=== PATIENT | female | born 1950 | race Caucasian/White ===

== ENCOUNTER → 2017-10-24 15:45 | Outpatient (CLI) | payer OTHER, SELFPAY ==
[2017-10-23 13:35] VITALS: TEMP 36.7
--- NOTE | 2017-10-24 15:51 | DI.CT.S_ITS ---
PROCEDURE: CT ABDOMEN PELVIS W CON INDICATIONS: Left lower quadrant pain for several months TECHNIQUE: After the administration of oral and intravenous contrast, 5 mm thick sections acquired from the diaphragms to the symphysis. 5 mm thick coronal and sagittal reformats were performed. For radiation dose reduction, the following was used: automated exposure control, adjustment of mA and/or kV according to patient size. COMPARISON: None. FINDINGS: Image quality: Excellent. ABDOMEN: Lung bases: Lung bases are clear. Heart size is normal. Solid organs: Nonenhancing 2 cm left lobe of the liver. Cholecystectomy with compensatory dilatation of the extrahepatic biliary system. No obstructing lesion identified. The pancreas, spleen, adrenal glands and kidneys are normal.. Peritoneum and bowel: Stomach and small bowel are normal in caliber and wall thickness. No free fluid or air. Appendectomy. The sigmoid and distal descending colon are decompressed but otherwise normal. Nodes and vessels: No retroperitoneal or mesenteric adenopathy. Aorta and inferior vena cava are normal in caliber. Miscellaneous: No ventral hernias. PELVIS: Genitourinary: Bladder wall thickness is normal. Hysterectomy. Miscellaneous: No inguinal hernias or adenopathy. Bones: No suspicious bony lesions. No vertebral body compression fractures. IMPRESSION: 1. The sigmoid and descending colon are decompressed which causes a degree of physiologic wall thickening. Very mild from colitis cannot be excluded. No obstruction, perforation, or drainable fluid collections. 2. Hepatic nodule most consistent with a simple cyst. Consider confirmation with ultrasound. Dictated by: Rafiq Goel M.D. on 10/25/2017 at 8:24 Approved by: Rafiq Goel M.D. on 10/25/2017 at 8:30
== END ==
PROVIDERS: Family Provider Family Medicine; PCP Family Medicine; Visit Provider Family Medicine
DX: K63.9 Disease of intestine, unspecified (principal); K76.9 Liver disease, unspecified
CPT/HCPCS: 74177; Q9967

== ENCOUNTER → 2018-05-13 13:55 | Outpatient (CLI) | payer OTHER, SELFPAY ==
[2018-05-13 15:32] LABS: Add Manual Diff / Slide Review NO; Basophils Percent Auto 0.8 % (0-2); Eosinophils Percent Auto 2.7 % (2-4); Hematocrit 46.2 % (36-46); Hemoglobin 15.6 g/dL (12.0-16.0); Lymphocytes Percent Auto 27.4 % (25-40); Mean Corpuscular HGB Conc 33.7 % (30-36); Mean Corpuscular Hemoglobin 31.6 PG (26-34); Mean Corpuscular Volume 93.8 fL (80-100); Monocytes Percent Auto 7.3 % (3-14); Neutrophils Absolute Auto 3900 /uL (3000-5900); Neutrophils Percent Auto 61.8 % (50-75); Platelet Count 305 X10^3/uL (150-400); Red Blood Cell Count 4.93 X10^6/uL (4.0-5.2); Red Cell Distribution Width 13.4 % (11.6-14.8); White Blood Cell Count 6.4 X10^3/uL (4.5-11.0)
[2018-05-13 16:51] LABS: Alanine Aminotransferase 30 IU/L (9-52); Albumin 4.8 g/dL (3.5-5.0); Albumin Globulin Ratio 1.8 (1.0-2.8); Alkaline Phosphatase 84 U/L (38-126); Aspartate Aminotransferase 24 IU/L (14-36); Bilirubin Total 0.5 mg/dL (0.2-1.3); Blood Urea Nitrogen 16 mg/dL (7-17); Calcium 9.6 mg/dL (8.4-10.2); Carbon Dioxide 28 mmol/L (22-32); Chloride 101 mmol/L (98-107); Cholesterol 229 mg/dL (140-199); Estimated Glomerular Filt Rate > 60.0 mL/min (>60); Globulin 2.7 g/dL (1.7-4.1); Glucose 92 mg/dL (80-110); HDL Cholesterol 52 mg/dL (40-60); HEMOLYSIS < 15 (0-50); LDL Cholesterol Calculated 115 mg/dL (<100); Potassium 4.8 mmol/L (3.4-5.1); Sodium 144 mmol/L (137-145); Total Protein 7.5 g/dL (6.3-8.2); Triglycerides 309 mg/dL (35-150)
== END ==
PROVIDERS: PCP Family Medicine; Visit Provider Family Medicine
DX: E78.5 Hyperlipidemia, unspecified (principal)
CPT/HCPCS: 36415; 80053; 80061; 85025

== ENCOUNTER → 2018-07-15 13:36 | Outpatient (CLI) | payer OTHER, SELFPAY ==
--- NOTE | 2018-07-15 13:41 | DI.RAD.S_ITS ---
PROCEDURE: XR SKULL<4V INDICATIONS: bump on front of skull TECHNIQUE: 2 view(s) of the skull acquired. COMPARISON: None. FINDINGS: Bones: No fractures. No suspicious bony lesions. Visualized sinuses appear clear. Soft tissues: No soft tissue calcifications. No suspicious soft tissue densities. IMPRESSION: No findings to explain clinical symptoms. If clinical symptoms persist or clinical suspicion for pathology is high, CT is suggested for further evaluation. Dictated by: Beth Rush M.D. on 07/15/2018 at 16:44 Approved by: Beth Rush M.D. on 07/15/2018 at 16:50
== END ==
PROVIDERS: PCP Family Medicine; Visit Provider Family Medicine
DX: M89.9 Disorder of bone, unspecified (principal)
CPT/HCPCS: 70250

== ENCOUNTER → 2018-09-08 13:39 | Outpatient (CLI) | payer OTHER, SELFPAY ==
--- NOTE | 2018-09-08 13:40 | DI.MRI.S_ITS ---
PROCEDURE: MR HEAD/BRAIN WO/W CON INDICATIONS: skull anomaly TECHNIQUE: Noncontrast axial T1 spin echo, axial T2 fast spin echo, sagittal and axial FLAIR, coronal T2 fast spin echo, axial gradient echo, axial diffusion and ADC through the brain. After the administration of contrast, axial and coronal T1 spin echo with fat saturation through the brain. COMPARISON: [facility], CR, XR SKULL<4V, 07/15/2018, 13:45. FINDINGS: Image quality: Excellent. CSF spaces: Basal cisterns are patent. No extra-axial fluid collections. Ventricles are normal in size and shape. Brain: No midline shift. No intracranial bleeds or masses. No abnormal intracranial enhancement. There is mild cerebral volume loss for age. There is moderate periventricular white matter chronic small vessel ischemic change. The brainstem appears normal. Diffusion-weighted images demonstrate no acute ischemic insults. No chronic ischemic insults. Normal intravascular flow voids are present. Skull and face: No suspicious osseous lesions. Calvarial is intact. A small focus of enhancement is noted in the left parietal area near midline, probably a venous jones or arachnoid granulation. Orbits appear normal. Sinuses: Sinuses and mastoids appear clear. IMPRESSION: 1. No suspicious skull lesions identified. 2. Mild cerebral volume loss. 3. Moderate periventricular white matter chronic small vessel ischemic changes. Dictated by: Beth Rush M.D. on 09/08/2018 at 15:23 Approved by: Beth Rush M.D. on 09/08/2018 at 17:36
== END ==
PROVIDERS: Family Provider Family Medicine; PCP Family Medicine; Visit Provider Family Medicine
DX: Q75.9 Congenital malformation of skull and face bones, unspecified (principal)
CPT/HCPCS: 70553; A9579

== ENCOUNTER → 2018-09-30 12:01 | Outpatient (CLI) | payer OTHER, SELFPAY ==
--- NOTE | 2018-09-30 12:05 | DI.MG.S_ITS ---
BILATERAL DIGITAL SCREENING MAMMOGRAM 3D/2D WITH CAD: 09/30/2018 CLINICAL: Baseline exam. Routine screening. No prior exams were available for comparison. The tissue of both breasts is heterogeneously dense. This may lower the sensitivity of mammography. Current study was also evaluated with a Computer Aided Detection (CAD) system. There are benign post operative findings in the left breast. No significant masses, calcifications, or other findings are seen in either breast. IMPRESSION: There is no mammographic evidence of malignancy. A 1 year screening mammogram is recommended. This exam was interpreted at Station ID: [id number]. NOTE: For mammograms, a report in lay terms will be sent to the patient. Approximately 15% of breast malignancies will not be visualized mammographically. In the management of a palpable breast mass, a negative mammogram must not discourage biopsy of a clinically suspicious lesion. Electronically Signed By: Jayden paredes/olman:09/30/2018 17:58:54 letter sent: Normal Exam ACR BI-RADS Category 2: Benign Finding(s) 3342F
== END ==
PROVIDERS: PCP Family Medicine; Visit Provider Family Medicine
DX: Z12.31 Encounter for screening mammogram for malignant neoplasm of breast (principal)
CPT/HCPCS: 77063; 77067

== ENCOUNTER → 2018-10-27 10:50 | Outpatient (CLI) | payer OTHER, SELFPAY ==
[2018-10-27 12:47] LABS: Alanine Aminotransferase 28 IU/L (9-52); Albumin 4.3 g/dL (3.5-5.0); Albumin Globulin Ratio 1.5 (1.0-2.8); Alkaline Phosphatase 79 U/L (38-126); Aspartate Aminotransferase 25 IU/L (14-36); BUN Creatinine Ratio 17.1 (6-22); Bilirubin Total 0.6 mg/dL (0.2-1.3); Blood Urea Nitrogen 12 mg/dL (7-17); Calcium 9.6 mg/dL (8.4-10.2); Carbon Dioxide 29 mmol/L (22-32); Chloride 101 mmol/L (98-107); Cholesterol 148 mg/dL (140-199); Estimated Glomerular Filt Rate > 60.0 mL/min (>60); Globulin 2.9 g/dL (1.7-4.1); Glucose 89 mg/dL (80-110); HDL Cholesterol 54 mg/dL (40-60); HEMOLYSIS < 15 (0-50); LDL Cholesterol Calculated 61 mg/dL (<100); Potassium 4.7 mmol/L (3.4-5.1); Sodium 140 mmol/L (137-145); Total Protein 7.2 g/dL (6.3-8.2); Triglycerides 166 mg/dL (35-150)
== END ==
PROVIDERS: PCP Family Medicine; Visit Provider Family Medicine
DX: E78.5 Hyperlipidemia, unspecified (principal)
CPT/HCPCS: 36415; 80053; 80061

== ENCOUNTER 2018-11-18 09:21 | Day surgery (SDC) | payer OTHER, SELFPAY ==
[2018-11-18] VITALS (8 sets, daily range): BP systolic 98–122; BP diastolic 62–83; PULSE 72–93; RESP 13–20; TEMP 36.4–36.8; O2SAT 94–98; BMI 21.5
--- NOTE | 2018-11-18 | PATH_ITS ---
[facility] Accession Number: [id number] . 01 Material submitted: . PART A: colon - COLON POLYP AT 15CM PART B: colon - COLON POLYPS AT ANAL VERGE . 02 Diagnosis: A. Colon at 15 cm, Polyp: Serrated lesion, most consistent with traditional serrated adenoma; please see comment. Negative for malignancy. . B. Colon at Anal Verge, Polyps: Fragments of hyperplastic polyp. MRV/11/19/2018 . 02 Comment: Part A) A traditional serrated adenoma is considered an advanced adenoma; as such, assurance of complete removal of the lesion and a shortened surveillance interval are recommended. There is no evidence of high-grade cytologic dysplasia or malignancy. . 02 Electronically signed: . Arnaldo Salmeron MD, PhD, Pathologist NPI- [id number] . 01 Gross description: . Part A: COLON POLYP AT 15CM: Received in formalin are multiple fragment(s) of franklin, soft tissue measuring 0.1 x 0.1 x 0.1 cm to 0.4 x 0.4 x 0.3 cm which is entirely submitted and submitted entirely in 1 cassette(s) Part B: COLON POLYPS AT ANAL VERGE: Received in formalin are 2 fragment(s) of franklin, soft tissue measuring 0.2 x 0.2 x 0.2 cm to 0.3 x 0.3 x 0.2 cm which is entirely submitted and submitted entirely in 1 cassette(s) /DMC /DMC . 02 Pathologist provided ICD-10: D12.6, K62.1 . 02 CPT . 834482, [id number] Performed at: 01 [facility] [address] [place] [address] [address], [place], [place] [id number] MD Sabas Longo MD Phone: [phone] Performed at: 02 [facility] [address] [place] [id number] MD Betty Mercado MD Phone: [phone]
[2018-11-18] MEDS: SODIUM CHLORIDE 0.9% 1,000 ML 200 ML IV (10:04)
--- NOTE | 2018-11-18 10:25 | PM.HP.1 ---
History of Present Illness Date Patient Seen: 11/18/18 Time Patient Seen: 10:14 Chief complaint: [id number] Narrative: The patient is woman here for screening colonoscopy. Her last exam was over 10 years ago. She has had a change in her bowel habits. Used to be more liquid now difficult to times to move her bowels. Sometimes she has some discomfort in left lower quadrant. He also in her left kidney. She has a history she thinks of care passing kidney stones. Patient History Medical History (Updated 11/18/18 @ 10:26 by Conor Ruano MD) H/O: hysterectomy (Resolved) Hx of small bowel obstruction (Resolved) Surgical History (Updated 11/18/18 @ 10:26 by Conor Ruano MD) History of laparoscopic cholecystectomy (Resolved) Social History household members: family Smoking Status: Current every day smoker (06/24 PPD) quit status: considering quitting (I'm always considering quitting ) second hand exposure: No alcohol intake: current (a glass of wine, very rarely) substance use type: does not use Family & Social History Social History: household members family Tobacco & Substance use: Smoking Status Current every day smoker alcohol intake current Meds Home Medications Medication Instructions Recorded Confirmed Type adjuvant AS01B (PF), component 0.5 ml IM ONCE #0.5 ml 06/03/18 06/03/18 Rx vial 1 of 2 intramuscular suspension pneumococcal 13-alfredito conj 0.5 ml IM ONCE #0.5 ml 06/03/18 06/03/18 Rx vaccine-dip crm (PF) 0.5 mL IM syringe paroxetine 20 mg tablet 20 mg PO QDAY #90 tab 06/23/18 11/18/18 Rx atorvastatin 20 mg tablet 20 mg PO DAILY #90 tab 11/08/18 11/18/18 Rx Allergies Allergy/AdvReac Type Severity Reaction Status Date / Time penicillin G [PENICILLIN G] Allergy Mild RASH A Verified 06/03/18 15:22 CHILD cephalexin [CEPHALEXIN] Allergy Unknown Verified 06/03/18 15:22 clindamycin [CLINDAMYCIN] Allergy Unknown tongue Verified 06/03/18 15:22 spasms Review of Systems Review of Systems All systems reviewed & are unremarkable except as noted in HPI and below Exam Vital Signs (past 8 hours): - 11/18/18 09:38 Temperature 97.5 F L Pulse Rate 93 H Respiratory Rate 18 Blood Pressure 122/83 Pulse Oximetry 95 Oxygen Delivery Method Room Air Narrative Exam Narrative: Pleasant cooperative patient no apparent distress. Lungs are clear to auscultation. No rales or rhonchi. Heart regular rate and rhythm no murmur gallop. Abdomen is soft nontender without mass. No obvious hernias. Patient is alert and oriented x3. Assessment & Plan Assessment & Plan narrative: The patient for a screening colonoscopy. I have discussed the procedure with them. Risks of bleeding, perforation which would necessitate major operation, failure to find remove all lesions, the potential tattoo were all discussed. All questions were answered. They wished to proceed.
--- NOTE | 2018-11-18 10:28 | PM.PREOP ---
Pre-operative Note Interval Note History & Physical reviewed/Exam performed by Physician: Yes Changes to H&P: No ASA Class (for procedural sedation): I
[2018-11-18] MEDS: MIDAZOLAM 5 MG/5 ML VIAL IV (11:18)
[2018-11-18] MEDS: fentaNYL 250 MCG/5 ML INJ IV (11:19)
--- NOTE | 2018-11-18 11:23 | PM.OP.ENDO ---
Operative Date/Time/Diagnoses Date of procedure: 11/18/18 Time of procedure: 11:23 Pre-op diagnosis: Screening examination. Last exam over 10 years ago Post-op diagnosis: same (Multiple polyps. Very tortuous sigmoid colon) Procedure & Clinicians Study performed: Colonoscopy with hot snare polypectomy and cold biopsy Same procedure as scheduled: Yes Indications: Screening Surgeon: Conor Ruano Procedure Notes SCOAP/Timeout: Performed Procedure in detail: The patient was placed in the left lateral decubitus position and underwent IV sedation directed by the surgeon consisting of fentanyl and Versed. Digital exam was unremarkable. The scope was inserted and advanced through the rectum into the sigmoid, descending, transverse, and ascending colon. I had great difficulty getting through the sigmoid. In fact I had to switch to a pediatric scope and repositioned the patient to get through the sigmoid and then had to apply pressure to get beyond. The cecum was reached identified by the ileocecal valve and the appendiceal opening. The scope was gradually brought out. Polyps were found at 15 cm and distal to that to the anal verge. Only 1 of these was any significant size and this was snared with a hot snare. It appeared to be completely removed. There were other smaller lesions which were biopsied but they may not be neoplastic.. The scope ultimately was retroflexed in the rectum. The appearance was normal except for some small polyp-like lesions which were then removed with cold biopsy forceps. The scope was removed and the patient tolerated the procedure well. Prep was very good. Scope withdrawal time: 7min excludes biopsy times Sedation minutes: 51 Findings: polyp (One larger polyp at 15 cm from the anal verge and multiple smaller ones. All were placed in 2 containers) Specimen(s): other (Polyps) Complications: none Recommendations: Colonscopy in 5 years Follow up: as needed Disposition: PACU
== END 2018-11-18 12:15 ==
PROVIDERS: PCP Family Medicine; Visit Provider Specialist
PROC: 0DJD8ZZ Inspection of Lower Intestinal Tract, Via Natural or Artificial Opening Endoscopic (ICD-10-PCS; CPT 45378; principal; 2018-11-18 10:45)
DX: Z12.11 Encounter for screening for malignant neoplasm of colon (principal); F17.210 Nicotine dependence, cigarettes, uncomplicated; D12.6 Benign neoplasm of colon, unspecified; K62.1 Rectal polyp
CPT/HCPCS: 45385; 45380; 99152; 99153; J2250; J3010

== ENCOUNTER → 2019-06-16 14:31 | Outpatient (CLI) | payer OTHER, SELFPAY | PROVIDERS: PCP Family Medicine; Visit Provider Family Medicine | DX: N39.0 Urinary tract infection, site not specified (principal) | CPT/HCPCS: 87086 ==

== ENCOUNTER → 2020-04-20 15:56 | Outpatient (CLI) | payer OTHER, SELFPAY ==
[2020-04-20 19:08] LABS: Bacteria Urine None Seen; WBC Urine None Seen (0-5/HPF)
[2020-04-20 19:19] LABS: Appearance Urine UA CLOUDY; Bilirubin Urine UA NEGATIVE (NEGATIVE); Color Urine UA YELLOW; Glucose Urine UA NEGATIVE (Negative); Ketones Urine UA TRACE (NEGATIVE); Leukocyte Esterase Urine UA NEGATIVE (NEGATIVE); Nitrite Urine UA NEGATIVE (Negative); Occult Blood Urine UA 3+ (Negative); Protein Urine UA NEGATIVE (Negative); Urobilinogen Urine UA 0.2 E.U./dL (0.2)
[2020-04-20 19:23] LABS: Calcium Oxalate Crystals Urine Few; Culture Indicated Urine Cult Not Indicated; RBC Urine 5-10/HPF (0-5/HPF); Squamous Epithelial Cell Urine 1-5 /HPF (0-5/HPF)
[2020-04-20 19:25] LABS: Amorphous Sediment Urine 2+
== END ==
PROVIDERS: PCP Nurse Practitioner; Visit Provider Nurse Practitioner Family
DX: R30.0 Dysuria (principal)
CPT/HCPCS: 81001

== ENCOUNTER → 2020-04-29 12:22 | Outpatient (CLI) | payer OTHER, SELFPAY ==
--- NOTE | 2020-04-29 12:41 | DI.CT.S_ITS ---
PROCEDURE: CT ABDOMEN PELVIS WO CON INDICATIONS: HEMATURIA TECHNIQUE: Noncontrast 5 mm thick sections acquired from the diaphragms to the symphysis. 5 mm coronal and sagittal reformats were then performed. For radiation dose reduction, the following was used: automated exposure control, adjustment of mA and/or kV according to patient size. COMPARISON: [facility], CT, CT ABDOMEN PELVIS W CON, 10/24/2017, 16:58. FINDINGS: Image quality: Excellent. ABDOMEN: Lung bases: Lung bases are clear. Heart size is normal. Solid organs: Liver is normal in size. Hepatic cyst is unchanged. Gallbladder has been removed . Pancreas is normal in contours. Spleen is normal in size. No adrenal nodules. Kidneys are normal in size. The right kidney demonstrates five areas of new scattered calcification predominantly within the lower pole. Largest measures 3 x 7 mm, Hounsfield units approximately 322. There is a mild prominence of the right renal collecting system. Prominent extrarenal pelvis is present. Ureter is of normal caliber. Peritoneum and bowel: Unenhanced bowel loops demonstrate normal wall thickness and caliber. No free fluid or air. Nodes and vessels: No retroperitoneal or mesenteric adenopathy by size criteria. Aorta and inferior vena cava are normal in caliber. Miscellaneous: No ventral hernias. PELVIS: Genitourinary: Bladder wall thickness is normal. Miscellaneous: No inguinal hernias or adenopathy. Bones: No suspicious bony lesions. No vertebral body compression fractures. IMPRESSION: 1. Multiple right renal calculi with mild appearance of right renal collecting system prominence. There is a prominent extrarenal pelvis with normal ureter. UPJ obstruction cannot be excluded. It is noted that this was minimally prominent in 2018. Dictated by: Chiara Santos M.D. on 04/29/2020 at 13:38 Approved by: Chiara Santos M.D. on 04/29/2020 at 13:45
[2020-04-29 14:05] LABS: Creatinine Urine Random 149.7 mg/dL
[2020-04-29 14:09] LABS: Microalbumi Creatinin Ratio Ur 31.3 ug/mg CR (<30); Microalbumin Urine Random 4.7 mg/dL (0-1.6)
[2020-04-29 14:37] LABS: Alanine Aminotransferase 16 IU/L (<35); Albumin 4.8 g/dL (3.5-5.0); Albumin Globulin Ratio 1.5 (1.0-2.8); Alkaline Phosphatase 95 U/L (38-126); Aspartate Aminotransferase 29 IU/L (14-36); BUN Creatinine Ratio 23.9 (6-22); Bilirubin Total 0.6 mg/dL (0.2-1.3); Blood Urea Nitrogen 17 mg/dL (7-17); Calcium 9.8 mg/dL (8.4-10.2); Carbon Dioxide 31 mmol/L (22-32); Chloride 102 mmol/L (98-107); Cholesterol 139 mg/dL (140-199); Estimated Glomerular Filt Rate > 60.0 mL/min (>60); Globulin 3.2 g/dL (1.7-4.1); Glucose 95 mg/dL (80-110); HDL Cholesterol 54 mg/dL (40-60); HEMOLYSIS < 15 (0-50); LDL Cholesterol Calculated 59 mg/dL (<100); Potassium 3.9 mmol/L (3.4-5.1); Sodium 140 mmol/L (137-145); Triglycerides 132 mg/dL (35-150)
[2020-04-29 15:25] LABS: Free T3, Triiodothyronine Free 3.17 pg/mL (2.77-5.27); Free T4, Direct Thyroxine 1.07 ng/dL (0.78-2.19)
[2020-04-29 15:39] LABS: Thyroid Stimulating Hormone 3.23 uIU/mL (0.47-4.68)
== END ==
PROVIDERS: PCP Nurse Practitioner; Referring Provider Nurse Practitioner; Visit Provider Nurse Practitioner
DX: R31.9 Hematuria, unspecified (principal); N20.0 Calculus of kidney; E78.5 Hyperlipidemia, unspecified; Z79.899 Other long term (current) drug therapy
CPT/HCPCS: 36415; 74176; 80053; 80061; 82043; 82570; 84439; 84443; 84481

== ENCOUNTER 2020-05-19 11:25 | Emergency (ER) | payer OTHER, SELFPAY ==
[2020-05-19 11:31] VITALS: BP 132/77; PULSE 93; RESP 16; TEMP 36.8; O2SAT 98; BMI 21.0
[2020-05-19 12:09] LABS: Bacteria Urine None Seen
[2020-05-19 12:14] LABS: Culture Indicated Urine Specimen Cultured; Mucus Urine 2+ (Negative); RBC Urine 1-5/HPF (0-5/HPF); Squamous Epithelial Cell Urine 0-1 /HPF (0-5/HPF); WBC Urine 5-10/HPF (0-5/HPF)
[2020-05-19 13:14] VITALS: PULSE 71; RESP 22; O2SAT 95
[2020-05-19 13:23] LABS: Add Manual Diff / Slide Review NO; Basophils Absolute Auto 100 /uL (0-100); Eosinophils Absolute Auto 100 /uL (0-450); Eosinophils Percent Auto 1.8 % (2-4); Hematocrit 42.3 % (36-46); Hemoglobin 14.2 g/dL (12.0-16.0); Lymphocytes Absolute Auto 1500 /uL (1100-4500); Lymphocytes Percent Auto 24.2 % (25-40); Mean Corpuscular HGB Conc 33.5 % (30-36); Mean Corpuscular Hemoglobin 31.3 PG (26-34); Mean Corpuscular Volume 93.4 fL (80-100); Monocytes Absolute Auto 400 /uL (0-900); Monocytes Percent Auto 6.8 % (3-14); Neutrophils Absolute Auto 4000 /uL (1500-7000); Neutrophils Percent Auto 66.2 % (50-75); Platelet Count 264 X10^3/uL (150-400); Red Blood Cell Count 4.52 X10^6/uL (4.0-5.2); Red Cell Distribution Width 13.1 % (11.6-14.8)
[2020-05-19 13:30] VITALS: BP 124/71; PULSE 66; RESP 19; O2SAT 96
[2020-05-19 13:33] LABS: Alanine Aminotransferase 16 IU/L (<35); Albumin 4.4 g/dL (3.5-5.0); Albumin Globulin Ratio 1.4 (1.0-2.8); Alkaline Phosphatase 97 U/L (38-126); Aspartate Aminotransferase 26 IU/L (14-36); BUN Creatinine Ratio 25.4 (6-22); Bilirubin Total 0.5 mg/dL (0.2-1.3); Blood Urea Nitrogen 16 mg/dL (7-17); Calcium 9.5 mg/dL (8.4-10.2); Carbon Dioxide 25 mmol/L (22-32); Chloride 105 mmol/L (98-107); Estimated Glomerular Filt Rate > 60.0 mL/min (>60); Globulin 3.2 g/dL (1.7-4.1); Glucose 97 mg/dL (80-110); HEMOLYSIS < 15 (0-50); Lactate (Lactic Acid) 0.9 mmol/L (0.7-2.1); Potassium 4.2 mmol/L (3.4-5.1); Sodium 136 mmol/L (137-145); Total Protein 7.6 g/dL (6.3-8.2)
[2020-05-19] MEDS: KETOROLAC 60 MG/2 ML VIAL 15 MG IV (13:49)
[2020-05-19] MEDS: SODIUM CHLORIDE 0.9% 500 ML 1000 ML IV (13:49)
[2020-05-19 14:00] VITALS: BP 122/75; PULSE 68; O2SAT 95
--- NOTE | 2020-05-19 14:11 | ED_ITS ---
HPI - Female Genitourinary <JULIA Yao - Last Filed: 05/19/20 17:49> General Chief complaint: Urogenital-Female Stated complaint: kidney stones/hematuria x1 month Time Seen by Provider: 05/19/20 12:55 Source: patient Mode of arrival: Ambulatory Limitations: no limitations History of Present Illness HPI Narrative: This is a 69-year-old female, smoker, who has past medical histor y joint pain and hyperlipidemia presents to ED with Kidney stone and can't take it any more. Patient reports intermittent nausea and intermittent left back pain. Patient was seen by PCP HANDLE BENDER Hanna Garcia in April with urinary burning sensation and was diagnosed with right-sided kidney stones according to CT scan. Patient had urine test done at that time and seen occult blood then. Patient r eports she has been feeling very tired and she feels as something floating around the bladder but states sharp discomfort and feeling sensitive in urethral region when asked to point the discomfort. Patient also reports feeling like incompletely emptying her bladder at times with pressure sensation. Patient denies fever, chills, chest pain, dyspnea, abdominal pain but states abdomen feels tight and pressure. Patient reports 1 loose bowel movements daily which is a change from her usual bowel habits. Patient is not currently taking anything for pain or nausea. She states does not do well with pain medications due to nausea. Patient denies hematuria. She reports has an appointment with Dr. Short on 07/07/20. Related Data Previous Rx's Medication Instructions Recorded adjuvant AS01B (PF)vial 1 of 2 0.5 ml IM ONCE #0.5 ml 06/03/18 pneumoc 13-alfredito conj-dip cr(PF) 0.5 0.5 ml IM ONCE #0.5 ml 06/03/18 mL IM syringe atorvastatin 20 mg tablet 20 mg PO DAILY #90 tab 08/25/19 paroxetine HCl 20 mg tablet 20 mg PO QDAY #90 tab 08/25/19 ondansetron 4 mg PO Q8H PRN #7 tab 05/19/20 tamsulosin [Flomax] 0.4 mg PO BEDTIME #14 cap 05/19/20 Allergies Allergy/AdvReac Type Severity Reaction Status Date / Time penicillin G [PENICILLIN G] Allergy Mild RASH A Verified 05/19/20 11:31 CHILD cephalexin [CEPHALEXIN] Allergy Unknown Verified 05/19/20 11:31 clindamycin [CLINDAMYCIN] Allergy Unknown tongue Verified 05/19/20 11:31 spasms Review of Systems <JULIA Yao - Last Filed: 05/19/20 17:49> Review of Systems Narrative: General: Denies fever, chills, fatigue, (+) tired, malaise, sweats. HEENT: Denies sinus pain, ear pain, sore throat, difficulty swallowing, dizziness. Respiratory: Denies dyspnea, cough, wheezing, hemoptysis, sputum. Cardiovascular: Denies chest pain, palpitations, orthopnea, edema. Gastrointestinal: Denies (+) nausea, vomiting, abdominal pain, diarrhea, constipation, melena. : See HPI Musculoskeletal: See HPI Skin: Denies rash, skin lesions, or other. Neurologic: Denies weakness, headache, numbness, change in speech, confusion, seizures, incoordination. Psychiatric: No concerning psychosocial issues. 12-point review of systems is negative except for those stated above. Patient History <JULIA Yao - Last Filed: 05/19/20 17:49> Medical History (Updated 05/19/20 @ 14:55 by JULIA Yao) Depression with anxiety Hx of small bowel obstruction Non-compliance Obstructive defect of renal pelvis Right kidney stone Surgical History H/O: hysterectomy History of laparoscopic cholecystectomy alcohol intake frequency: holidays/special occasions only Substance Use Type: does not use Exam <JULIA Yao - Last Filed: 05/19/20 17:49> Narrative Exam Narrative: GEN: Alert, oriented x 3, well appearing and nourished, and in no acute distress. Head: Normal cephalic, atraumatic. No scalp or temporal tenderness, palpable mass or rash. EYES: Pupils are equal, round, and reactive to light and accommodation. Extraocular muscles are intact bilaterally. There is no subconjunctival hemorrhage, exudate and sclera non-icteric. ENT: Hearing grossly intact. Nose without bleeding, purulent discharge or d eviation. Mucous membrane moist, no mucosal lesion. Throat without erythema, tonsillar hypertrophy or exudate. Uvula in midline, airway patent. Neck: Trachea in midline. No JVD, non-tender without lymphadenopathy. No masses or thyroid megaly. Supple, non-tender and no meningeal signs. CARDIAC: Normal regular rate and rhythm without murmurs, gallops, or rubs. No chest wall tenderness. No peripheral edema, cyanosis or pallor. Capillary refill is less than 2 seconds. RESPIRATORY: Lungs are clear to auscultate bilaterally. No cough, wheezes, rales, or rhonchi. No stridor, respiratory distress, increase work of breathing, or accessary muscle used. ABD: Abdomen soft, nontender and non-distended. No guarding or rebound tenderness to palpate. Bowel sounds are normal in all 4 quadrants. There is no palpable masses or organomegaly. EXT: Full painless ROM of all extremities with no loss of sensation, strength, effusion or edema. SKIN: Warm, dry, normal color for patient. No erythema, lesions or rash over visible areas. BACK: Nontender without deformity or crepitance. Mild left flank tenderness to percuss. NEUROLOGICAL: Alert and oriented to place, time and person. Sensation and motor function intact bilaterally. No facial droops, dysphasia. PSYCHIATRIC: Good judgement and reason, without hallucinations, abnormal affect or abnormal behaviors during the examination. Patient is not suicidal. Initial Vital Signs Initial Vital Signs: Vital Signs Temperature 98.2 F 05/19/20 11:31 Pulse Rate 93 H 05/19/20 11:31 Respiratory Rate 16 05/19/20 11:31 Blood Pressure 132/77 05/19/20 11:31 Pulse Oximetry 98 05/19/20 11:31 <Dejan Rivas MD - Last Filed: 05/19/20 19:06> Initial Vital Signs Initial Vital Signs: Vital Signs Temperature 98.2 F 05/19/20 11:31 Pulse Rate 93 H 05/19/20 11:31 Respiratory Rate 16 05/19/20 11:31 Blood Pressure 132/77 05/19/20 11:31 Pulse Oximetry 98 05/19/20 11:31 Scores <JULIA Yao - Last Filed: 05/19/20 17:49> GCS Demarcus coma scale eye opening: Spontaneous Demarcus coma scale verbal response: Orientated Demarcus coma scale motor response: Obey commands Demarcus coma scale total score: 15 qSOFA Altered Mental Status (GCS <15): No Respiratory rate greater than/equal to 22: No Systolic blood pressure less than or equal to 100: No qSOFA Total: 0 0-1 Not High Risk 1-3 High risk Course <JULIA Yao - Last Filed: 05/19/20 17:49> Orders Ordered: ED Orders 05/19/20 11:44 Urine Culture Stat Urine Microscopic Stat 05/19/20 13:03 Complete Blood Count AUTO DIFF Stat Comprehensive Metabolic Panel Stat Lactate (Lactic Acid) Stat Discontinued Medications Sodium Chloride (Normal Saline 0.9%) 500 mls @ 1,000 mls/hr IV BOLUS ONE Stop: 05/19/20 14:04 Last Infusion: 05/19/20 14:35 Dose: 0 mls/hr Documented by: Admin: 05/19/20 13:49 Dose: 1,000 mls/hr Documented by: IVANIA Ketorolac Tromethamine (Ketorolac 60 Mg/2 Ml Vial) 15 mg IV NOW ONE Stop: 05/19/20 13:36 Last Admin: 05/19/20 13:49 Dose: 15 mg Documented by: IVANIA Vital Signs Vital signs: Vital Signs - 8 hr 05/19/20 11:31 05/19/20 13:14 05/19/20 13:30 Temperature 98.2 F Pulse Rate 93 H 71 66 Respiratory Rate 16 22 19 Blood Pressure 132/77 124/71 Pulse Oximetry 98 95 96 05/19/20 14:00 05/19/20 14:30 Temperature Pulse Rate 68 61 Respiratory Rate 18 Blood Pressure 122/75 133/69 Pulse Oximetry 95 97 <Dejan Rivas MD - Last Filed: 05/19/20 19:06> Orders Ordered: ED Orders 05/19/20 11:44 Urine Culture Stat Urine Microscopic Stat 05/19/20 13:03 Complete Blood Count AUTO DIFF Stat Comprehensive Metabolic Panel Stat Lactate (Lactic Acid) Stat Discontinued Medications Sodium Chloride (Normal Saline 0.9%) 500 mls @ 1,000 mls/hr IV BOLUS ONE Stop: 05/19/20 14:04 Last Infusion: 05/19/20 14:35 Dose: 0 mls/hr Documented by: Admin: 05/19/20 13:49 Dose: 1,000 mls/hr Documented by: IVANIA Ketorolac Tromethamine (Ketorolac 60 Mg/2 Ml Vial) 15 mg IV NOW ONE Stop: 05/19/20 13:36 Last Admin: 05/19/20 13:49 Dose: 15 mg Documented by: IVANIA Vital Signs Vital signs: Vital Signs - 8 hr 05/19/20 11:31 05/19/20 13:14 05/19/20 13:30 Temperature 98.2 F Pulse Rate 93 H 71 66 Respiratory Rate 16 22 19 Blood Pressure 132/77 124/71 Pulse Oximetry 98 95 96 05/19/20 14:00 05/19/20 14:30 Temperature Pulse Rate 68 61 Respiratory Rate 18 Blood Pressure 122/75 133/69 Pulse Oximetry 95 97 MDM - Female Genitourinary <JULIA Yao - Last Filed: 05/19/20 17:49> Differential Diagnosis Differential diagnosis: Likely urinary tract infection and other (Anemia, sepsis, decreased kidney function, kidney stone, kidney infection) Medical Records Attestation: I reviewed the patient's medical records. Lab Data Attestation: I reviewed the patient's lab results. Result diagrams: 05/19/20 13:03 05/19/20 13:03 Labs: Lab Results 05/19/20 05/19/20 05/19/20 Range/Units 11:44 13:03 13:03 WBC 6.0 (4.5-11.0) X10^3/uL RBC 4.52 (4.0-5.2) X10^6/uL Hgb 14.2 (12.0-16.0) g/dL Hct 42.3 (36-46) % MCV 93.4 (80-100) fL MCH 31.3 (26-34) PG MCHC 33.5 (30-36) % RDW 13.1 (11.6-14.8) % Plt Count 264 (150-400) X10^3/uL Neut % (Auto) 66.2 (50-75) % Lymph % (Auto) 24.2 L (25-40) % [place] % (Auto) 6.8 (3-14) % Eos % (Auto) 1.8 L (2-4) % Baso % (Auto) 1.0 (0-2) % Neut # (Auto) 4000 (6768-1042) /uL Lymph # (Auto) 1500 (2206-5446) /uL [place] # (Auto) 400 (0-900) /uL Eos # (Auto) 100 (0-450) /uL Baso # (Auto) 100 (0-100) /uL Sodium 136 L (137-145) mmol/L Potassium 4.2 (3.4-5.1) mmol/L Chloride 105 (98-107) mmol/L Carbon Dioxide 25 (22-32) mmol/L BUN 16 (7-17) mg/dL Creatinine 0.63 (0.52-1.04) mg/dL Estimated GFR > 60.0 (>60) mL/min BUN/Creatinine Ratio 25.4 H (6-22) Glucose 97 (80-110) mg/dL Lactate (0.7-2.1) mmol/L Calcium 9.5 (8.4-10.2) mg/dL Total Bilirubin 0.5 (0.2-1.3) mg/dL AST 26 (14-36) IU/L ALT 16 (<35) IU/L Alkaline Phosphatase 97 (38-126) U/L Total Protein 7.6 (6.3-8.2) g/dL Albumin 4.4 (3.5-5.0) g/dL Globulin 3.2 (1.7-4.1) g/dL Albumin/Globulin Ratio 1.4 (1.0-2.8) Urine RBC 1-5/hpf (0-5/HPF) Urine WBC 5-10/hpf H (0-5/HPF) Ur Squamous Epith Cells 0-1 /hpf (0-5/HPF) Urine Bacteria None seen (None) Urine Mucus 2+ H (Negative) Ur Culture Indicated? Specimen cultured 05/19/20 Range/Units 13:03 WBC (4.5-11.0) X10^3/uL RBC (4.0-5.2) X10^6/uL Hgb (12.0-16.0) g/dL Hct (36-46) % MCV (80-100) fL MCH (26-34) PG MCHC (30-36) % RDW (11.6-14.8) % Plt Count (150-400) X10^3/uL Neut % (Auto) (50-75) % Lymph % (Auto) (25-40) % King[place] % (Auto) (3-14) % Eos % (Auto) (2-4) % Baso % (Auto) (0-2) % Neut # (Auto) (7306-0536) /uL Lymph # (Auto) (8236-6051) /uL King[place] # (Auto) (0-900) /uL Eos # (Auto) (0-450) /uL Baso # (Auto) (0-100) /uL Sodium (137-145) mmol/L Potassium (3.4-5.1) mmol/L Chloride (98-107) mmol/L Carbon Dioxide (22-32) mmol/L BUN (7-17) mg/dL Creatinine (0.52-1.04) mg/dL Estimated GFR (>60) mL/min BUN/Creatinine Ratio (6-22) Glucose (80-110) mg/dL Lactate 0.9 (0.7-2.1) mmol/L Calcium (8.4-10.2) mg/dL Total Bilirubin (0.2-1.3) mg/dL AST (14-36) IU/L ALT (<35) IU/L Alkaline Phosphatase (38-126) U/L Total Protein (6.3-8.2) g/dL Albumin (3.5-5.0) g/dL Globulin (1.7-4.1) g/dL Albumin/Globulin Ratio (1.0-2.8) Urine RBC (0-5/HPF) Urine WBC (0-5/HPF) Ur Squamous Epith Cells (0-5/HPF) Urine Bacteria (None) Urine Mucus (Negative) Ur Culture Indicated? Urine Dip Bedside Urine Glucose Negative Bedside Urine Bilirubin - Negative Bedside Urine Ketone - Negative Urine Specific [place] 1.025 Bedside Urine Occult Blood ++ Bedside Urine pH 6.0 Bedside Urine Protein - Negative Bedside Urine Urobilinogen - Negative Bedside Urine Nitrite - Negative Bedside Urine Leukocytes +/- 15 Esterase MDM Narrative Medical decision making narrative: This is a 69-year-old female who presents to ED with known kidney stone presents to ED with chief complain of dysuria, occasional flank pain and nausea, feeling tired and occasional incomplete emptying bladder sensation. No indications for sepsis with normal lactate. No leukocytosis. Urine test shows +/-leuks esterase but no nitrites. Urine cultures pending. No signs of anemia with stable H&H 14.2/42.3. Unremarkable chemistry test with normal kidney function. Patient informed her generalize feeling tired is not likely related to her current diagnosis of stone. Patient informed the above findings. Patient advised to follow-up with Dr. Short by calling his office and return precautions were discussed with patient. Patient offered a few tabs of Zofran to use as needed for nausea and patient declined strong narcotic pain medications. Advised to take [id number] Tylenol and or Motrin as needed and hydrate adequately. Patient verbalized understanding a nd in agreement with the treatment plan. <Dejan Rivas MD - Last Filed: 05/19/20 19:06> Lab Data Labs: Lab Results 05/19/20 05/19/20 05/19/20 Range/Units 11:44 13:03 13:03 WBC 6.0 (4.5-11.0) X10^3/uL RBC 4.52 (4.0-5.2) X10^6/uL Hgb 14.2 (12.0-16.0) g/dL Hct 42.3 (36-46) % MCV 93.4 (80-100) fL MCH 31.3 (26-34) PG MCHC 33.5 (30-36) % RDW 13.1 (11.6-14.8) % Plt Count 264 (150-400) X10^3/uL Neut % (Auto) 66.2 (50-75) % Lymph % (Auto) 24.2 L (25-40) % King[place] % (Auto) 6.8 (3-14) % Eos % (Auto) 1.8 L (2-4) % Baso % (Auto) 1.0 (0-2) % Neut # (Auto) 4000 (5532-1378) /uL Lymph # (Auto) 1500 (1802-5188) /uL King[place] # (Auto) 400 (0-900) /uL Eos # (Auto) 100 (0-450) /uL Baso # (Auto) 100 (0-100) /uL Sodium 136 L (137-145) mmol/L Potassium 4.2 (3.4-5.1) mmol/L Chloride 105 (98-107) mmol/L Carbon Dioxide 25 (22-32) mmol/L BUN 16 (7-17) mg/dL Creatinine 0.63 (0.52-1.04) mg/dL Estimated GFR > 60.0 (>60) mL/min BUN/Creatinine Ratio 25.4 H (6-22) Glucose 97 (80-110) mg/dL Lactate (0.7-2.1) mmol/L Calcium 9.5 (8.4-10.2) mg/dL Total Bilirubin 0.5 (0.2-1.3) mg/dL AST 26 (14-36) IU/L ALT 16 (<35) IU/L Alkaline Phosphatase 97 (38-126) U/L Total Protein 7.6 (6.3-8.2) g/dL Albumin 4.4 (3.5-5.0) g/dL Globulin 3.2 (1.7-4.1) g/dL Albumin/Globulin Ratio 1.4 (1.0-2.8) Urine RBC 1-5/hpf (0-5/HPF) Urine WBC 5-10/hpf H (0-5/HPF) Ur Squamous Epith Cells 0-1 /hpf (0-5/HPF) Urine Bacteria None seen (None) Urine Mucus 2+ H (Negative) Ur Culture Indicated? Specimen cultured 05/19/20 Range/Units 13:03 WBC (4.5-11.0) X10^3/uL RBC (4.0-5.2) X10^6/uL Hgb (12.0-16.0) g/dL Hct (36-46) % MCV (80-100) fL MCH (26-34) PG MCHC (30-36) % RDW (11.6-14.8) % Plt Count (150-400) X10^3/uL Neut % (Auto) (50-75) % Lymph % (Auto) (25-40) % King[place] % (Auto) (3-14) % Eos % (Auto) (2-4) % Baso % (Auto) (0-2) % Neut # (Auto) (4701-9490) /uL Lymph # (Auto) (4629-0158) /uL Kingman # (Auto) (0-900) /uL Eos # (Auto) (0-450) /uL Baso # (Auto) (0-100) /uL Sodium (137-145) mmol/L Potassium (3.4-5.1) mmol/L Chloride (98-107) mmol/L Carbon Dioxide (22-32) mmol/L BUN (7-17) mg/dL Creatinine (0.52-1.04) mg/dL Estimated GFR (>60) mL/min BUN/Creatinine Ratio (6-22) Glucose (80-110) mg/dL Lactate 0.9 (0.7-2.1) mmol/L Calcium (8.4-10.2) mg/dL Total Bilirubin (0.2-1.3) mg/dL AST (14-36) IU/L ALT (<35) IU/L Alkaline Phosphatase (38-126) U/L Total Protein (6.3-8.2) g/dL Albumin (3.5-5.0) g/dL Globulin (1.7-4.1) g/dL Albumin/Globulin Ratio (1.0-2.8) Urine RBC (0-5/HPF) Urine WBC (0-5/HPF) Ur Squamous Epith Cells (0-5/HPF) Urine Bacteria (None) Urine Mucus (Negative) Ur Culture Indicated? Urine Dip Bedside Urine Glucose Negative Bedside Urine Bilirubin - Negative Bedside Urine Ketone - Negative Urine Specific [place] 1.025 Bedside Urine Occult Blood ++ Bedside Urine pH 6.0 Bedside Urine Protein - Negative Bedside Urine Urobilinogen - Negative Bedside Urine Nitrite - Negative Bedside Urine Leukocytes +/- 15 Esterase Discharge Plan Departure Patient Disposition: Home Clinical Impression: Kidney stone on right side, Dysuria Instructions: DI for Kidney Stones Activity Restrictions/Additional Instructions: You have been diagnosed with [right-sided kidney stone according to recent CT results. No indications for kidney infections or severe infection. Kidney function test is normal. Urine culture is pending and you will receive a phone call from us if you require antibiotic medication treatment.]. What to do: *Take your medications as directed. Please take Zofran as needed for nausea. Please take tamsulosin/Flomax at bedtime daily to help passing the stone. This can cause hypotension so please be careful when you getting out of bed in the middle of the night for balance. Medications have been transmitted to [facility], [place]. *Follow up with your primary care provider in 2-3 days, call for an appointment. Please call Dr. Short office. Let them know you were seen in the ED and that we asked you to be seen in follow up. *Return to ED if you have any new, worsening, or concerning symptoms, such as [increasing pain, unable to tolerate fluids or medications, fever, severe hematuria, abdominal pain, breathing difficulty, or any acute concerns]. Prescriptions: New ondansetron 4 mg tablet,disintegrating 4 mg PO Q8H PRN (Reason: nausea and vomiting) Qty: 7 RF: 0 tamsulosin [Flomax] 0.4 mg capsule 0.4 mg PO BEDTIME Qty: 14 RF: 0 No Action pneumoc 13-alfredito conj-dip cr(PF) [Prevnar 13 (PF)] 0.5 mL syringe 0.5 ml IM ONCE Qty: 0.5 RF: 0 adjuvant AS01B (PF)vial 1 of 2 [Shingrix Adjuvant Component-PF] suspension 0.5 ml IM ONCE Qty: 0.5 RF: 0 atorvastatin 20 mg tablet 20 mg PO DAILY Qty: 90 RF: 3 paroxetine HCl [Paxil] 20 mg tablet 20 mg PO QDAY Qty: 90 RF: 3 Referrals: Hanna Garcia ARNP [Primary Care Provider] - Steve Short MD [Physician] -
[2020-05-19 14:30] VITALS: BP 133/69; PULSE 61; RESP 18; O2SAT 97
== END 2020-05-19 15:01 | disposition home or self-care (01) ==
PROVIDERS: Emergency Medicine; Emergency Provider Nurse Practitioner Family; PCP Nurse Practitioner
DX: N20.0 Calculus of kidney (principal); R30.0 Dysuria; R31.9 Hematuria, unspecified; R11.0 Nausea; M54.9 Dorsalgia, unspecified
CPT/HCPCS: 80053; 81003; 81015; 83605; 85025; 87086; 96361; 96374; 99281; 99284; J1885

== ENCOUNTER → 2020-06-28 14:24 | Outpatient (CLI) | payer OTHER, SELFPAY ==
--- NOTE | 2020-06-28 14:54 | DI.RAD.S_ITS ---
PROCEDURE: XR KUB INDICATIONS: kidney stone TECHNIQUE: One view of the abdomen acquired. COMPARISON: [facility], CT, CT ABDOMEN PELVIS WO CON, 04/29/2020, 12:34. FINDINGS: Surgical changes and devices: Right upper quadrant cholecystectomy clips Bowel: Bowel gas pattern is normal. Soft tissues: No suspicious abdominal calcifications. Visualized solid organ contours appear normal in size. Bones: No suspicious bony lesions. IMPRESSION: Prior cholecystectomy, nonspecific bowel gas pattern. A urinary tract stone is not seen. The calculi seen within the collecting system of the right kidney on CT scanning cannot be accurately detected by plain film imaging today. Dictated by: Andrew Madodx M.D. on 06/28/2020 at 15:48 Approved by: Andrew Maddox M.D. on 06/28/2020 at 15:50
[2020-07-01 15:10] LABS: Appearance Urine UA CLEAR; Bilirubin Urine UA NEGATIVE (NEGATIVE); Color Urine UA YELLOW; Glucose Urine UA NEGATIVE (Negative); Ketones Urine UA NEGATIVE (NEGATIVE); Leukocyte Esterase Urine UA TRACE (NEGATIVE); Nitrite Urine UA NEGATIVE (Negative); Occult Blood Urine UA 1+ (Negative); Protein Urine UA NEGATIVE (Negative); Specific Gravity Urine UA 1.025 (1.000-1.035); Urobilinogen Urine UA 0.2 E.U./dL (0.2)
[2020-07-01 15:12] LABS: pH Urine UA 5.5 (4.5-8.0)
[2020-07-01 15:17] LABS: Amorphous Sediment Urine 1+; Bacteria Urine Moderate (10-30); Culture Indicated Urine Specimen Cultured; Mucus Urine 1+ (Negative); RBC Urine 1-5/HPF (0-5/HPF); Squamous Epithelial Cell Urine 1-5 /HPF (0-5/HPF); WBC Urine 10-30/HPF (0-5/HPF)
== END ==
PROVIDERS: PCP Nurse Practitioner; Referring Provider Specialist; Visit Provider Specialist
DX: N20.0 Calculus of kidney (principal)
CPT/HCPCS: 74018; 81003; 81015; 87077; 87086; 87186

== ENCOUNTER → 2021-01-26 10:09 | Outpatient (CLI) | payer OTHER, SELFPAY ==
--- NOTE | 2021-01-26 10:11 | DI.RAD.S_ITS ---
PROCEDURE: XR KUB INDICATIONS: Kidney Stones TECHNIQUE: One view of the abdomen acquired. COMPARISON: [facility], CT, CT ABDOMEN PELVIS WO CON, 04/29/2020, 12:34. [facility], CR, XR KUB, 06/28/2020, 14:56. FINDINGS: Surgical changes and devices: Right upper quadrant surgical clips. Bowel: Bowel gas pattern is normal. Soft tissues: Radiographically, no definite urolithiasis is identified. Bones: No suspicious bony lesions. IMPRESSION: No radiographically visible urolithiasis (including the right nephrolithiasis seen on the prior CT exam from the 04/29/20.) Dictated by: Beto Pittman M.D. on 01/26/2021 at 11:36 Approved by: Beto Pittman M.D. on 01/26/2021 at 11:52
== END ==
PROVIDERS: PCP Nurse Practitioner; Referring Provider Specialist; Visit Provider Specialist
DX: N20.0 Calculus of kidney (principal)
CPT/HCPCS: 74018

== ENCOUNTER → 2021-07-21 12:18 | Outpatient (CLI) | payer OTHER, SELFPAY ==
--- NOTE | 2021-07-21 12:21 | DI.RAD.S_ITS ---
PROCEDURE: XR KUB INDICATIONS: Kidney stone TECHNIQUE: One view of the abdomen acquired. COMPARISON: [facility], , XR KUB, 01/26/2021, 10:15. FINDINGS: Surgical changes and devices: Surgical clips noted in the right upper quadrant. Bowel: Bowel gas pattern is normal. Soft tissues: No suspicious abdominal calcifications. Visualized solid organ contours appear normal in size. Bones: No suspicious bony lesions. IMPRESSION: No radiographic evidence of renal calculi Approved by: Rolo Ortiz M.D. on 07/21/2021 at 15:09
[2021-07-21 13:39] LABS: Add Manual Diff / Slide Review NO; Basophils Absolute Auto 100 /uL (0-100); Basophils Percent Auto 0.8 % (0-2); Eosinophils Absolute Auto 100 /uL (0-450); Eosinophils Percent Auto 1.9 % (2-4); Hematocrit 40.6 % (36-46); Hemoglobin 13.8 g/dL (12.0-16.0); Lymphocytes Absolute Auto 1500 /uL (1100-4500); Lymphocytes Percent Auto 24.1 % (25-40); Mean Corpuscular Hemoglobin 31.7 PG (26-34); Mean Corpuscular Volume 93.2 fL (80-100); Monocytes Absolute Auto 400 /uL (0-900); Monocytes Percent Auto 6.5 % (3-14); Neutrophils Absolute Auto 4100 /uL (1500-7000); Neutrophils Percent Auto 66.7 % (50-75); Platelet Count 225 X10^3/uL (150-400); Red Blood Cell Count 4.35 X10^6/uL (4.0-5.2); Red Cell Distribution Width 13.6 % (11.6-14.8); White Blood Cell Count 6.2 X10^3/uL (4.5-11.0)
[2021-07-21 13:57] LABS: Appearance Urine UA CLEAR; Bilirubin Urine UA NEGATIVE (NEGATIVE); Color Urine UA YELLOW; Glucose Urine UA NEGATIVE (Negative); Ketones Urine UA NEGATIVE (NEGATIVE); Leukocyte Esterase Urine UA NEGATIVE (NEGATIVE); Nitrite Urine UA NEGATIVE (Negative); Occult Blood Urine UA 1+ (Negative); Protein Urine UA NEGATIVE (Negative); Specific Gravity Urine UA <=1.005 (1.000-1.035); Urobilinogen Urine UA 0.2 E.U./dL (0.2)
[2021-07-21 14:36] LABS: Bacteria Urine None Seen; Culture Indicated Urine Cult Not Indicated; RBC Urine 0-1/HPF (0-5/HPF); Squamous Epithelial Cell Urine 0-1 /HPF (0-5/HPF); Transitional Epi Cells Urine 0-1/HPF (0-5/HPF); WBC Urine 0-1/HPF (0-5/HPF)
== END ==
PROVIDERS: PCP Nurse Practitioner; Referring Provider Specialist; Visit Provider Specialist
DX: N20.0 Calculus of kidney (principal); R30.0 Dysuria; R53.83 Other fatigue
CPT/HCPCS: 36415; 74018; 81001; 85025

== ENCOUNTER → 2021-07-25 12:39 | Outpatient (CLI) | payer OTHER, SELFPAY ==
[2021-07-25 13:52] LABS: Occult Blood 1 Negative (Negative); Occult Blood 2 Negative (Negative); Occult Blood 3 Negative (Negative)
== END ==
PROVIDERS: PCP Nurse Practitioner; Referring Provider Nurse Practitioner; Visit Provider Nurse Practitioner
DX: K92.2 Gastrointestinal hemorrhage, unspecified (principal)
CPT/HCPCS: 82270

== ENCOUNTER → 2022-09-06 12:15 | Outpatient (CLI) | payer OTHER, SELFPAY ==
[2022-09-06 12:44] LABS: Add Manual Diff / Slide Review NO; Basophils Absolute Auto 100 /uL (0-100); Basophils Percent Auto 0.9 % (0-2); Eosinophils Absolute Auto 200 /uL (0-450); Eosinophils Percent Auto 3.8 % (2-4); Hematocrit 42.7 % (36-46); Hemoglobin 14.3 g/dL (12.0-16.0); Lymphocytes Absolute Auto 1500 /uL (1100-4500); Lymphocytes Percent Auto 25.2 % (25-40); Mean Corpuscular HGB Conc 33.6 % (30-36); Mean Corpuscular Hemoglobin 31.4 PG (26-34); Mean Corpuscular Volume 93.4 fL (80-100); Monocytes Absolute Auto 400 /uL (0-900); Monocytes Percent Auto 6.4 % (3-14); Neutrophils Absolute Auto 3900 /uL (1500-7000); Neutrophils Percent Auto 63.7 % (50-75); Platelet Count 243 X10^3/uL (150-400); Red Blood Cell Count 4.57 X10^6/uL (4.0-5.2); Red Cell Distribution Width 13.5 % (11.6-14.8); White Blood Cell Count 6.1 X10^3/uL (4.5-11.0)
[2022-09-06 13:07] LABS: Alanine Aminotransferase 19 IU/L (<35); Albumin 4.3 g/dL (3.5-5.0); Albumin Globulin Ratio 1.4 (1.0-2.8); Alkaline Phosphatase 86 U/L (38-126); Aspartate Aminotransferase 28 IU/L (14-36); BUN Creatinine Ratio 21.9 (6-22); Bilirubin Total 0.5 mg/dL (0.2-1.3); Blood Urea Nitrogen 16 mg/dL (7-17); Calcium 9.2 mg/dL (8.4-10.2); Carbon Dioxide 30 mmol/L (22-32); Chloride 102 mmol/L (98-107); Cholesterol 156 mg/dL (140-199); Estimated Glomerular Filt Rate > 60 mL/min (>60); Globulin 3.1 g/dL (1.7-4.1); Glucose 93 mg/dL (80-110); HDL Cholesterol 61 mg/dL (40-60); HEMOLYSIS < 15 (0-50); LDL Cholesterol Calculated 70 mg/dL (<100); Potassium 4.4 mmol/L (3.4-5.1); Sodium 140 mmol/L (137-145); Total Protein 7.4 g/dL (6.3-8.2); Triglycerides 125 mg/dL (35-150)
[2022-09-06 13:21] LABS: Free T3, Triiodothyronine Free 2.89 pg/mL (2.77-5.27); Free T4, Direct Thyroxine 1.11 ng/dL (0.78-2.19)
[2022-09-06 13:34] LABS: Thyroid Stimulating Hormone 2.61 uIU/mL (0.47-4.68)
== END ==
PROVIDERS: PCP Nurse Practitioner; Referring Provider Nurse Practitioner; Visit Provider Nurse Practitioner
DX: R53.83 Other fatigue (principal); E78.2 Mixed hyperlipidemia; F41.8 Other specified anxiety disorders
CPT/HCPCS: 36415; 80053; 80061; 84439; 84443; 84481; 85025

== ENCOUNTER 2022-09-11 09:49 | Day surgery (SDC) | payer OTHER, SELFPAY ==
[2022-09-11 10:05] VITALS: BP 116/83; PULSE 96; RESP 18; TEMP 36.1; O2SAT 98; BMI 20.8
[2022-09-11] MEDS: LACTATED RINGERS 1,000 ML 200 ML IV (10:10)
--- NOTE | 2022-09-11 11:00 | PM.HP.1 ---
History of Present Illness History of Present Illness Date Patient Seen: 09/11/22 Time Patient Seen: 11:00 Chief complaint: SDC Narrative: The patient presents for colorectal screening. Colonoscopy several years ago demonstrated benign polyps.. No personal or family history of colon cancer. On further history denies any recent gastrointestinal symptoms. No nausea, vomiting, abdominal pain, loss of appetite, unexplained weight loss, change in bowel habits, or blood per rectum. Patient History Medical History Altered bowel habits Depression with anxiety GERD (gastroesophageal reflux disease) History of UTI Hx of small bowel obstruction Lower urinary tract symptoms (LUTS) Non-compliance Obstructive defect of renal pelvis Postmenopausal atrophic vaginitis Right kidney stone Right nephrolithiasis Surgical History H/O: hysterectomy History of laparoscopic cholecystectomy Family & Social History Family History Father Hearing impairment UTI (urinary tract infection) Kidney stones Social History: household members family Tobacco & Substance use: Tobacco type cigarettes Smoking Status Current every day smoker Smoking packs per day 0.5 alcohol intake current alcohol intake frequency holiday/special occasion Substance Use Type does not use Meds Home Medications and Allergies Home Medications Medication Instructions Recorded Confirmed Type calcium carbonate 200 mg calcium 200 mg PO QID PRN Constipation 02/01/21 09/11/22 History (500 mg) chewable tablet (Tums) docusate sodium 100 mg capsule 100 mg PO BID PRN hard stools #60 07/27/21 09/11/22 Rx (Colace) caps magnesium citrate 150 ml PO DAILY PRN constipation 07/27/21 09/11/22 Rx #150 mL mineral oil (Fleet Mineral Oil 118 ml MD DAILY PRN constipation 07/27/21 09/11/22 Rx enema) #133 mL omeprazole 20 mg capsule,delayed 20 mg PO DAILY #30 caps 02/14/22 09/11/22 Rx release atorvastatin 20 mg tablet 20 mg PO QPM #90 tabs 06/27/22 09/11/22 Rx paroxetine HCl 20 mg tablet 20 mg PO DAILY #90 tabs 06/27/22 09/11/22 Rx Allergies Allergy/AdvReac Type Severity Reaction Status Date / Time penicillin G [PENICILLIN G] Allergy Mild RASH A Verified 09/11/22 10:02 CHILD cephalexin [CEPHALEXIN] Allergy Unknown Verified 09/11/22 10:02 clindamycin [CLINDAMYCIN] Allergy Unknown tongue Verified 09/11/22 10:02 spasms tamsulosin AdvReac Intermediate puffy eyes Verified 09/11/22 10:02 Exam Vital Signs (past 8 hours): - 09/11/22 10:05 Temperature 97 F L Pulse Rate 96 H Respiratory Rate 18 Blood Pressure 116/83 Pulse Oximetry 98 Oxygen Delivery Method Room Air Oxygen Delivery Method Room Air Narrative Exam Narrative: General adult woman alert oriented no acute distress Assessment & Plan Assessment & Plan narrative: The patient requires colorectal screening and colonoscopy is recommended. Technical details were discussed. Risks, benefits, alternatives explained. Risks including but not limited to myocardial infarction, aspiration, bleeding, pain, missed lesion, incomplete examination, need for further radiographic studies, colonic perforation, and need for major abdominal surgery were discussed. All questions were answered to their satisfaction, and they are in agreement with this plan.
[2022-09-11 11:20] VITALS: BP 102/68; PULSE 76; RESP 16; TEMP 36.7; O2SAT 98
--- NOTE | 2022-09-11 11:20 | PM.OP.COLON ---
Operative Date/Time/Diagnoses Date of procedure: 09/11/22 Time of procedure: 11:20 Pre-op diagnosis: Personal history of colonic polyps Post-op diagnosis: same Procedure & Clinicians Study performed: Aborted colonoscopy Same procedure as scheduled: Yes Indications: Personal history of colonic polyps Surgeon: Ayden Aguila Procedure Notes Procedure in detail: The history and physical was performed/updated and the patient is ASA class is 2. The procedure was discussed in detail with the patient. Potential risks complications including infection, bleeding, missed diagnosis, perforation, need for surgery, and were explained. Their questions were answered and informed consent was obtained. Patient was brought to the procedure room and placed standard monitoring equipment. The patient's vital signs were monitored continuously throughout the entire procedure. Prior to starting time-out was performed. The patient was placed in the left lateral recumbent position. Procedural sedation was administered by anesthesia. Examination began with a thorough inspection of the perianal area there was no evidence of fissures, fistulae, external hemorrhoids or cutaneous malignancy. The colonoscopy scope was then placed into the anal canal and was advanced forward. Within the sigmoid colon at approximately 20 cm from the anal verge no further progress could be made. Despite multiple attempts of repositioning and external pressure I could not safely advance the scope forward under direct visualization. I suspect this is a result of her intra-abdominal adhesions as result of several prior abdominal surgeries. The procedure was therefore aborted given the risk perforation with further attempts. She will need a barium enema as an alternative. Impression: Incomplete colonoscopy Post-procedure Plan for aftercare: Barium enema Disposition: same day surgery
[2022-09-11 11:25] VITALS: BP 91/63; PULSE 75; RESP 16; O2SAT 96
[2022-09-11 11:29] VITALS: BP 103/67; PULSE 79; RESP 18; O2SAT 97
[2022-09-11 11:39] VITALS: BP 104/66; PULSE 75; RESP 16; O2SAT 98
== END 2022-09-11 12:01 | disposition home or self-care (01) ==
PROVIDERS: PCP Nurse Practitioner; Referring Provider Surgery; Visit Provider Surgery
PROC: 0DJD8ZZ Inspection of Lower Intestinal Tract, Via Natural or Artificial Opening Endoscopic (ICD-10-PCS; CPT 45378; principal; 2022-09-11 10:45)
DX: Z12.11 Encounter for screening for malignant neoplasm of colon (principal); Z86.010 Personal history of colon polyps; Z53.09 Procedure and treatment not carried out because of other contraindication
CPT/HCPCS: G0105

== ENCOUNTER → 2022-10-10 11:10 | Outpatient (CLI) | payer OTHER, SELFPAY ==
[2022-10-10 11:55] LABS: Appearance Urine UA CLEAR; Bilirubin Urine UA NEGATIVE (NEGATIVE); Color Urine UA YELLOW; Glucose Urine UA NEGATIVE (Negative); Ketones Urine UA NEGATIVE (NEGATIVE); Leukocyte Esterase Urine UA NEGATIVE (NEGATIVE); Nitrite Urine UA NEGATIVE (Negative); Occult Blood Urine UA 1+ (Negative); Protein Urine UA NEGATIVE (Negative); Specific Gravity Urine UA 1.015 (1.000-1.035); Urobilinogen Urine UA 0.2 E.U./dL (0.2)
[2022-10-10 12:13] LABS: RBC Urine 5-10/HPF (0-5/HPF); WBC Urine 1-5/HPF (0-5/HPF)
[2022-10-10 12:14] LABS: Bacteria Urine Few (2-10); Culture Indicated Urine Cult Not Indicated; Squamous Epithelial Cell Urine 1-5 /HPF (0-5/HPF)
== END ==
PROVIDERS: PCP Nurse Practitioner; Referring Provider Nurse Practitioner; Visit Provider Nurse Practitioner
DX: R31.9 Hematuria, unspecified (principal)
CPT/HCPCS: 81001

== ENCOUNTER → 2022-10-12 08:20 | Outpatient (CLI) | payer OTHER, SELFPAY ==
--- NOTE | 2022-10-12 08:21 | DI.RAD.S_ITS ---
PROCEDURE: FL BARIUM ENEMA INDICATIONS: STRICTURE OF COLON COMPARISON: None. 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 No suspicious abdominal calcifications. Visualized solid organ contours appear normal in size. No suspicious bony lesions. Colon: There is adequate opacification of the entire colon. No strictures or extrinsic mass effects are identified. No colonic fistulae or perforations. Colon caliber appears normal. IMPRESSION: No obstructing rectal mass. Dictated by: Barrera Smith M.D. on 10/12/2022 at 11:18 Approved by: Barrera Smith M.D. on 10/12/2022 at 11:18
== END ==
PROVIDERS: PCP Nurse Practitioner; Referring Provider Surgery; Visit Provider Surgery
DX: K56.699 Other intestinal obstruction unspecified as to partial versus complete obstruction (principal)
CPT/HCPCS: 74270

== ENCOUNTER → 2022-10-29 10:02 | Outpatient (CLI) | payer OTHER, SELFPAY ==
--- NOTE | 2022-10-29 10:08 | DI.CT.S_ITS ---
PROCEDURE: CT IVP A/P W/WO INDICATIONS: hematuria. cigarrette smoker TECHNIQUE: Optional 5 mm thick noncontrast images acquired from the diaphragm to the symphysis pubis. After the administration of intravenous contrast, 5 mm thick images acquired from the diaphragm to the symphysis pubis after a 10-minute delay. 2 mm thick coronal and sagittal reformats were then performed of the kidneys and ureters. For radiation dose reduction, the following was used: automated exposure control, adjustment of mA and/or kV according to patient size. COMPARISON: None. FINDINGS: Image quality: Excellent. Lung bases: Lung bases are clear. Heart size is normal. Descending thoracic aorta is aneurysmal measuring 3.9 cm in diameter and demonstrates calcified and noncalcified plaque. Urinary system: Precontrast images demonstrate mild right hydronephrosis. There is layering calcification dependently in the mid and lower pole calices. This has Hounsfield units of 980. Cortical cyst in the posterior lower pole right kidney. The left kidney is normal morphology without intrinsic calcifications. No visible ureteral or bladder calcifications. Postcontrast, kidneys demonstrate symmetric nephrograms and opacification of the calices. There is prominence of the right extrarenal pelvis. Ureteropelvic junction is not seen. The right ureter is not opacified. No hydroureter. Only the proximal most portion of the left ureter is opacified with contrast. Urinary bladder is decompressed and there are no definite post filling abnormalities. Other solid organs: Liver is normal in size and enhancement. 1.9 cm bilobed liver cyst. No other liver lesions. Gallbladder is surgically absent . Extrahepatic common duct is prominent, expected post cholecystectomy. No intrahepatic biliary dilatation. Pancreas enhances normally. Spleen is normal in size and enhancement. No adrenal nodules. Peritoneum and bowel: Bowel loops demonstrate normal wall thickness and caliber. No free fluid or air. Nodes and vessels: No retroperitoneal or mesenteric adenopathy by size criteria. Aorta and inferior vena cava are normal in size. Mild abdominal aortic atherosclerotic calcification. Abdominal wall: No ventral hernias. Pelvis: No pathologic free pelvic fluid. No inguinal hernias or adenopathy. Absent uterus. Bones: No suspicious bone lesions. Healed left inferior pubic ramus fracture. Diffuse demineralization. No vertebral body fractures. IMPRESSION: 1. Mild right hydronephrosis and renal pelvis dilatation. Given nonvisualization of the right ureter, this may indicate likely UPJ obstruction. A discrete ureteral calcification is not identified. 2. There are layering calcifications in the mid and lower pole right renal calices suggesting urinary stasis. 3. Aneurysmal distal descending thoracic aorta. Dictated by: Cat Hernandez M.D. on 10/29/2022 at 12:25 Approved by: Cat Hernandez M.D. on 10/29/2022 at 13:50
[2022-10-29 10:43] LABS: Estimated Glomerular Filt Rate > 60 mL/min (>60)
== END ==
PROVIDERS: Radiology Diagnostic Radiology; PCP Nurse Practitioner; Referring Provider Specialist; Visit Provider Specialist
DX: I71.23 Aneurysm of the descending thoracic aorta, without rupture (principal); R31.0 Gross hematuria; K76.89 Other specified diseases of liver; N13.30 Unspecified hydronephrosis; Z90.49 Acquired absence of other specified parts of digestive tract
CPT/HCPCS: 36415; 74178; 82565; Q9967

== ENCOUNTER → 2022-11-06 09:59 | Outpatient (CLI) | payer OTHER, SELFPAY | PROVIDERS: PCP Nurse Practitioner; Visit Provider Specialist | DX: R31.0 Gross hematuria (principal) | CPT/HCPCS: 52000; 81002; 87086; 99215 ==

== ENCOUNTER → 2022-11-15 13:45 | Outpatient (CLI) | payer OTHER, SELFPAY ==
--- NOTE | 2022-11-15 13:45 | DI.NM.S_ITS ---
PROCEDURE: NM RENAL FUNCTION W LASIX RADIOPHARMACEUTICAL: 10 mCi Tc-99m MAG3 IV and 40 mg furosemide IV. INDICATIONS: hematuria. kidney stones TECHNIQUE: The patient was hydrated orally before the examination was begun. After intravenous administration of Tc-99m MAG3, posterior abdominal radionuclide angiogram and sequential (1 minute each frame) renal images were obtained. A time-activity curve for each kidney was generated and analyzed. To evaluate for obstruction, the patient was given 40 mg furosemide via slow intravenous injection after the start of the examination. Sequential images were obtained for up to an additional 20 minutes. COMPARISON: [facility], CT, CT ABDOMEN PELVIS W CON, 10/24/2017, 16:58. [facility], CT, CT IVP A/P W/WO, 10/29/2022, 11:04. FINDINGS: Perfusion: There is normal vascular flow to both kidneys. Morphology: Right kidney is ptotic. Both kidneys are normal in size and shape. There is dilated right renal collecting system. The left ureter and bladder fill with tracer, and appear normal. Right ureter is not visualized. Function: Left kidney demonstrates normal cortical tracer uptake and excretion. Right Kidney demonstrate decreased and delayed cortical uptake and creation compared to the left kidney. The right kidney contributes 29.1% of total renal function. The left kidney contributes 70.9% of total renal function. Lasix stimulation: After diuretic administration, there is borderline delayed clearance of tracer activity from the right renal collecting system. The half-time of emptying of tracer activity from the right pelvicaliceal system is 12 minutes. There is prompt clearance of tracer activity from the renal collecting systems by the left kidney. The half-time of emptying from the left pelvicaliceal system is 4.7 minutes. Normal emptying half-times are less than 10 minutes; borderline ranges are from 10 to 20 minutes. IMPRESSION: 1. Decreased right renal function. The right renal collecting system is dilated and borderline delayed tracer clearance from the right renal collecting system, suggesting mild chronic right UVJ obstruction. 2. Normal left renal obstruction without left renal obstruction. 3. Right kidney contributes 29.1% of total renal function; left kidney contributes 70.9% of total renal function. Dictated by: Beth Rush M.D. on 11/15/2022 at 20:50 Approved by: Beth Rush M.D. on 11/16/2022 at 17:20
== END ==
PROVIDERS: PCP Nurse Practitioner; Referring Provider Specialist; Visit Provider Specialist
DX: N20.0 Calculus of kidney (principal); R31.0 Gross hematuria; N28.89 Other specified disorders of kidney and ureter
CPT/HCPCS: 78708; A9562

== ENCOUNTER → 2022-12-31 10:01 | Outpatient (CLI) | payer OTHER, SELFPAY ==
[2022-12-31 11:06] LABS: BUN Creatinine Ratio 25.8 (6-22); Blood Urea Nitrogen 17 mg/dL (7-17); Carbon Dioxide 29 mmol/L (22-32); Chloride 102 mmol/L (98-107); Estimated Glomerular Filt Rate > 60 mL/min (>60); Glucose 90 mg/dL (80-110); HEMOLYSIS < 15 (0-50); Potassium 4.2 mmol/L (3.4-5.1); Sodium 137 mmol/L (137-145)
== END ==
PROVIDERS: PCP Nurse Practitioner; Referring Provider Nurse Practitioner; Visit Provider Nurse Practitioner
DX: Z01.812 Encounter for preprocedural laboratory examination (principal)
CPT/HCPCS: 36415; 80048

== ENCOUNTER → 2023-01-01 09:44 | Outpatient (CLI) | payer OTHER, SELFPAY ==
--- NOTE | 2023-01-01 09:46 | DI.CT.S_ITS ---
PROCEDURE: CT CHEST W CON INDICATIONS: weight loss, tobacco use disorder TECHNIQUE: After the administration of intravenous contrast, 5 mm thick sections acquired from the pulmonary apices to the posterior costophrenic angles. 1 mm axial lung, 5 mm thick coronal and sagittal reformats and 7 mm axial MIP were acquired. For radiation dose reduction, the following was used: automated exposure control, adjustment of mA and/or kV according to patient size. COMPARISON: None. FINDINGS: Image quality: Good Lungs and pleura: Suspected left Bochdalek's hernia. Scattered scarring/atelectasis. A nodular region is seen measuring 6-7 mm in the periphery of the right upper lobe (3/59). Other smaller micro nodules are present as well. Moderate emphysematous changes. Mediastinum, heart, and esophagus: Thoracic aortic aneurysm, partially thrombosed, measures up to 4 cm in the descending aorta. Small hiatal hernia and mild distal esophageal wall thickening. There are coronary calcifications. No pathologic lymph nodes by size criteria. Chest wall and thyroid: Thyroid is unremarkable. Chest wall appears unremarkable. The right chest wall is partially out of the field of view. Upper abdomen: No gross abnormality on these images, upper abdomen is only partially visualized. Suspected central liver cyst is present. Bones: No acute or suspicious osseous finding. IMPRESSION: Moderate emphysematous changes. A nodular region in the right upper lobe is seen (3/59), in the periphery. Other areas of suspected scarring/atelectasis is present. Consider follow-up imaging in 6-12 months, given patient's presumed risk factors. Alternatively, and enrollment in low-dose lung cancer screening is also reasonable. No acute thoracic abnormality or definite disseminated metastatic disease. Descending thoracic aortic aneurysm. Other findings as above. Dictated by: Misael Gillespie M.D. on 01/01/2023 at 11:06 Approved by: Misael Gillespie M.D. on 01/01/2023 at 11:11
--- NOTE | 2023-01-01 09:46 | DI.MG.S_ITS ---
BILATERAL DIGITAL SCREENING MAMMOGRAM 3D/2D WITH CAD: 01/01/2023 CLINICAL: Routine screening. Comparison is made to exam dated: 09/30/2018 mammogram - [facility]. Both breasts are heterogeneously dense, which may obscure small masses (category c / 51-75% glandular tissue). Current study was also evaluated with a Computer Aided Detection (CAD) system. There are benign calcifications in the right breast. There also are benign post operative findings in the left breast. No significant masses, calcifications, or other findings are seen in either breast. There has been no significant interval change. IMPRESSION: BENIGN There is no mammographic evidence of malignancy. A 1 year screening mammogram is recommended. Based on the Tyrer Cuzick model (a risk assessment model) the patient's lifetime risk is 3.5% and her 10 year risk is 2.9%. According to the ACR, ACS, and NCCN guidelines, an annual breast MRI exam along with mammogram is recommended if the patient's lifetime risk is 20% or greater. This exam was interpreted at Station ID: [id number]. NOTE: For mammograms, a report in lay terms will be sent to the patient. Approximately 15% of breast malignancies will not be visualized mammographically. In the management of a palpable breast mass, a negative mammogram must not discourage biopsy of a clinically suspicious lesion. Electronically Signed By: Irene naylor/olman:01/01/2023 13:05:08 letter sent: Normal Exam ACR BI-RADS Category 2: Benign Finding(s) 3342F
== END ==
PROVIDERS: PCP Nurse Practitioner; Referring Provider Nurse Practitioner; Visit Provider Nurse Practitioner
DX: Z12.31 Encounter for screening mammogram for malignant neoplasm of breast (principal); I71.23 Aneurysm of the descending thoracic aorta, without rupture; R63.4 Abnormal weight loss; K44.9 Diaphragmatic hernia without obstruction or gangrene; I25.10 Atherosclerotic heart disease of native coronary artery without angina pectoris; F17.200 Nicotine dependence, unspecified, uncomplicated
CPT/HCPCS: 71260; 77063; 77067

== ENCOUNTER 2023-05-03 12:41 | Day surgery (SDC) | payer OTHER, SELFPAY ==
--- NOTE | 2023-05-03 | PATH_ITS ---
[facility] Accession Number: [id number] No. of containers..01 Tissue . 01 Material submitted: . esophagus, E-G Junction - GE JUNCTION BIOPSY . 01 Diagnosis: Gastroesophageal Junction, Biopsy: Squamous mucosa with mild reactive features of reflux esophagitis. No glandular mucosa present for evaluation. Negative for dysplasia or malignancy. [facility] 05/15/2023 1524 Local . 01 Electronically signed: . Arnaldo Salmeron MD, PhD, Pathologist NPI- [id number] . 01 Gross description: . GE JUNCTION BIOPSY: Received in formalin is 3 fragment(s) of franklin, soft tissue measuring 0.3 x 0.2 x 0.1 cm to 0.2 x 0.2 x 0.1 cm submitted entirely in 1 cassette(s) /AAY 05/07/2023 0138 Local . 01 Pathologist provided ICD-10: K21.9 . 01 CPT . 278750 Specimen Comment: A courtesy copy of this report has been sent to [phone] Performed at: 01 [facility] [address] [place] [address], [place], [place] [id number] MD Sabas Longo MD Phone: [phone]
[2023-05-03] MEDS: LACTATED RINGERS 1,000 ML 42 ML IV (12:58)
[2023-05-03 13:07] VITALS: BMI 20.1
[2023-05-03 13:15] VITALS: BP 119/76; PULSE 75; RESP 16; TEMP 36.2; O2SAT 99
--- NOTE | 2023-05-03 13:28 | PM.HP.1 ---
History of Present Illness History of Present Illness Date Patient Seen: 05/03/23 Time Patient Seen: 13:28 Chief complaint: SDC Narrative: 72-year-old woman with esophageal dysphagia and abnormal thickening of the distal esophagus on imaging here for diagnostic EGD. Please refer to the H and P from January 2023 for further detail. No significant interval changes in health. [facility] Medical History Esophageal thickening Bochdalek hernia Hiatal hernia Pulmonary emphysema Pulmonary nodules/lesions, multiple Abdominal aortic aneurysm (AAA) 3.0 cm to 5.0 cm in diameter in female Tobacco use disorder Postmenopausal atrophic vaginitis Right nephrolithiasis Gross hematuria Altered bowel habits GERD (gastroesophageal reflux disease) Lower urinary tract symptoms (LUTS) Postmenopausal atrophic vaginitis Right nephrolithiasis History of UTI Right kidney stone Obstructive defect of renal pelvis Non-compliance Depression with anxiety Hx of small bowel obstruction Surgical History History of laparoscopic cholecystectomy H/O: hysterectomy Family History Father Hearing impairment UTI (urinary tract infection) Kidney stones Social History household members: family Smoking Status: Current every day smoker quit status: considering quitting second hand exposure: No alcohol intake: current substance use type: does not use Meds Home Medications and Allergies Home Medications Medication Instructions Recorded Confirmed Type atorvastatin 20 mg tablet 20 mg PO QPM #90 tabs 10/02/22 05/02/23 Rx paroxetine HCl 30 mg tablet 30 mg PO DAILY #90 tabs 12/27/22 05/02/23 Rx albuterol sulfate 90 mcg/actuation 2 puff inhalation Q4-6H PRN 01/02/23 05/02/23 Rx aerosol inhaler shortness of breath or wheezing #6.7 grams Allergies Allergy/AdvReac Type Severity Reaction Status Date / Time penicillin G [PENICILLIN G] Allergy Mild RASH A Verified 05/03/23 13:06 CHILD cephalexin [CEPHALEXIN] Allergy Unknown Verified 05/03/23 13:06 clindamycin [CLINDAMYCIN] Allergy Unknown tongue Verified 05/03/23 13:06 spasms tamsulosin AdvReac Intermediate puffy eyes Verified 05/03/23 13:06 Exam Vital Signs (past 8 hours): - 05/03/23 13:15 Temperature 97.2 F L Pulse Rate 75 Respiratory Rate 16 Blood Pressure 119/76 Pulse Oximetry 99 Oxygen Delivery Method Room Air Oxygen Delivery Method Room Air Narrative Exam Narrative: General adult man alert oriented no acute distress Chest nonlabored respiration Extremities warm well perfused Assessment & Plan Assessment and plan (1) Esophageal thickening: Status: Acute Assessment & Plan narrative: 72-year-old woman with esophageal dysphagia and esophageal thickening on imaging here for diagnostic esophagoduodenoscopy possible dilation. Overview of the procedure discussed. Procedural risks including hemorrhage, esophageal injury were discussed. Questions have been answered she is in agreement with this plan she provides a written and verbal consent to proceed.
[2023-05-03 13:55] VITALS: BP 104/68; PULSE 81; RESP 15; TEMP 36.1; O2SAT 93
--- NOTE | 2023-05-03 13:59 | PM.OP.EGD ---
Operative Date/Time/Diagnoses Date of procedure: 05/03/23 Time of procedure: 13:59 Pre-op diagnosis: Esophageal dysphagia Esophageal thickening Procedure & Clinicians Study performed: Diagnostic esophagoduodenoscopy Same procedure as scheduled: Yes Indications: 72-year-old woman long-term smoker and chronic reflux here with esophageal dysphagia and abnormal thickening of the distal esophagus for diagnostic esophagoduodenoscopy. Surgeon: Ayden Aguila Procedure Notes Procedure in detail: The history and physical was performed/updated and the patient is ASA class is 2. The procedure was discussed in detail with the patient. Potential risks complications including infection, bleeding, missed diagnosis, perforation, need for surgery, and were explained. Their questions were answered and informed consent was obtained. Patient placed in left lateral decubitus position. Time out was performed. Procedural sedation was administered by Anesthesia. A bite block was placed. the scope was inserted into the mouth and advanced through the esophagus and into the stomach. The pylorus was intubated and the duodenum was examined to the 2nd portion. The scope was then withdrawn into the stomach and was retroflexed. The stomach was decompressed and scope was withdrawn slowly through the esophagus. FINDINGS -Abnormality in the distal esophagus at the level of the GE junction. 1 cm lesion with a raised rolled edge extremely friable biopsied in multiple positions using forceps. GE junction is at 35 cm from the incisors -No esophageal stenosis The patient tolerated the procedure well and will be discharged when they meet criteria. Specimen(s): other (GE junction lesion) Impression: Abnormal esophageal lesion. Concern for possible esophageal malignancy Post-procedure Disposition: same day surgery
[2023-05-03 14:00] VITALS: BP 105/67; PULSE 78; RESP 20; O2SAT 97
[2023-05-03 14:05] VITALS: BP 104/74; PULSE 73; RESP 17; TEMP 36.6; O2SAT 97
--- NOTE | 2023-05-03 14:56 | SUR.PHASEII ---
1440-Dr. Aguila at bedside, discussed results of EGD and patient to await pathology results.
--- NOTE | 2023-05-03 15:01 | SUR.PHASEII ---
1500-patient discharged in stable condition; pt called and voicemail left to remind of prescription for omeprazole that was sent to pharmacy of choice.
== END 2023-05-03 14:55 | disposition home or self-care (01) ==
PROVIDERS: PCP Nurse Practitioner; Referring Provider Surgery; Visit Provider Surgery
PROC: 0DJ08ZZ Inspection of Upper Intestinal Tract, Via Natural or Artificial Opening Endoscopic (ICD-10-PCS; CPT 43235; principal; 2023-05-03 13:45)
DX: R13.10 Dysphagia, unspecified (principal); F17.210 Nicotine dependence, cigarettes, uncomplicated; K21.9 Gastro-esophageal reflux disease without esophagitis
CPT/HCPCS: 43239

== ENCOUNTER → 2023-07-15 11:50 | Outpatient (CLI) | payer OTHER, SELFPAY ==
[2023-07-15 12:18] LABS: Estimated Glomerular Filt Rate > 60 mL/min (>60)
== END ==
PROVIDERS: PCP Nurse Practitioner; Referring Provider Radiology Diagnostic Radiology; Visit Provider Radiology Diagnostic Radiology
DX: R63.4 Abnormal weight loss (principal)
CPT/HCPCS: 36415; 82565

== ENCOUNTER → 2023-07-16 13:00 | Outpatient (CLI) | payer OTHER, SELFPAY ==
--- NOTE | 2023-07-16 14:29 | DI.CT.S_ITS ---
PROCEDURE: CT CHEST ABD PEL W CON INDICATIONS: chest, abd pain, weight loss TECHNIQUE: After the administration of intravenous contrast, 5 mm thick sections acquired from the lung apices to the symphysis. 5 mm coronal and sagittal reformats were performed, with additional 7 mm MIP reformats through the lungs. For radiation dose reduction, the following was used: automated exposure control, adjustment of mA and/or kV according to patient size. COMPARISON: [facility], CT, CT IVP A/P W/WO, 10/29/2022, 11:04. [facility], CT, CT CHEST W CON, 01/01/2023, 10:08. FINDINGS: Image quality: Diagnostic. CHEST: Lower Neck: No enlarged lymph nodes. Thyroid: No thyroid nodules which require sonographic follow up, per consensus guidelines. Axillae: No enlarged lymph nodes. Chest Wall: Unremarkable. Lungs and Pleura: No pneumothorax or pleural effusions. Stable appearance of moderate pulmonary emphysematous changes. Scattered scarring and atelectasis not significantly changed. Stable 6 mm nodular density in the subpleural region of the right upper lobe (73/series 3). No suspicious or enlarging pulmonary nodules. No pneumothorax or pleural effusion. Heart: Heart size is normal. No pericardial effusion. Coronary atherosclerotic vascular calcifications are noted. Thoracic Vessels: Pulmonary arteries are normal in size. Atherosclerotic calcifications of the aortic arch are present. Redemonstration of distal, descending thoracic aortic aneurysm measuring 4.2 x 3.4 cm in axial cross-sectional dimension (51/series 2). This is not significantly changed when measured at a similar level. Intramural thrombus as before. No periaortic stranding. Mediastinum and Linda: No enlarged lymph nodes. Esophagus: No wall thickening. No hiatal hernia. ABDOMEN: Liver: No solid mass. Stable appearance of 1.9 cm bilobed hepatic cyst. Gallbladder: Status post cholecystectomy. Biliary ducts: No biliary dilation. Pancreas: No ductal dilation. Spleen: Size is within normal limits. Adrenal Glands: No adrenal nodules. Kidneys and Ureters: Stable appearance of mild right hydronephrosis with prominent extrarenal pelvis. The right ureter is otherwise normal course and caliber. No visible ureteral or bladder calcifications. Stable layering calcifications in the right kidney. No significant perinephric stranding. No left hydronephrosis. No solid mass. No complex renal cystic lesion which requires follow up. Stomach and Bowel: Normal colonic caliber, without significant wall thickening. Mild wall thickening of the rectum likely related to incomplete distension. Peritoneum: No abnormal intraperitoneal fluid. No free air. Ventral Wall: No hernia. Abdominal Nodes: No retroperitoneal or mesenteric adenopathy by size criteria. Vessels: Scattered atherosclerotic calcifications of the abdominal aorta and iliac vessels without aneurysmal dilatation. The inferior vena cava appears patent. PELVIS: Pelvic Organs: Status post hysterectomy. Bladder: Urinary bladder thickness appears normal for degree of distention. No perivesicular inflammatory stranding. Pelvic Nodes: No enlarged lymph nodes. Miscellaneous: No inguinal hernias are seen. Bones: No acute vertebral body compression fractures. Multilevel spondylitic changes throughout the imaged spine. No suspicious osseous lesions. IMPRESSION: 1. Moderate upper lobe predominant pulmonary emphysematous changes. 2. Stable 6 mm peripheral right upper lobe nodular density. Recommend follow-up chest CT in 6-12 months document continued stability. Otherwise, no acute cardiopulmonary abnormalities or focal airspace disease identified. 3. Stable appearance of distal descending thoracic aortic aneurysm measuring up to 4.2 cm. 4. Stable appearance of mild right hydronephrosis and prominent extrarenal pelvis. The right ureter is otherwise normal in course and caliber. Findings again may represent UPJ obstruction. No discrete ureteral calcification or obstructing mass. 5. Moderate atherosclerotic vascular calcifications. 6. Mild thickening of the rectum which may be related to incomplete distension. Recommend clinical correlation. Other chronic findings as above. Dictated by: Jayden Vidales M.D. on 07/17/2023 at 21:29 Approved by: Jayden Vidales M.D. on 07/17/2023 at 22:12
== END ==
LOC: CT 13:00
PROVIDERS: PCP Nurse Practitioner; Referring Provider Nurse Practitioner; Visit Provider Nurse Practitioner
DX: I71.23 Aneurysm of the descending thoracic aorta, without rupture (principal); R07.9 Chest pain, unspecified; R10.9 Unspecified abdominal pain; R63.4 Abnormal weight loss; R91.8 Other nonspecific abnormal finding of lung field; K56.699 Other intestinal obstruction unspecified as to partial versus complete obstruction; K44.9 Diaphragmatic hernia without obstruction or gangrene; J43.9 Emphysema, unspecified; K76.89 Other specified diseases of liver; Z90.49 Acquired absence of other specified parts of digestive tract; N13.30 Unspecified hydronephrosis; N20.0 Calculus of kidney; I25.10 Atherosclerotic heart disease of native coronary artery without angina pectoris; Z87.891 Personal history of nicotine dependence
CPT/HCPCS: 71260; 74177

== ENCOUNTER → 2023-09-02 14:08 | Outpatient (CLI) | payer OTHER, SELFPAY ==
--- NOTE | 2023-09-02 14:10 | DI.US.S_ITS ---
PROCEDURE: US PELVIC COMPLETE INDICATIONS: lower abd pain TECHNIQUE: Real-time scanning was performed of the pelvic organs, with image documentation. Additional endovaginal scanning was necessary due to incomplete visualization of the adnexal and endometrial structures by transabdominal scanning. COMPARISON: None. FINDINGS: Uterus: Surgically absent. Ovaries: Surgically absent. Adnexal structures are within normal limits. Other: No pathologic free abdominal or pelvic fluid. IMPRESSION: Hysterectomy with bilateral oophorectomy. We strive to produce accurate, complete, and clear reports of imaging services. To assist us in improving patient care, this report was composed using standard report templates and voice recognition software. Therefore, it may contain abnormal punctuation, insertions and/or omissions. Occasional wrong-word or sound-alike substitutions may occur. Though we review the report and make efforts to correct it, we do recommend that the report be read carefully in proper context to recognize any text inaccuracies. Dictated by: Chiara Santos M.D. on 09/02/2023 at 16:30 Approved by: Chiara Santos M.D. on 09/02/2023 at 16:31
--- NOTE | 2023-09-02 14:10 | DI.US.S_ITS ---
PROCEDURE: US ABDOMEN COMPLETE INDICATIONS: abdominal distention and pain TECHNIQUE: Real-time scanning was performed of the abdominal and retroperitoneal organs, with image documentation. COMPARISON: [facility], CT, CT CHEST ABD PEL W CON, 07/16/2023, 14:33. FINDINGS: Liver: The liver demonstrates diffusely increased echotexture without focal abnormalities consistent with chronic hepatocellular disease/hepatic steatosis. There is a 2.2 x 1.5 x 1.7 cm right hepatic lobe cyst. Gallbladder: Status post cholecystectomy. Biliary ducts: Intrahepatic bile ducts are non-dilated. Extrahepatic bile duct caliber measures 9 mm. Normal is 6-7 mm or less in diameter, or 10 mm or less post-cholecystectomy. Pancreas: Visualized portions of the pancreas are sonographically normal. Spleen: Spleen is normal in size and homogeneous in echotexture. Kidneys: Kidneys are normal in size and echotexture. Right kidney measures 10.1 cm long; left kidney measures 10.7 cm long. No hydronephrosis or nephrolithiasis. No solid masses. Right extrarenal pelvis identified. Aorta: Visualized aorta is normal in caliber at less than 3 cm. Mild focal dilatation of the distal abdominal aorta measuring up to 2.3 cm versus 1.6 cm in diameter in the mid abdominal aorta. Iliacs: Proximal common iliac arteries are normal in caliber at less than 2.5 cm. IVC: Intrahepatic inferior vena cava is patent. Miscellaneous: No free abdominal fluid. IMPRESSION: Abdomen without acute sonographic abnormalities. Status post cholecystectomy with prominence of the common bile duct likely related to post cholecystectomy dilatation. Persistent right extrarenal pelvis. Minimal distal abdominal aortic aneurysm dilating up to 2.3 cm in diameter from 1.6 cm in the mid abdominal aorta. No segment of the imaged abdominal aorta measures greater than 3 cm in diameter. Redemonstration of right hepatic lobe cyst. Dictated by: Jayden Vidales M.D. on 09/03/2023 at 13:05 Approved by: Jayden Vidales M.D. on 09/03/2023 at 13:11
== END ==
PROVIDERS: PCP Nurse Practitioner; Referring Provider Nurse Practitioner; Visit Provider Nurse Practitioner
DX: K76.89 Other specified diseases of liver (principal); I77.811 Abdominal aortic ectasia; R14.0 Abdominal distension (gaseous); R10.9 Unspecified abdominal pain; Z90.49 Acquired absence of other specified parts of digestive tract; Z90.710 Acquired absence of both cervix and uterus; Z90.722 Acquired absence of ovaries, bilateral
CPT/HCPCS: 76700; 76830; 76856

== ENCOUNTER → 2023-09-17 12:08 | Outpatient (CLI) | payer OTHER, SELFPAY ==
[2023-09-17 14:28] LABS: Add Manual Diff / Slide Review NO; Basophils Absolute Auto 100 /uL (0-100); Basophils Percent Auto 0.6 % (0-2); Eosinophils Absolute Auto 300 /uL (0-450); Eosinophils Percent Auto 3.1 % (2-4); Hematocrit 39.9 % (36-46); Hemoglobin 13.3 g/dL (12.0-16.0); Lymphocytes Absolute Auto 2100 /uL (1100-4500); Lymphocytes Percent Auto 23.3 % (25-40); Mean Corpuscular HGB Conc 33.4 % (30-36); Mean Corpuscular Hemoglobin 31.6 PG (26-34); Mean Corpuscular Volume 94.6 fL (80-100); Monocytes Absolute Auto 800 /uL (0-900); Neutrophils Absolute Auto 5700 /uL (1500-7000); Platelet Count 316 X10^3/uL (150-400); Red Blood Cell Count 4.22 X10^6/uL (4.0-5.2); Red Cell Distribution Width 13.6 % (11.6-14.8); White Blood Cell Count 8.9 X10^3/uL (4.5-11.0)
[2023-09-17 14:52] LABS: Alanine Aminotransferase 29 IU/L (<35); Albumin 4.3 g/dL (3.5-5.0); Albumin Globulin Ratio 1.3 (1.0-2.8); Alkaline Phosphatase 88 U/L (38-126); Aspartate Aminotransferase 28 IU/L (14-36); BUN Creatinine Ratio 24.7 (6-22); Bilirubin Total 0.4 mg/dL (0.2-1.3); Blood Urea Nitrogen 19 mg/dL (7-17); Calcium 9.3 mg/dL (8.4-10.2); Carbon Dioxide 29 mmol/L (22-32); Chloride 104 mmol/L (98-107); Estimated Glomerular Filt Rate > 60 mL/min (>60); Globulin 3.2 g/dL (1.7-4.1); Glucose 88 mg/dL (80-110); HEMOLYSIS < 15 (0-50); Potassium 4.7 mmol/L (3.4-5.1); Sodium 139 mmol/L (137-145); Total Protein 7.5 g/dL (6.3-8.2)
[2023-09-17 15:06] LABS: Free T4, Direct Thyroxine 0.95 ng/dL (0.78-2.19)
[2023-09-17 15:19] LABS: Thyroid Stimulating Hormone 3.36 uIU/mL (0.47-4.68)
== END ==
PROVIDERS: PCP Nurse Practitioner; Referring Provider Nurse Practitioner; Visit Provider Nurse Practitioner
DX: R63.5 Abnormal weight gain (principal); F41.8 Other specified anxiety disorders; R31.0 Gross hematuria
CPT/HCPCS: 36415; 80053; 84439; 84443; 84481; 85025

== ENCOUNTER → 2023-11-05 17:16 | Outpatient (CLI) | payer OTHER, SELFPAY ==
[2023-11-05 18:07] LABS: Add Manual Diff / Slide Review NO; Basophils Absolute Auto 100 /uL (0-100); Basophils Percent Auto 1.2 % (0-2); Eosinophils Absolute Auto 300 /uL (0-450); Eosinophils Percent Auto 2.8 % (2-4); Hemoglobin 14.5 g/dL (12.0-16.0); Lymphocytes Absolute Auto 1800 /uL (1100-4500); Lymphocytes Percent Auto 18.4 % (25-40); Mean Corpuscular HGB Conc 33.7 % (30-36); Mean Corpuscular Hemoglobin 31.8 PG (26-34); Mean Corpuscular Volume 94.2 fL (80-100); Monocytes Absolute Auto 700 /uL (0-900); Neutrophils Absolute Auto 7100 /uL (1500-7000); Neutrophils Percent Auto 70.6 % (50-75); Platelet Count 284 X10^3/uL (150-400); Red Blood Cell Count 4.57 X10^6/uL (4.0-5.2)
[2023-11-05 18:48] LABS: C-Reactive Protein Quant < 0.5 mg/dL (<1.0)
[2023-11-05 18:50] LABS: Rheumatoid Factor < 8.6 IU/mL (<12.0)
[2023-11-05 19:19] LABS: Testosterone 9.02 ng/dL (5.71-77.0)
[2023-11-05 19:27] LABS: Cortisol PM (After 5PM) 2.76 ug/dL (1.7-14.1)
[2023-11-05 22:03] LABS: Erythrocyte Sedimentation Rate 14 MM/HR (0-20)
[2023-11-06 02:36] LABS: Progesterone, Total 0.21 ng/mL
== END ==
PROVIDERS: PCP Nurse Practitioner; Referring Provider Nurse Practitioner; Visit Provider Nurse Practitioner
DX: R63.5 Abnormal weight gain (principal); M25.50 Pain in unspecified joint; E23.7 Disorder of pituitary gland, unspecified; E27.9 Disorder of adrenal gland, unspecified; E34.9 Endocrine disorder, unspecified; D89.89 Other specified disorders involving the immune mechanism, not elsewhere classified
CPT/HCPCS: 36415; 82533; 82672; 84144; 84403; 85025; 85651; 86038; 86140; 86277; 86430

== ENCOUNTER → 2023-11-06 08:58 | Outpatient (CLI) | payer OTHER, SELFPAY ==
[2023-11-06 11:50] LABS: Cortisol AM (Before 10AM) 5.24 ug/dL (4.46-22.7)
== END ==
PROVIDERS: PCP Nurse Practitioner; Referring Provider Nurse Practitioner; Visit Provider Nurse Practitioner
DX: R63.5 Abnormal weight gain (principal); M25.50 Pain in unspecified joint; E23.7 Disorder of pituitary gland, unspecified; E27.9 Disorder of adrenal gland, unspecified; E34.9 Endocrine disorder, unspecified
CPT/HCPCS: 36415; 82533

== ENCOUNTER 2024-12-02 09:33 | Inpatient (IN) | payer OTHER, SELFPAY ==
[2024-12-02] VITALS (28 sets, daily range): BP systolic 86–138; BP diastolic 58–76; PULSE 68–113; RESP 12–23; TEMP 35.7–36.6; O2SAT 93–100; BMI 25.0; BMI 24.7
--- NOTE | 2024-12-02 | DI.RAD.S_ITS ---
PROCEDURE: XR FEMUR LT MIN 2V INDICATIONS: ORIF SURGERY TECHNIQUE: Intraoperative fluoroscopic images of the left femur COMPARISON: [facility], CR, XR HIP W PEL LT 2V, 12/02/2024, 9:35. FINDINGS: Intraoperative fluoroscopic images of the left femur demonstrates interval ORIF of known proximal left femur fracture. IMPRESSION: Intraoperative fluoroscopic support for ORIF of proximal left femur fracture. No gross hardware complication. Please see separate procedure note for further details. Dictated by: Jayden Vidales M.D. on 12/02/2024 at 20:07 Approved by: Jayden Vidales M.D. on 12/02/2024 at 20:08
--- NOTE | 2024-12-02 09:37 | ED.TRAUMA ---
HPI - Trauma General Chief Complaint: Fall Stated Complaint: Fall; L Hip pain Time Seen by Provider: 12/02/24 09:36 History of Present Illness HPI narrative: 74-year-old female smoker history of pulmonary emphysema, pulmonary nodules, esophageal thickening, hyperlipidemia, depression with anxiety, GERD, hiatal hernia, was cleaning her basement when she hit the coffee table after losing her balance with her left hip presenting via EMS with left hip pain despite giving 50 fentanyl x2 unable to bear any weight at this time. Patient denies headache dizziness blurred vision neck pain chest pain back pain bowel or bladder incontinence shortness of breath dyspnea on exertion. Other than what is stated 14 point review of system is negative. Related Data Previous Rx's ?Medication ?Instructions ?Recorded albuterol sulfate 90 mcg/actuation 2 puff inhalation Q4-6H PRN 01/02/23 aerosol inhaler shortness of breath or wheezing #6.7 grams atorvastatin 20 mg tablet 20 mg PO QPM #90 tabs 12/16/23 omeprazole 20 mg capsule,delayed 20 mg PO BID #180 caps 10/13/24 release paroxetine HCl 20 mg tablet 20 mg PO DAILY #90 tabs 10/13/24 Allergies Allergy/AdvReac Type Severity Reaction Status Date / Time penicillin G (PENICILLIN G) Allergy Mild RASH A Verified 09/10/24 15:58 CHILD cephalexin (CEPHALEXIN) Allergy Unknown Verified 09/10/24 15:58 clindamycin (CLINDAMYCIN) Allergy Unknown tongue Verified 09/10/24 15:58 spasms tamsulosin AdvReac Intermediate puffy eyes Verified 09/10/24 15:58 Review of Systems Review of Systems ROS Unobtainable: All systems reviewed & are unremarkable except as noted in HPI and below Patient History Medical History Tobacco use disorder, moderate, in early remission History of smoking Constipation Esophageal thickening Bochdalek hernia Hiatal hernia Pulmonary emphysema Pulmonary nodules/lesions, multiple Abdominal aortic aneurysm (AAA) 3.0 cm to 5.0 cm in diameter in female Tobacco use disorder Postmenopausal atrophic vaginitis Right nephrolithiasis Gross hematuria Altered bowel habits GERD (gastroesophageal reflux disease) Lower urinary tract symptoms (LUTS) Postmenopausal atrophic vaginitis Right nephrolithiasis History of UTI Right kidney stone Obstructive defect of renal pelvis Non-compliance Depression with anxiety Hx of small bowel obstruction Surgical History History of laparoscopic cholecystectomy H/O: hysterectomy Family History Father Hearing impairment UTI (urinary tract infection) Kidney stones Social History household members: family Smoking Status: Former smoker quit status: considering quitting second hand exposure: No alcohol intake: current substance use type: does not use alcohol intake frequency: holidays/special occasions only Exam Narrative Exam Narrative: GENERAL: [74] year old patient appears stated age. Well-developed patient, in mild distress. HEAD: Atraumatic. Normocephalic. EYES: Pupils equal round and reactive. Extraocular motions intact. No scleral icterus. No injection or drainage. NECK: Trachea midline. Non tender CARDIOVASCULAR: Regular rate and rhythm without murmurs, gallops, or rubs. RESPIRATORY: Clear to auscultation. Breath sounds equal bilaterally. No wheezes, rales, or rhonchi. GASTROINTESTINAL: Abdomen soft, non-tender, nondistended. EXTREMITIES: No edema or joint tenderness. BACK: Nontender without deformity or crepitance. No flank tenderness. NEURO: AOx3. GCS 15 nonfocal neuro exam spontaneously moving all her arms and right leg with no difficulty SKIN: No rash or erythema of visible areas Initial Vital Signs Initial Vital Signs: Vital Signs Pulse Rate 87 12/02/24 09:38 Pulse Oximetry 94 12/02/24 09:38 Course Orders Ordered: ED Orders 12/02/24 09:40 CBC Auto Diff [Complete Blood Count AUTO DIFF] Stat CMP [Comprehensive Metabolic Panel] Stat PT [Prothrombin Time INR] Stat PTT [PTT Partial Thromboplastin Ric] Stat Troponin I Stat 12/02/24 09:41 XR hip w pel LT 2V Stat 12/02/24 09:47 CT pelvis wo con Stat 12/02/24 10:51 EKG-12 Lead Stat Discontinued Medications Hydromorphone HCl (Hydromorphone 1 Mg Inj) 1 mg IV NOW ONE Stop: 12/02/24 09:53 Last Admin: 12/02/24 10:11 Dose: 1 mg Documented By: PRAVIN Hydromorphone HCl (Hydromorphone 0.5 Mg Inj) 0.5 mg IV NOW ONE Stop: 12/02/24 11:35 Last Admin: 12/02/24 11:36 Dose: 0.5 mg Documented By: FARZANEH Ondansetron HCl (Ondansetron 4 Mg/2 Ml Inj) 4 mg IV NOW ONE Stop: 12/02/24 11:14 Last Admin: 12/02/24 11:37 Dose: 4 mg Documented By: FARZANEH Vital Signs Vital signs: Vital Signs - 8 hr 12/02/24 09:38 12/02/24 09:45 12/02/24 10:15 Temperature 97.7 F Pulse Rate 87 88 Respiratory Rate 19 Blood Pressure 124/65 107/65 Pulse Oximetry 94 95 Oxygen Delivery Method Room Air 12/02/24 10:15 12/02/24 10:20 12/02/24 10:30 Temperature Pulse Rate 86 92 H Respiratory Rate Blood Pressure 116/73 Pulse Oximetry 94 93 Oxygen Delivery Method 12/02/24 10:32 12/02/24 11:00 12/02/24 11:00 Temperature Pulse Rate 91 H 95 H Respiratory Rate Blood Pressure 121/71 Pulse Oximetry 95 Oxygen Delivery Method 12/02/24 11:20 12/02/24 11:20 Temperature Pulse Rate 93 H Respiratory Rate Blood Pressure 110/73 Pulse Oximetry 93 Oxygen Delivery Method MDM - Trauma Lab Data 12/02/24 09:40 12/02/24 09:40 Labs: Lab Results 12/02/24 Range/Units 09:40 WBC 8.7 (4.5-11.0) X10^3/uL RBC 4.41 (4.0-5.2) X10^6/uL Hgb 13.5 (12.0-16.0) g/dL Hct 40.6 (36-46) % MCV 92.0 (80-100) fL MCH 30.6 (26-34) PG MCHC 33.3 (30-36) % RDW 13.8 (11.6-14.8) % Plt Count 281 (150-400) X10^3/uL Neut % (Auto) 67.9 (50-75) % Lymph % (Auto) 21.2 L (25-40) % [place] % (Auto) 6.5 (3-14) % Eos % (Auto) 3.5 (2-4) % Baso % (Auto) 0.9 (0-2) % Neut # (Auto) 5900 (6915-6048) /uL Lymph # (Auto) 1800 (9490-6056) /uL [place] # (Auto) 600 (0-900) /uL Eos # (Auto) 300 (0-450) /uL Baso # (Auto) 100 (0-100) /uL PT 12.0 (9.4-12.5) SECONDS INR 1.1 (0.9-1.3) APTT 33 (25.1-36.5) SECONDS Sodium 136 L (137-145) mmol/L Potassium 3.5 (3.4-5.1) mmol/L Chloride 103 (98-107) mmol/L Carbon Dioxide 21 L (22-32) mmol/L BUN 14 (7-17) mg/dL Creatinine 0.69 (0.52-1.04) mg/dL Estimated GFR > 60 (>60) mL/min BUN/Creatinine Ratio 20.3 (6-22) Glucose 153 H (70-99) mg/dL Calcium 8.9 (8.4-10.2) mg/dL Total Bilirubin 0.7 (0.2-1.3) mg/dL AST 37 H (14-36) IU/L ALT 22 (<35) IU/L Alkaline Phosphatase 133 H (38-126) U/L Troponin I < 0.012 (0.01-0.034) ng/mL Total Protein 7.2 (6.3-8.2) g/dL Albumin 4.3 (3.5-5.0) g/dL Globulin 2.9 (1.7-4.1) g/dL Albumin/Globulin Ratio 1.5 (1.0-2.8) Imaging Data CT scan - abdomen/pelvis: Radiologist's Impression: [address] [address] [address] Scan Report Signed Patient: Ruth Bobo MR#: [id number] : 1950 Acct:[id number] Age/Sex: 74 / F Date of Service: 12/02/24 Loc: ED Accession Number: [id number] Procedure: CT pelvis wo con Ordering Provider: John Farmer D.O. PROCEDURE: CT PEL WO CON INDICATIONS: L hip pain TECHNIQUE: Noncontrast 3 mm axial sections acquired through the bony pelvis, with coronal and sagittal reformatting. For radiation dose reduction, the following was used: automated exposure control, adjustment of mA and/or kV according to patient size. COMPARISON: [facility], CT, CT CHEST ABD PEL W CON, 07/16/2023, 14:33. [facility], CR, XR HIP W PEL LT 2V, 12/02/2024, 9:35. FINDINGS: Image quality: Excellent. Bones: There is a mildly comminuted and displaced fracture of the left proximal femoral shaft. The proximal subtle fractures at the level of the lesser trochanter, which is displaced proximally. The dominant humeral shaft component is displaced inferior medially with mild overriding of fracture fragments. No additional pelvic fracture is seen. Soft tissues: Soft tissue edema is seen surrounding the proximal femoral fracture site. The articular cartilages, ligaments, tendons are not well evaluated with CT. Visualized musculature is age-appropriate in bulk. Mildly prominent stool in the rectum. Colonic diverticulosis is noted. Non-obstructing calculus at the inferior pole the right kidney. IMPRESSION: Comminuted displaced fracture of the left proximal femur with proximal extent at the level of the lesser trochanter, which is displaced proximally. ECG Data Interpretation: NSR Hr 90 CO 158 QRS [address]-t wave change No previous EKG MDM Narrative Medical decision making narrative: All lab work vital signs nurse triage note medication list previous ER visits and all imaging studies reviewed. CT scan shows comminuted displaced fracture of the left proximal femur with proximal extent at the level of the lesser trochanter which is displaced proximally. EKG showed normal sinus rhythm heart rate is 90 no STT wave changes no previous EKG to compare against. Lab work shows CBC CMP were unremarkable except glucose was 153 and troponin is less than 0.012. Case discussed with Dr. Konrad Landeros orthopedic surgeon on-call who will take the patient to the OR at 4:00 p.m. today. Case discussed with [facility] Discharge Plan Departure Patient Disposition: Admitted As Inpatient Clinical Impression: Closed femur fracture Qualifiers: Encounter type: initial encounter Femur location: lesser trochanter Fracture alignment: displaced Laterality: right Qualified Code(s): S72.121A - Displaced fracture of lesser trochanter of right femur, initial encounter for closed fracture Admit Date/Time: 12/02/24 12:00 Admit Provider: Phu Cote
--- NOTE | 2024-12-02 09:41 | DI.RAD.S_ITS ---
PROCEDURE: XR HIP W PEL IF DONE LT 2V INDICATIONS: fall TECHNIQUE: AP pelvis with lateral view of the left hip. COMPARISON: None. FINDINGS: Bones: Comminuted displaced fracture of the left proximal femoral shaft below the level of the trochanters. Bones are osteopenic. Evaluation is mildly compromised by structures outside of the patient overlying the pelvis. Soft tissues: The visualized bowel gas pattern is normal. No suspicious soft tissue calcifications. Right upper quadrant cholecystectomy clips. IMPRESSION: Displaced comminuted subtrochanteric fracture of the left proximal femoral shaft. Approved by: Vish Martinez M.D. on 12/02/2024 at 10:56
--- NOTE | 2024-12-02 09:47 | DI.CT.S_ITS ---
PROCEDURE: CT PEL WO CON INDICATIONS: L hip pain TECHNIQUE: Noncontrast 3 mm axial sections acquired through the bony pelvis, with coronal and sagittal reformatting. For radiation dose reduction, the following was used: automated exposure control, adjustment of mA and/or kV according to patient size. COMPARISON: [facility], CT, CT CHEST ABD PEL W CON, 07/16/2023, 14:33. [facility], CR, XR HIP W PEL LT 2V, 12/02/2024, 9:35. FINDINGS: Image quality: Excellent. Bones: There is a mildly comminuted and displaced fracture of the left proximal femoral shaft. The proximal subtle fractures at the level of the lesser trochanter, which is displaced proximally. The dominant humeral shaft component is displaced inferior medially with mild overriding of fracture fragments. No additional pelvic fracture is seen. Soft tissues: Soft tissue edema is seen surrounding the proximal femoral fracture site. The articular cartilages, ligaments, tendons are not well evaluated with CT. Visualized musculature is age-appropriate in bulk. Mildly prominent stool in the rectum. Colonic diverticulosis is noted. Non-obstructing calculus at the inferior pole the right kidney. IMPRESSION: Comminuted displaced fracture of the left proximal femur with proximal extent at the level of the lesser trochanter, which is displaced proximally. Approved by: Vish Martinez M.D. on 12/02/2024 at 11:02
[2024-12-02] MEDS: HYDROMORPHONE 1 MG INJ IV (10:11)
[2024-12-02 11:13] LABS: Add Manual Diff / Slide Review NO; Basophils Absolute Auto 100 /uL (0-100); Basophils Percent Auto 0.9 % (0-2); Eosinophils Absolute Auto 300 /uL (0-450); Eosinophils Percent Auto 3.5 % (2-4); Hematocrit 40.6 % (36-46); Hemoglobin 13.5 g/dL (12.0-16.0); Lymphocytes Absolute Auto 1800 /uL (1100-4500); Lymphocytes Percent Auto 21.2 % (25-40); Mean Corpuscular HGB Conc 33.3 % (30-36); Mean Corpuscular Hemoglobin 30.6 PG (26-34); Monocytes Absolute Auto 600 /uL (0-900); Monocytes Percent Auto 6.5 % (3-14); Neutrophils Absolute Auto 5900 /uL (1500-7000); Neutrophils Percent Auto 67.9 % (50-75); Platelet Count 281 X10^3/uL (150-400); Red Blood Cell Count 4.41 X10^6/uL (4.0-5.2); Red Cell Distribution Width 13.8 % (11.6-14.8); White Blood Cell Count 8.7 X10^3/uL (4.5-11.0)
[2024-12-02 11:14] LABS: INR 1.1 (0.9-1.3)
[2024-12-02 11:16] LABS: PTT Partial Thromboplastin Tim 33 SECONDS (25.1-36.5)
[2024-12-02 11:18] LABS: Alanine Aminotransferase 22 IU/L (<35); Albumin 4.3 g/dL (3.5-5.0); Albumin Globulin Ratio 1.5 (1.0-2.8); Alkaline Phosphatase 133 U/L (38-126); Aspartate Aminotransferase 37 IU/L (14-36); BUN Creatinine Ratio 20.3 (6-22); Bilirubin Total 0.7 mg/dL (0.2-1.3); Blood Urea Nitrogen 14 mg/dL (7-17); Calcium 8.9 mg/dL (8.4-10.2); Carbon Dioxide 21 mmol/L (22-32); Chloride 103 mmol/L (98-107); Estimated Glomerular Filt Rate > 60 mL/min (>60); Globulin 2.9 g/dL (1.7-4.1); Glucose 153 mg/dL (70-99); HEMOLYSIS 20 (0-50); Potassium 3.5 mmol/L (3.4-5.1); Sodium 136 mmol/L (137-145); Total Protein 7.2 g/dL (6.3-8.2)
--- NOTE | 2024-12-02 11:18 | EKG_ITS ---
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
[2024-12-02 11:30] LABS: Troponin I < 0.012 ng/mL (0.01-0.034)
[2024-12-02] MEDS: HYDROMORPHONE 0.5 MG INJ IV (11:36)
[2024-12-02] MEDS: ONDANSETRON 4 MG/2 ML INJ IV ×3 (11:37→22:36)
--- NOTE | 2024-12-02 12:18 | PC.NURSE ---
Pedal pulses in tact.
--- NOTE | 2024-12-02 12:32 | PM.HP.1 ---
History of Present Illness History of Present Illness Date Patient Seen: 12/02/24 Chief complaint: Fall; L Hip pain Narrative: This is a 74 year old female with PMH of emphysema (dx on CT imaging per review), descending thoracic aortic aneurysm, hernia who had a mechanical fall this morning and could not bear weight after hitting the coffee table. She received 50 mcg of fentanyl with EMS and continued to have pain. Imaging showed a left proximal femur fracture. Orthopedics was consulted and will take the patient to the OR this afternoon. Patient denies recent fever, chills, cough, dyspnea, nausea, vomiting, abdominal pain, dysuria, dyspnea on exertion, leg edema. She possibly has some increased urinary frequency. [facility] Medical History Tobacco use disorder, moderate, in early remission History of smoking Constipation Esophageal thickening Bochdalek hernia Hiatal hernia Pulmonary emphysema Pulmonary nodules/lesions, multiple Abdominal aortic aneurysm (AAA) 3.0 cm to 5.0 cm in diameter in female Tobacco use disorder Postmenopausal atrophic vaginitis Right nephrolithiasis Gross hematuria Altered bowel habits GERD (gastroesophageal reflux disease) Lower urinary tract symptoms (LUTS) Postmenopausal atrophic vaginitis Right nephrolithiasis History of UTI Right kidney stone Obstructive defect of renal pelvis Non-compliance Depression with anxiety Hx of small bowel obstruction Surgical History History of laparoscopic cholecystectomy H/O: hysterectomy Family History Father Hearing impairment UTI (urinary tract infection) Kidney stones Social History household members: family Smoking Status: Former smoker quit status: considering quitting second hand exposure: No alcohol intake: current substance use type: does not use Meds Home Medications and Allergies Home Medications ?Medication ?Instructions ?Recorded ?Confirmed ?Type atorvastatin 20 mg tablet 20 mg PO QPM #90 tabs 12/16/23 12/02/24 Rx omeprazole 20 mg capsule,delayed 20 mg PO BID #180 caps 10/13/24 12/02/24 Rx release paroxetine HCl 20 mg tablet 20 mg PO DAILY #90 tabs 10/13/24 12/02/24 Rx Allergies Allergy/AdvReac Type Severity Reaction Status Date / Time penicillin G (PENICILLIN G) Allergy Mild RASH A Verified 09/10/24 15:58 CHILD cephalexin (CEPHALEXIN) Allergy Unknown Verified 09/10/24 15:58 clindamycin (CLINDAMYCIN) Allergy Unknown tongue Verified 09/10/24 15:58 spasms tamsulosin AdvReac Intermediate puffy eyes Verified 09/10/24 15:58 Review of Systems Review of Systems Narrative: All other systems reviewed with the patient and are negative unless otherwise stated. Exam Vital Signs (past 8 hours): - 12/02/24 09:38 12/02/24 09:45 12/02/24 10:15 Temperature 97.7 F Pulse Rate 87 88 Respiratory Rate 19 Blood Pressure 124/65 107/65 Pulse Oximetry 94 95 Oxygen Delivery Method Room Air 12/02/24 10:15 12/02/24 10:20 12/02/24 10:30 Temperature Pulse Rate 86 92 H Respiratory Rate Blood Pressure 116/73 Pulse Oximetry 94 93 Oxygen Delivery Method 12/02/24 10:32 12/02/24 11:00 12/02/24 11:00 Temperature Pulse Rate 91 H 95 H Respiratory Rate Blood Pressure 121/71 Pulse Oximetry 95 Oxygen Delivery Method 12/02/24 11:20 12/02/24 11:20 12/02/24 11:30 Temperature Pulse Rate 93 H 95 H Respiratory Rate 20 Blood Pressure 110/73 Pulse Oximetry 93 95 Oxygen Delivery Method 12/02/24 11:30 12/02/24 12:00 12/02/24 12:00 Temperature Pulse Rate 100 H Respiratory Rate 20 Blood Pressure 108/65 138/73 Pulse Oximetry 94 Oxygen Delivery Method Oxygen Delivery Method Room Air Narrative Exam Narrative: General:? Patient is well developed and well nourished, in no distress at this time. Shifting frequently due to discomfort. Lungs:? CTA b/l no wheezing rhonchi or rales. Cardio:?RRR no m/r/g. Abdomen: S NT ND. Extremities: No edema or joint effusions. No cyanosis or clubbing. Objective ECG Impression: Normal sinus rhythm, nonspecific ST wave abnormality similar to previous tracings. Labs 12/02/24 09:40 12/02/24 09:40 Labs: Laboratory Results - last 24 hr 12/02/24 09:40 WBC 8.7 RBC 4.41 Hgb 13.5 Hct 40.6 MCV 92.0 MCH 30.6 MCHC 33.3 RDW 13.8 Plt Count 281 Neut % (Auto) 67.9 Lymph % (Auto) 21.[address] [place] % (Auto) 6.5 Eos % (Auto) 3.5 Baso % (Auto) 0.9 Neut # (Auto) 5900 Lymph # (Auto) 1800 [place] # (Auto) 600 Eos # (Auto) 300 Baso # (Auto) 100 PT 12.0 INR 1.1 APTT 33 Sodium 136 L Potassium 3.5 Chloride 103 Carbon Dioxide 21 L BUN 14 Creatinine 0.69 Estimated GFR > 60 BUN/Creatinine Ratio 20.3 Glucose 153 H Calcium 8.9 Total Bilirubin 0.7 AST 37 H ALT 22 Alkaline Phosphatase 133 H Troponin I < 0.012 Total Protein 7.2 Albumin 4.3 Globulin 2.9 Albumin/Globulin Ratio 1.5 Assessment & Plan Assessment & Plan narrative: 1. Left displaced proximal femur fracture, pathologic, present on admission - NPO with plan for surgery later today - patient appears medically optimized prior to procedure. Has emphysema on CT imaging, minimal symptoms and has never used her inhaler. No anemia or other findings on presenting CBC or Chemistries. - appreciate orthopedic consultation and intervention - PT/OT after surgery - as needed pain control with opiates for now prior to OR - check UA given recent urinary frequency. 2. hiatal hernia - continue home PPI BID 3. HLD - continue statin 4. Chronic joint pain - continue home paroxetine Code: Full, surrogate is patient's daughter DVT: SCDs prior to OR, per surgeon following procedure. I have utilized all available immediate resources to obtain, update, or review the patient's current medications. Dispo: patient admitted under inpatient status. Unclear if will be able to discharge home or possible SNF, will have PT/OT evaluations. Additional history obtained via discussions with the ER provider. These discussions contributed to the creation of the above assessment and plan. I have reviewed patient's presenting documentation, labs, and imaging personally. Time-Based Coding :: [TOTAL MINUTES] spent with patient and on the chart (including review of chart, obtaining history, exam, reviewing outside data, placing orders, documenting exam and treatment plan, and counseling patient) on [DATE].
--- NOTE | 2024-12-02 12:53 | PM.HP.IH.1 ---
History of Present Illness History of Present Illness Date Patient Seen: 12/02/24 Chief complaint: Fall; L Hip pain Narrative: CC: ?Left femur fracture on 12/02/24 HPI: 74yo F with a past medical history of pulmonary emphysema, history of smoking, AAA, GERD presents to the emergency department after a ground level fall.? She reports that she tripped while cleaning in her house and had immediate pain in the left hip.? She was unable to ambulate.? She was then brought to the emergency department where radiographs were obtained and it was identified that she had a left proximal femur fracture. On presentation today she reports that she has isolated left hip pain.? No prior hip pain. [facility] Medical History Tobacco use disorder, moderate, in early remission History of smoking Constipation Esophageal thickening Bochdalek hernia Hiatal hernia Pulmonary emphysema Pulmonary nodules/lesions, multiple Abdominal aortic aneurysm (AAA) 3.0 cm to 5.0 cm in diameter in female Tobacco use disorder Postmenopausal atrophic vaginitis Right nephrolithiasis Gross hematuria Altered bowel habits GERD (gastroesophageal reflux disease) Lower urinary tract symptoms (LUTS) Postmenopausal atrophic vaginitis Right nephrolithiasis History of UTI Right kidney stone Obstructive defect of renal pelvis Non-compliance Depression with anxiety Hx of small bowel obstruction Surgical History History of laparoscopic cholecystectomy H/O: hysterectomy Family History Father Hearing impairment UTI (urinary tract infection) Kidney stones Social History household members: family Smoking Status: Former smoker quit status: considering quitting second hand exposure: No alcohol intake: current substance use type: does not use Meds Home Medications and Allergies Home Medications ?Medication ?Instructions ?Recorded ?Confirmed ?Type atorvastatin 20 mg tablet 20 mg PO QPM #90 tabs 12/16/23 12/02/24 Rx omeprazole 20 mg capsule,delayed 20 mg PO BID #180 caps 10/13/24 12/02/24 Rx release paroxetine HCl 20 mg tablet 20 mg PO DAILY #90 tabs 10/13/24 12/02/24 Rx Allergies Allergy/AdvReac Type Severity Reaction Status Date / Time penicillin G (PENICILLIN G) Allergy Mild RASH A Verified 09/10/24 15:58 CHILD cephalexin (CEPHALEXIN) Allergy Unknown Verified 09/10/24 15:58 clindamycin (CLINDAMYCIN) Allergy Unknown tongue Verified 09/10/24 15:58 spasms tamsulosin AdvReac Intermediate puffy eyes Verified 09/10/24 15:58 Exam Vital Signs (past 8 hours): - 12/02/24 09:38 12/02/24 09:45 12/02/24 10:15 Temperature 97.7 F Pulse Rate 87 88 Respiratory Rate 19 Blood Pressure 124/65 107/65 Pulse Oximetry 94 95 Oxygen Delivery Method Room Air 12/02/24 10:15 12/02/24 10:20 12/02/24 10:30 Temperature Pulse Rate 86 92 H Respiratory Rate Blood Pressure 116/73 Pulse Oximetry 94 93 Oxygen Delivery Method 12/02/24 10:32 12/02/24 11:00 12/02/24 11:00 Temperature Pulse Rate 91 H 95 H Respiratory Rate Blood Pressure 121/71 Pulse Oximetry 95 Oxygen Delivery Method 12/02/24 11:20 12/02/24 11:20 12/02/24 11:30 Temperature Pulse Rate 93 H 95 H Respiratory Rate 20 Blood Pressure 110/73 Pulse Oximetry 93 95 Oxygen Delivery Method 12/02/24 11:30 12/02/24 12:00 12/02/24 12:00 Temperature Pulse Rate 100 H Respiratory Rate 20 Blood Pressure 108/65 138/73 Pulse Oximetry 94 Oxygen Delivery Method Oxygen Delivery Method Room Air Narrative Exam Narrative: LEFT Hip: Inspection: No erythema, swelling, bruising, atrophy. ROM deferred due to known hip fracture Neurovascular exam: 5/5 q/h/ta/gc/ehl; SILT s/s/sp/dp/t, 2+ dp Imaging: Radiographs of the left hip on December 02, 2024:? Displaced comminuted subtrochanteric fracture of the left proximal femoral shaft. CT scan of the left hip on December 02, 2024: Comminuted displaced fracture of the left proximal femur.? The proximal portion of the fracture extends to the level of the lesser trochanter which is displaced proximally. Objective Labs 12/02/24 09:40 12/02/24 09:40 Labs: Laboratory Results - last 24 hr 12/02/24 09:40 WBC 8.7 RBC 4.41 Hgb 13.5 Hct 40.6 MCV 92.0 MCH 30.6 MCHC 33.3 RDW 13.8 Plt Count 281 Neut % (Auto) 67.9 Lymph % (Auto) 21.2 L [place] % (Auto) 6.5 Eos % (Auto) 3.5 Baso % (Auto) 0.9 Neut # (Auto) 5900 Lymph # (Auto) 1800 [place] # (Auto) 600 Eos # (Auto) 300 Baso # (Auto) 100 PT 12.0 INR 1.1 APTT 33 Sodium 136 L Potassium 3.5 Chloride 103 Carbon Dioxide 21 L BUN 14 Creatinine 0.69 Estimated GFR > 60 BUN/Creatinine Ratio 20.3 Glucose 153 H Calcium 8.9 Total Bilirubin 0.7 AST 37 H ALT 22 Alkaline Phosphatase 133 H Troponin I < 0.012 Total Protein 7.2 Albumin 4.3 Globulin 2.9 Albumin/Globulin Ratio 1.5 Assessment & Plan Assessment and plan (1) Closed femur fracture: Qualifiers: Encounter type: initial encounter Femur location: lesser trochanter Fracture alignment: displaced Laterality: right Qualified Code(s): S72.121A - Displaced fracture of lesser trochanter of right femur, initial encounter for closed fracture Status: Acute Assessment & Plan narrative: 74yo F presents with a left proximal femur fracture.? I explained to the patient that it is highly recommended that she undergoes operative fixation for faster return to ambulation. The risks, benefits and alternatives of the procedure were discussed with the patient to include bleeding, infection, damage to surrounding structures, ongoing pain, hip stiffness, malunion, nonunion, need for additional surgeries and anesthesia risks such as heart attack, stroke and .? Patient understood these risks and want to move forward with the procedure.? Consent was completed in the emergency department. She was consented for an open reduction and internal fixation of the left proximal femur fracture. The patient had the treatment plan explained, questions answered and seemed satisfied with the plan. There were no apparent barriers to communication. The documentation in this note may have been entered with the assistance of computer voice recognition and dictation software. Therefore, it may contain unintended errors in text, spelling, punctuation, or grammar. Konrad Landeros MD Orthopaedic Surgeon Time-Based Coding :: Forty-five minutes spent with patient and on the chart (including review of chart, obtaining history, exam, reviewing outside data, placing orders, documenting exam and treatment plan, and counseling patient) on December 02, 2024. 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
--- NOTE | 2024-12-02 12:53 | PC.NURSE ---
Arrived to floor at 1230 A/O Pt states she is confortable. Surgery scheduled for 1600 Pt oriented to room & call system
[2024-12-02] MEDS: SODIUM CHLORIDE 0.9% 1,000 ML 75 ML IV (13:19)
[2024-12-02] MEDS: LACTATED RINGERS 1,000 ML 42 ML IV ×2 (16:14→17:35)
[2024-12-02] MEDS: CEFAZOLIN 2 GM/100 ML PREMIX 100 ML IV (16:25)
[2024-12-02] MEDS: TRANEXAMIC ACID 1,000 MG VIAL 1000 MG INJ (16:58)
--- NOTE | 2024-12-02 17:14 | SUR.OPER ---
Patient supine on padded [place] table, one arm on padded arm board at <90, other arm padded and secured with tape across patient's chest, both legs secured in padded traction boots and positioned per surgeon, padded post at patient's groin, pressure points checked and padded. Pt has cath, ensured cath was draining to gravity. Dr. Landeros and Dr. Galvez in room at time of positioned and approved of final position. All pressure points padded and covered.
[2024-12-02] MEDS: BUPIVACAINE 0.25% (PF) VIAL 30 ML INJ (17:35)
--- NOTE | 2024-12-02 19:29 | DI.RAD.S_ITS ---
PROCEDURE: XR FEMUR LT MIN 2V INDICATIONS: S/P Left Femur ORIF TECHNIQUE: AP and lateral views of the femur were acquired. COMPARISON: [facility], CR, XR HIP W PEL LT 2V, 12/02/2024, 9:35. [facility], CR, XR FEMUR LT MIN 2V, 12/02/2024, 17:21. FINDINGS: Bones: Status post interval open reduction internal fixation of known proximal left femur fracture. Postsurgical alignment is anatomic. No acute hardware complication seen. Soft tissues: No suspicious soft tissue calcifications or masses. Expected soft tissue changes from surgical fixation. Multiple skin kristan noted in the lateral hip and distal thigh. IMPRESSION: Expected postsurgical changes of interval open reduction internal fixation of proximal left femur fracture. No gross hardware complication seen. Dictated by: Jayden Vidales M.D. on 12/02/2024 at 20:09 Approved by: Jayden Vidales M.D. on 12/02/2024 at 20:10
--- NOTE | 2024-12-02 19:50 | P.OP_ITS ---
Operative Date/Time/Diagnoses Date of procedure: 12/02/24 Time of procedure: 16:30 Pre-op diagnosis: LEFT Proximal Femur Fracture Post-op diagnosis: same Procedure & Clinicians Procedure: Open Reduction and Internal Fixation of the LEFT Proximal Femur Fracture Same procedure(s) as scheduled: Yes Surgeon: Konrad Landeros Click Yes if Unassisted: No Anesthesia Type: General Operative Notes Findings: Displaced proximal femur fracture Specimen(s): none sent Applied: none Estimated Blood Loss (mL): 200 Blood products transfused: none Procedure in detail: Op Note Date of Procedure: December 02, 2024 Pre-Op Diagnosis: Left proximal femur fracture Post-Op Diagnosis: Left proximal femur fracture Procedure: Open Reduction and Internal fixation of the left proximal femur fracture Surgeon: Konrad Landeros MD Co-Surgeon: Betty Galvez DO Assistance surgeon was used throughout the entirety of the case. They assisted with room set up, patient positioning, draping, retraction, reduction, fixation and closure. They were essential for the success of the case. Anesthesia Type: General EBL: 200 cc Urine Output: N/A Specimens Removed: None Complications: None Implants/Grafts: [employer]diaye [employer] Nephew Inter [place] Long Nail Drains: No lines, drains, or airways are recorded for this episode. Findings: Displaced left proximal femur fracture Narrative: The patient was taken to the OR and administered anesthetic and preoperative antibiotics. They were placed on the fracture table with the operative leg in traction boot. SCD device placed on the nonoperative leg and it was placed in 90? hip and knee flexion on the support. Using traction and appropriate rotation, we attempted to obtain a anatomic reduction. However despite multiple changes we are unable to obtain an anatomic reduction. It was decided that we would require an open reduction at that time.. Standard prep and drape was done. A direct lateral approach was made moving posterior to the vastus lateralis. The fracture was identified and cleared off utilizing a [place] and irrigation. The proximal fragment was hyperflexed and we needed to utilize a crutch in order to bring the distal fragment up to the same level as the proximal fragment. There was a large spike that was felt medially that keyed in nicely to the di stal fragment. This was then held in place with a [place] reduction tool. The reduction was then checked in AP and lateral fluoroscopy. Happy with this reduction we turned our attention to placing the nail. Incision was made in line with and 5cm proximal to the greater trochanter. The incision was carried down through skin and subcutaneous fat to the fascia. Hemostasis achieved. The guide wire was then inserted at the tip of the greater trochanter and down into the proximal femoral shaft ensuring not to enter through the fracture site. The opening reamer was then used to ream over the guidewire down to the level of the lesser trochanter, taking care to remove bone centrally and not distract the fracture. The guidewire was removed. The ball tipped guide wire was placed to the knee and the length was measured. The canal was reamed until chatter was heard and an appropriately sized nail was then placed. Through the original lateral incision the aiming device for the helical blade was inserted down to the lateral cortex of the femur. A guidewire was then drilled into the femoral head subchondral bone traveling centrally through the neck. It was measured and over reamed at the appropriate length. The head screw was then tapped into place. The tip to apex distance was less than 1 cm on AP and lateral views. There another separate small incision and distal locking screw was then drilled and inserted. AP and lateral fluoroscopic views confirmed satisfactory reduction and implant position. The wounds were irrigated. Fascia leia closed with #0 Vicryl follo wed by skin with 2-0 Vicryl and kristan in all incisions. Sterile dressings placed. Patient transferred to recovery room bed. Patient transferred to recovery room in stable condition. Plan: Weight bearing as tolerated. Follow-up in 2 weeks for wound check and staple removal. DVT prophylaxis with 6 weeks of aspirin. Physical therapy. Konrad Landeros MD Complications: none Post-operative Condition: stable Disposition: PACU
[2024-12-02] MEDS: METOCLOPRAMIDE 10 MG/2 ML INJ IV (20:00)
[2024-12-02] MEDS: ACETAMINOPHEN 325 MG TABLET 975 MG PO (20:07)
[2024-12-02] MEDS: ACETAMINOPHEN 325 MG TABLET 650 MG PO (22:14)
[2024-12-02] MEDS: LACTATED RINGERS 1,000 ML 100 ML IV (22:14)
[2024-12-02] MEDS: DOCUSATE 100 MG CAPSULE PO (22:14)
[2024-12-02 22:18] LABS: Hemoglobin 11.5 g/dL (12.0-16.0)
[2024-12-03] VITALS (8 sets, daily range): BP systolic 101–106; BP diastolic 51–56; PULSE 94–102; RESP 16–19; TEMP 35.8–36.1; O2SAT 95–99
[2024-12-03] MEDS: ATORVASTATIN 20 MG TABLET PO ×2 (00:08→21:06)
[2024-12-03] MEDS: CEFAZOLIN 2 GM/100 ML PREMIX 100 ML IV ×2 (00:08→08:38)
[2024-12-03] MEDS: PARoxetine 20 MG TABLET PO ×2 (00:08→08:41)
--- NOTE | 2024-12-03 00:35 | PC.NURSE ---
Returned to acute care from PACU at 20:45.
[2024-12-03] MEDS: ACETAMINOPHEN 325 MG TABLET 650 MG PO ×4 (04:30→21:28)
[2024-12-03] MEDS: PANTOPRAZOLE DR 20 MG TABLET PO ×2 (06:03→16:12)
[2024-12-03 06:06] LABS: Add Manual Diff / Slide Review NO; Basophils Absolute Auto 0 /uL (0-100); Eosinophils Absolute Auto 0 /uL (0-450); Hematocrit 29.1 % (36-46); Hemoglobin 9.9 g/dL (12.0-16.0); Lymphocytes Absolute Auto 700 /uL (1100-4500); Lymphocytes Percent Auto 5.1 % (25-40); Mean Corpuscular HGB Conc 33.9 % (30-36); Mean Corpuscular Hemoglobin 30.7 PG (26-34); Mean Corpuscular Volume 90.7 fL (80-100); Monocytes Absolute Auto 800 /uL (0-900); Monocytes Percent Auto 5.7 % (3-14); Neutrophils Absolute Auto 12500 /uL (1500-7000); Neutrophils Percent Auto 89.2 % (50-75); Platelet Count 237 X10^3/uL (150-400); Red Blood Cell Count 3.21 X10^6/uL (4.0-5.2); Red Cell Distribution Width 14.1 % (11.6-14.8)
[2024-12-03 06:16] LABS: BUN Creatinine Ratio 18.2 (6-22); Blood Urea Nitrogen 14 mg/dL (7-17); Calcium 8.5 mg/dL (8.4-10.2); Carbon Dioxide 21 mmol/L (22-32); Chloride 101 mmol/L (98-107); Estimated Glomerular Filt Rate > 60 mL/min (>60); Glucose 143 mg/dL (70-99); HEMOLYSIS < 15 (0-50); Magnesium 1.6 mg/dL (1.6-2.3); Potassium 3.6 mmol/L (3.4-5.1); Sodium 133 mmol/L (137-145)
[2024-12-03] MEDS: DOCUSATE 100 MG CAPSULE PO ×2 (08:41→21:07)
--- NOTE | 2024-12-03 09:18 | PC.NURSE ---
Addendum entered by Dayna Lim R.N. 12/03/24 13:46: Pt PT, pt is ambulatory, able to get from bed to commode and back. D/c'ed Hurtado per MD orders. Pt currently resting comfortably in bed, call light within reach, plan of care continues. Original Note: Pt has adequate intake of PO fluids, d/c'ed cont IVF per MD orders, NS locked. Pt not yet ambulatory or OOB, states she prefers to wait for PT/OT to get out of bed; Hurtado to remain until ambulatory. Plan of care continues.
--- NOTE | 2024-12-03 11:11 | PM.PN.1 ---
Subjective Subjective Interval history: 74 F admitted with L proximal femur fracture, s/p ORIF of left femur yesterday with nail placement. Pain is tolerable this morning, but has not worked with therapies yet. No chest pain, shortness of breath, or nausea today. Exam Vital Signs (past 8 hours): - 12/03/24 04:00 12/03/24 08:00 12/03/24 09:53 Temperature 96.4 F L Pulse Rate 102 H Respiratory Rate 18 Blood Pressure 106/51 L Pulse Oximetry 95 99 99 Oxygen Delivery Method Room Air Room Air Oxygen Flow Rate 0 0 Oxygen Delivery Method Room Air Oxygen Flow Rate 0 Narrative Exam Narrative: General:? Patient is well developed and well nourished, in no distress at this time. Lungs:? CTA b/l no wheezing rhonchi or rales. Cardio:?RRR no m/r/g. Abdomen: S NT ND. Extremities: No edema or joint effusions. No cyanosis or clubbing. Objective Labs 12/03/24 05:50 12/03/24 05:50 Labs: Laboratory Results - last 24 hr 12/02/24 12/02/24 12/03/24 09:40 21:59 05:50 WBC 8.7 14.0 H D RBC 4.41 3.21 L Hgb 13.5 11.5 L 9.9 L Hct 40.6 35.0 L 29.1 L MCV 92.0 90.7 MCH 30.6 30.7 MCHC 33.3 33.9 RDW 13.8 14.1 Plt Count 281 237 Neut % (Auto) 67.9 89.2 H D Lymph % (Auto) 21.2 L 5.1 L [place] % (Auto) 6.5 5.7 Eos % (Auto) 3.5 0.0 L Baso % (Auto) 0.9 0.0 Neut # (Auto) 5900 21727 H Lymph # (Auto) 1800 700 L [place] # (Auto) 600 800 Eos # (Auto) 300 0 Baso # (Auto) 100 0 PT 12.0 INR 1.1 APTT 33 Sodium 136 L 133 L Potassium 3.5 3.6 Chloride 103 101 Carbon Dioxide 21 L 21 L BUN 14 14 Creatinine 0.69 0.77 Estimated GFR > 60 > 60 BUN/Creatinine Ratio 20.3 18.2 Glucose 153 H 143 H Calcium 8.9 8.5 Magnesium 1.6 Total Bilirubin 0.7 AST 37 H ALT 22 Alkaline Phosphatase 133 H Troponin I < 0.012 Total Protein 7.2 Albumin 4.3 Globulin 2.9 Albumin/Globulin Ratio 1.5 PFSH Medical History Tobacco use disorder, moderate, in early remission History of smoking Constipation Esophageal thickening Bochdalek hernia Hiatal hernia Pulmonary emphysema Pulmonary nodules/lesions, multiple Abdominal aortic aneurysm (AAA) 3.0 cm to 5.0 cm in diameter in female Tobacco use disorder Postmenopausal atrophic vaginitis Right nephrolithiasis Gross hematuria Altered bowel habits GERD (gastroesophageal reflux disease) Lower urinary tract symptoms (LUTS) Postmenopausal atrophic vaginitis Right nephrolithiasis History of UTI Right kidney stone Obstructive defect of renal pelvis Non-compliance Depression with anxiety Hx of small bowel obstruction Surgical History History of laparoscopic cholecystectomy H/O: hysterectomy Family History Father Hearing impairment UTI (urinary tract infection) Kidney stones Social History household members: family Smoking Status: Former smoker quit status: considering quitting second hand exposure: No alcohol intake: current substance use type: does not use Assessment & Plan Assessment & Plan narrative: 1. Left displaced proximal femur fracture, pathologic, present on admission - s/p ORIF of L femur with nail placement on 12/02. - appreciate orthopedic consultation and intervention - PT/OT to start today - as needed pain control with opiates for now prior to OR. Patient reports previous intolerance of several opiates, will attempt to try 2.5 mg of oxycodone. - check UA given recent urinary frequency. This was ordered but has not been collected yet. 2. hiatal hernia - continue home PPI BID 3. HLD - continue statin 4. Chronic joint pain - continue home paroxetine Code: Full, surrogate is patient's daughter DVT: SCDs prior to OR, will start ASA 81 mg BID for 6 weeks this evening. I have utilized all available immediate resources to obtain, update, or review the patient's current medications. Dispo: patient admitted under inpatient status. Unclear if will be able to discharge home or possible SNF, will have PT/OT evaluations today Time-Based Coding :: [TOTAL MINUTES] spent with patient and on the chart (including review of chart, obtaining history, exam, reviewing outside data, placing orders, documenting exam and treatment plan, and counseling patient) on [DATE]. Quality VTE Deep Vein Thrombosis/Pulmonary Embolism Present on Admission: No
--- NOTE | 2024-12-03 11:22 | PT.IIE ---
Current Diagnoses Displaced fracture of lesser trochanter of right femur, initial encounter for closed fracture (12/02/24) Surgery Performed Operation Date: 12/02/24 16:00 Actual Procedures p Intramedullary Nailing Femur, left hip - Konrad Landeros MD Surgical History (Last Reviewed 11/11/23 @ 14:41 by JULIA Torres) H/O: hysterectomy History of laparoscopic cholecystectomy Medical History (Last Reviewed 11/11/23 @ 14:41 by JULIA Torres) Abdominal aortic aneurysm (AAA) 3.0 cm to 5.0 cm in diameter in female Altered bowel habits Bochdalek hernia Constipation Depression with anxiety Esophageal thickening GERD (gastroesophageal reflux disease) Gross hematuria Hiatal hernia History of smoking History of UTI Hx of small bowel obstruction Lower urinary tract symptoms (LUTS) Non-compliance Obstructive defect of renal pelvis Postmenopausal atrophic vaginitis Postmenopausal atrophic vaginitis Pulmonary emphysema Pulmonary nodules/lesions, multiple Right kidney stone Right nephrolithiasis Right nephrolithiasis Tobacco use disorder Tobacco use disorder, moderate, in early remission Physical Therapy Inpatient Evaluation/Re-Eval M1 PT/OT-IP Prior Functional Status Start: 12/03/24 12:29 Freq: NEEDED Status: Active Protocol: Document 12/03/24 12:29 CCC (Rec: 12/03/24 12:51 CCC Desktop) Medical Review Prior Functional Status Communication I Mobility and Gait I Activities of Daily Completely independent with all ADL,IADL and drives. Living and IADL's Prior Functional Pt lives with her sister. Her sister lives upstairs and Level (Other details she lives downstairs. ) Social History Household Members family Living Arrangements House Number of Floors ( Two Floors Floors) Number of Stairs To One flight on steps with bilateral rails to her living Enter/Railing? area Home Environment High Toilet,Tub/Shower Additional Social Pt has had multiple falls in the past. History Comment M2 PT-IP Current Condition Start: 12/03/24 13:13 Freq: NEEDED Status: Active Protocol: Document 12/03/24 11:22 DLM (Rec: 12/03/24 13:36 DLM Desktop) Physical Therapy Current Condition Current Condition Evaluation Date 12/03/24 Treatment Diagnosis fall, left femur fx, ORIF Onset Date 12/02/24 M3 PT-IP Subjective Start: 12/03/24 13:13 Freq: NEEDED Status: Active Protocol: Document 12/03/24 11:22 DLM (Rec: 12/03/24 13:36 DLM Desktop) Subjective Physical Therapy Visit Type Type Initial Evaluation Visit Start Time 10:30 Visit Stop Time 11:22 Notes 52 min Number of AUTO BODY REPAIRER Visits 0 Physical Therapy Visit Comments Patient Comments Pt does not feel safe to discharge home; feels she will need SNF rehab. She is worried about the stairs at home. Patient Goals Be well enough to go home. Therapy Pain Assessment Pain When Pain Assessed During Mobility Pain Present Pain Present Pain Reported Location Left Hip Intensity 5 Scale Used Numeric (0 - 10) Description Aching,Tender,Tightness,With Movement Pain Behaviors Facial Grimacing,Guarding Pain Management Apply Cold,Re-positioning,Timing of Activity with Techniques Medications M4 PT-IP Mobility and Gait Start: 12/03/24 13:13 Freq: NEEDED Status: Active Protocol: Document 12/03/24 11:22 DLM (Rec: 12/03/24 13:36 DLM Desktop) PT-Bed Mobility Assessment Supine to Sit Supine to Sit Minimal Assistance Sit to Supine Sit to Supine Minimal Assistance Scooting Scooting to Edge of Minimal Assistance Bed PT-Transfer Assessment Sit to and From Stand Sit to and from Minimal Assistance,Use of Upper Extremities Stand Equipment Transfer Assistive Gait Belt,Front Wheeled Walker Device Transfers Transfer Destination Chair Transfer Technique Stand Step Pivot Transfer Ability Level of Assist Minimal Assistance,Use of Upper Extremities Comments Mobility Comments Pt moving very slowly with all mobility, needs a lot of extra time. Pt up to recliner with feet elevated this visit and left with needs close. Pt instructed to use call light. She is slow to advance left foot for steps but able to complete small steps, needs to use UE's for significant UE support on FWW to manage weight bearing on left LE to take small steps with right LE Gait Assessment Comments Gait Comments unable to progress to gait, only able to take a few small steps to transfer to recliner Stair Climbing Assessment Comments Stair Climbing unable this visit Comments PT-Balance Assessment Sitting Balance and Reactions Static Sitting Normal Balance Ability Dynamic Sitting Good Balance Ability Standing Balance and Reactions Static Standing Good Balance Ability Dynamic Standing Fair Balance Ability Device Used FWW M5 PT-IP Objective Assessments Start: 12/03/24 13:13 Freq: NEEDED Status: Active Protocol: Document 12/03/24 11:22 DLM (Rec: 12/03/24 13:36 DLM Desktop) Orientation Orientation/Cognition Level of Alertness Alert Orientation Name,Age,Birthday,Month,Date,Year,Day of Week,Place, Situation Language Function No Deficits Noted Ability Safety Awareness Understands Safety Issues Memory Description No Deficits Noted Comments she reports feeling goofy after surgery yesterday but better today Gross Range of Motion Upper Extremity ROM Assessment Within Functional Limits Lower Extremity ROM Assessment Left Impaired Impairments pain interferes with hip motions and knee flexion tolerance, able to sit with knee flexed to 90 degrees seated but reports painful and prefers to keep it extended Strength Upper Extremity Strength Assessment Within Functional Limits Lower Extremity Strength Assessment Left Impaired Hip needs assist to move in bed, reports pain with all movement Knee seated knee ext 2+/5 Ankle DF 5/5 Coordination Assessment Assessment Coordination mild tremor noted, pt reports it is not baseline Comments Sensation Assessment Sensation Gross Sensation WNL Muscle Tone Muscle Tone WNL Yes M6 PT-IP Treatment Start: 12/03/24 13:13 Freq: NEEDED Status: Active Protocol: Document 12/03/24 11:22 DLM (Rec: 12/03/24 13:36 DLM Desktop) Physical Therapy Treatment Exercises Exercises Ankle Pumps,Gluteal Sets Education Education Provided Weight Bearing Status,Post-Op Packet,Safety M7 PT-IP Assessment and Plan Start: 12/03/24 13:13 Freq: NEEDED Status: Active Protocol: Document 12/03/24 11:22 DLM (Rec: 12/03/24 13:36 DLM Desktop) PT Summary Assessment and Plan Potential Rehabilitation Good Potential Status of Condition Evolving at Evaluation Summary Impairments Pain,ROM,Strength,Balance,Bed Mobility,Transfers,Gait, Activity Tolerance Assessment Summary Ruth is post-op day one left femur fx with ORIF. She is progressing slowly with her mobility/gait. She was able to gradually progress from sitting edge of bed to transfer to the recliner. She is slow with all mobility . She was not able to progress to gait this visit. Noted a drop in BP with initial getting up to recliner this visit (BP 95/58 and HR 112) than improved with seated rest break (BP 105/65 and HR 101). Her nurse was notified of BP changes with activity this visit. She appears to have good rehab potential and I anticipate she will progress well with additional time and therapy . Recommend SNF rehab at discharge to help with her functional recovery including being able to ambulate functional distances and do stairs. Goals Bed Mobility Goal Independent Transfer Goal Independent,Front Wheeled Walker Gait Goal Independent,Front Wheel Walker Gait Distance 150 Other Goals Up/down 12 stairs with bilateral rails and SBA. Days to Meet Goals 10 Frequency of Treatment Frequency Of Once a Day Treatment Treatment Plan Physical Therapy Bed Mobility Training,Transfer Training,Gait Training, Treatment Plan Therapeutic Exercise,Balance Retraining,Post Op Education,Discharge Planning,Hot or Cold Pack, Neuromuscular Re-ed Precautions Other Precautions hx of falls Weight Bearing Status Weight Bearing Weight Bear as Tolerated Status Allowed Weight left femur ORIF, use FWW Bearing Amount ( enter % or #) (%) Recommendations To Nursing Amount of Assist 1 Person Assist Needed Discharge Recommendations PT Discharge SNF Rehab Recommendations Equipment Needed for FWW needed for home use Home Before Discharge Transportation Needs Private Vehicle,Wheelchair/Cabulance at Discharge - PT assist 1
[2024-12-03] MEDS: MAGNESIUM CHLORIDE 64 MG TABLET 128 MG PO (11:29)
[2024-12-03] MEDS: CALCIUM CARBONATE 500 MG TAB PO ×2 (11:29→12:55)
[2024-12-03] MEDS: OXYCODONE IR 5 MG TABLET 2.5 MG PO (12:14)
--- NOTE | 2024-12-03 12:16 | OT.IP.EVAL ---
Current Diagnoses Displaced fracture of lesser trochanter of right femur, initial encounter for closed fracture (12/02/24) Surgery Performed Operation Date: 12/02/24 16:00 Actual Procedures p Intramedullary Nailing Femur, left hip - Konrad Landeros MD Past Medical History (Last Reviewed 11/11/23 @ 14:41 by JULIA Torres) Abdominal aortic aneurysm (AAA) 3.0 cm to 5.0 cm in diameter in female Altered bowel habits Bochdalek hernia Constipation Depression with anxiety Esophageal thickening GERD (gastroesophageal reflux disease) Gross hematuria Hiatal hernia History of smoking History of UTI Hx of small bowel obstruction Lower urinary tract symptoms (LUTS) Non-compliance Obstructive defect of renal pelvis Postmenopausal atrophic vaginitis Postmenopausal atrophic vaginitis Pulmonary emphysema Pulmonary nodules/lesions, multiple Right kidney stone Right nephrolithiasis Right nephrolithiasis Tobacco use disorder Tobacco use disorder, moderate, in early remission Surgical History (Last Reviewed 11/11/23 @ 14:41 by JULIA Torres) H/O: hysterectomy History of laparoscopic cholecystectomy Occupational Therapy Inpatient Evaluation/Re-Eval M1 PT/OT-IP Prior Functional Status Start: 12/03/24 12:29 Freq: NEEDED Status: Active Protocol: Document 12/03/24 12:29 [facility] (Rec: 12/03/24 12:51 [facility] Desktop) Medical Review Prior Functional Status Communication I Mobility and Gait I Activities of Daily Completely independent with all ADL,IADL and drives. Living and IADL's Prior Functional Pt lives with her sister. Her sister lives upstairs and Level (Other details she lives downstairs. ) Social History Household Members family Living Arrangements House Number of Floors ( Two Floors Floors) Number of Stairs To One flight on steps with bilateral rails to her living Enter/Railing? area Home Environment High Toilet,Tub/Shower Additional Social Pt has had multiple falls in the past. History Comment M2 OT-IP Current Condition Start: 12/03/24 12:29 Freq: Status: Active Protocol: Document 12/03/24 12:29 [facility] (Rec: 12/03/24 12:51 [facility] Desktop) Occupational Therapy Current Condition Current Condition Evaluation Date 12/03/24 Treatment Diagnosis GLF, S/P ORIF left proximal femur Diagnosis Onset Date 12/02/24 Weight Bearing Status Weight Bearing Weight Bear as Tolerated Status M3 OT- IP Subjective and Pain Start: 06/19/25 12:29 Freq: Status: Active Protocol: Document 12/03/24 12:29 [facility] (Rec: 12/03/24 12:51 [facility] Desktop) OT- Subjective Occupational Therapy Visit Type Type Initial Evaluation Visit Start Time 11:45 Visit Stop Time 12:16 Occupational Therapy Visit Comments Patient Comments Pt agreed to work with OT. Patient/Caregiver TO get better. Goals OT Pain Assessment Pain When Pain Assessed At Rest Pain Present Pain Present Pain Reported Location Left Hip Intensity 4 Scale Used Numeric (0 - 10) M4 OT- IP ADL's Start: 12/03/24 12:29 Freq: Status: Active Protocol: Document 12/03/24 12:29 [facility] (Rec: 12/03/24 12:51 [facility] Desktop) OT QEL-Daey-Gnkhkbu General Evaluation Self-Feeding Ability Independent OT ADL-Grooming Comments OT Grooming Comments Pt states to do later after lunch. OT ADL-Oral Care Comments Oral Care Comments Pt states to perform after lunch. OT ADL-Dressing General Eval Lower Body Dressing Maximum Assistance Ability Areas Needing Socks Assistance Comments OT Dressing Comments Able to practice use of LB dressing equipment for socks . Spoke of best to dress the LLE first and take out last. OT ADL-Toileting General Evaluation Toileting Ability Total Assistance Areas Needing Empty Catheter or Colostomy Assistance Comments OT Toileting Hurtado in place. Comments OT ADL-Bathing Comments OT Bathing Comments Pt educated would benefit from HHSP, non slip mat, gar bar and tub bench for home use. M5 OT- IP IADL's Start: 12/03/24 12:29 Freq: Status: Active Protocol: Document 12/03/24 12:29 [facility] (Rec: 12/03/24 12:51 [facility] Desktop) OT-Instrumental Activities of Daily Living Deficits IADL Deficits Deficits Identified Home Safety Awareness Home Safety Comments Pt is a bit groggy at this time. Medication Management Medication Prior pt did on her own. Management Comments Money Management Money Management Prior pt was independent. Comments Meal Preparation Meal Preparation Pt would benefit from assist at this time. 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 Comments M6 OT- IP Functional Cognition Start: 12/03/24 12:29 Freq: Status: Active Protocol: Document 12/03/24 12:29 [facility] (Rec: 12/03/24 12:51 [facility] Desktop) Cognitive Factors Limiting Selfcare Function Cognitive Ability Level of Alertness Alert,Drowsy Patient Orientation Name,Place,Situation Attention Span Capable of Focused Attention,Capable of Sustained Ability Attention Ability to Follow Able to Follow One Step Commands with Increased Time, Commands Able to Follow One Step Commands with Repetition Cognitive Comments Cognitive Assessment Pt a little groggy and needing repeated vc and visual Comments cues to follow for LB dressing education. Able to give pt information of fall preventions. OT- Vision and Hearing OT- Hearing Assessment OT- Hearing Hearing Impaired Assessment OT- Vision Assessment Visual Acuity Glasses All The Time Vision Assessment Pt states does not wear her hear aids anymore. Comments M7 OT- IP Mobility and Balance Start: 12/03/24 12:29 Freq: Status: Active Protocol: Document 12/03/24 12:29 [facility] (Rec: 12/03/24 12:51 [facility] Desktop) OT-Transfer Assessment Sit to and From Stand Sit to and from Minimal Assistance Stand Comments Mobility Comments ERIK to stand to the FWW and assist to lower to the recliner. OT- Balance Assessment Sitting Balance and Reactions Static Sitting Normal Balance Ability Dynamic Sitting Good Balance Ability Standing Balance and Reactions Static Standing Fair Balance Ability M8 OT- IP Objective Assessments Start: 12/03/24 12:29 Freq: Status: Active Protocol: Document 12/03/24 12:29 [facility] (Rec: 12/03/24 12:51 [facility] Desktop) OT Gross Range of Motion Upper Extremity Range of Motion Assessment Within Functional Limits OT Strength Upper Extremity Strength Assessment Within Functional Limits OT- Coordination Assessment Upper Extremity Finger to Nose Test Within Functional Limits M9 OT- IP Assessment and Plan Start: 12/03/24 12:29 Freq: Status: Active Protocol: Document 12/03/24 12:29 [facility] (Rec: 12/03/24 12:51 [facility] Desktop) OT Summary Assessment and Plan Potential Rehabilitation Excellent Potential Analytic Complexity Low at Evaluation Summary OT Impairments Pain,Balance,Functional Mobility,Self-Feeding,Grooming, Dressing,Toileting,Bathing,Toilet Transfers,Shower Transfers,Activity Tolerance Progress Towards Slow Progress due to Pain,Slow Progress due to Medical Goals Issues Assessment Summary Pt low complexity and main barriers are pain, groggy, steps, and needing repeated instructions for ADL education and mobility needs. Pt has a flight of steps at home and at this time pt will greatly benefit from skilled rehab. Pt is very motivated and cooperative. Goals Self-Feeding Goal Independent Grooming Goal Independent Dressing Goal Independent,Corporate Intern,Sock Aid Toileting Goal Independent Bathing Goal Minimal Assistance Toilet Transfer Goal Independent Shower Transfer Goal Standby Assistance Days to Meet Goals 15 Frequency of Treatment Other frequency 5x/week Treatment Plan OT Treatment Plan ADL Training,Functional Mobility,Patient/Family Education,Discharge Planning Discharge Recommendations OT Discharge SNF Rehab Recommendations Home Equipment Needs Tub bench, HHSP, BSC, FWW Transportation Needs Wheelchair/Cabulance at Discharge
--- NOTE | 2024-12-03 13:11 | CM.DANOTE ---
Initial DCP Assessment Visit Note Reviewed EMR and team rounds for pt's medical status and updates. Met with pt at bedside and introduced self and role. Pt was found to be alert/oriented, working with PT at the time of this visit. Pt resides independently with her sister in their own home here in [place]. She will need SNF rehab, preference is [facility]. Facility will transport at time of d/c. Will need a [facility] Auth. Payor: [facility] Adv PCP: Dr. Jaime Pt is a 74 year-old F who presented to the ED via EMS after she fell and hit her left hip on a table, after which she was unable to bear weight and had severe L-hip pain. CT/Pelvis showed a displaced L-femur fracture. Ortho was consulted, and pt was brought to surgery for fixation yesterday afternoon. She is doing well postoperatively, however she will not be able to navigate the large flight of stairs that she will need to descend in order to get to the lower level of the home, where her bedroom is. Will send clinicals to [facility] once therapy eval notes are completed, she will need an auth. Discharge Planning/Care Management CM Discharge Assessment Start: 12/02/24 12:05 Freq: Status: Active Protocol: Document 12/03/24 13:09 [facility] (Rec: 12/03/24 13:11 [facility] [id number]) Discharge Planning Assessment Advance Directives? No History Provided By Patient,Medical Record Prior Living House Arrangements Household Members family Type of Drives own vehicle transporation used prior to admit Independent with ADL Yes 's Is patient alert and Yes oriented? Caregiver for No Another Patient/Family Detention Facility Preference Barriers to No Discharge Discharge Plan Detention Facility Transportation Facility Arrangement If patient plan is No SNF: Has PASSR been completed? Medicare Choice List Yes Provided Medicare choice list patient reviewed on electronic tablet with SNF/HH Preference [facility] Has Agency SNF been No contacted Whiteboard Updated Yes in Patient Room with name and ext. # of Appliance Tester Review Status In Process Please Provide Date 12/03/24 Initial DC Assessment Was Performed
[2024-12-03 14:20] LABS: Appearance Urine UA CLEAR; Bilirubin Urine UA NEGATIVE (NEGATIVE); Color Urine UA YELLOW; Glucose Urine UA NEGATIVE (Negative); Ketones Urine UA NEGATIVE (NEGATIVE); Leukocyte Esterase Urine UA NEGATIVE (NEGATIVE); Nitrite Urine UA NEGATIVE (Negative); Occult Blood Urine UA NEGATIVE (Negative); Protein Urine UA NEGATIVE (Negative); Specific Gravity Urine UA <=1.005 (1.000-1.035); Urobilinogen Urine UA 0.2 E.U./dL (0.2)
[2024-12-03 14:29] LABS: Amorphous Sediment Urine 1+; Bacteria Urine Occasional (0-1); Culture Indicated Urine Cult Not Indicated; RBC Urine None Seen (0-5/HPF); Squamous Epithelial Cell Urine 0-1 /HPF (0-5/HPF); Urine Volume 10mL (spun); WBC Urine 0-1/HPF (0-5/HPF)
[2024-12-03] MEDS: OXYCODONE IR 5 MG TABLET PO (16:11)
--- NOTE | 2024-12-03 18:40 | PM.PNPO.1 ---
Subjective Subjective Date Patient Seen: 12/03/24 Time Patient Seen: 14:00 Interval history: ID: 74yo F s/p ORIF of the LEFT proximal femur fracture on 12/02/24 S: Reports that she is feeling surprisingly better than she thought she would. Mild to moderate pain along her lateral thigh. Tolerating PO. Denies F/C/NS/CP/SOB. Talked about standing up and sitting in a chair today. Exam Vital Signs (past 8 hours): - 12/03/24 11:55 12/03/24 13:58 12/03/24 16:00 Pulse Rate 97 H Respiratory Rate 16 Pulse Oximetry 99 98 98 Oxygen Delivery Method Room Air Room Air Room Air Oxygen Flow Rate 0 0 Oxygen Delivery Method Room Air Oxygen Flow Rate 0 Narrative Exam Narrative: LEFT Hip: Inspection: Dressings in place. Strikethrough noted on the large dressing ROM: Deferred Neurovascular exam: Fires q/h/ta/gc/ehl; SILT s/s/sp/dp/t, 2+ dp Objective Labs 12/03/24 05:50 12/03/24 05:50 Labs: Laboratory Results - last 24 hr 12/02/24 12/03/24 12/03/24 21:59 05:50 12:57 WBC 14.0 H D RBC 3.21 L Hgb 11.5 L 9.9 L Hct 35.0 L 29.1 L MCV 90.7 MCH 30.7 MCHC 33.9 RDW 14.1 Plt Count 237 Neut % (Auto) 89.2 H D Lymph % (Auto) 5.1 L [place] % (Auto) 5.7 Eos % (Auto) 0.0 L Baso % (Auto) 0.0 Neut # (Auto) 48029 H Lymph # (Auto) 700 L [place] # (Auto) 800 Eos # (Auto) 0 Baso # (Auto) 0 Sodium 133 L Potassium 3.6 Chloride 101 Carbon Dioxide 21 L BUN 14 Creatinine 0.77 Estimated GFR > 60 BUN/Creatinine Ratio 18.2 Glucose 143 H Calcium 8.5 Magnesium 1.6 Urine Color Yellow Urine Appearance Clear Urine pH 6.0 Ur Specific Exline <=1.005 Urine Protein Negative Urine Glucose (UA) Negative Urine Ketones Negative Urine Occult Blood Negative Urine Nitrate Negative Urine Bilirubin Negative Urine Urobilinogen 0.2 Ur Leukocyte Esterase Negative Urine RBC None seen Urine WBC 0-1/hpf Ur Squamous Epith Cells 0-1 /hpf Amorphous Sediment 1+ Urine Bacteria Occasional (0-1) Ur Culture Indicated? Cult not indicated Vol Urine Centrifuged 10ml (spun) PFSH Medical History Tobacco use disorder, moderate, in early remission History of smoking Constipation Esophageal thickening Bochdalek hernia Hiatal hernia Pulmonary emphysema Pulmonary nodules/lesions, multiple Abdominal aortic aneurysm (AAA) 3.0 cm to 5.0 cm in diameter in female Tobacco use disorder Postmenopausal atrophic vaginitis Right nephrolithiasis Gross hematuria Altered bowel habits GERD (gastroesophageal reflux disease) Lower urinary tract symptoms (LUTS) Postmenopausal atrophic vaginitis Right nephrolithiasis History of UTI Right kidney stone Obstructive defect of renal pelvis Non-compliance Depression with anxiety Hx of small bowel obstruction Surgical History History of laparoscopic cholecystectomy H/O: hysterectomy Family History Father Hearing impairment UTI (urinary tract infection) Kidney stones Social History household members: family Smoking Status: Former smoker quit status: considering quitting second hand exposure: No alcohol intake: current substance use type: does not use Assessment & Plan Post-op Postoperative Procedures: Procedures Operation Date: 12/02/24 16:00 Actual Procedure Side Surgeon p Intramedullary Nailing Femur, left hip Konrad Landeros MD Postoperative day: 1 Postoperative status: doing well Postoperative status narrative: 74yo F s/p ORIF of the LEFT proximal femur fracture on 12/02/24. Doing well. Worked with PT today and pain is well managed. -Admission to (appreciate their help with this patient) -IV and Oral pain meds as needed -ASA daily for DVT prophylaxis -PT/OT consult -WBAT on the LLE -Will follow up with Ortho as an outpt in 2 weeks Konrad Landeros MD Ortho Time Spent With Patient Time with patient: 15-24 minutes Quality VTE Deep Vein Thrombosis/Pulmonary Embolism Present on Admission: No
[2024-12-03] MEDS: SENNOSIDES 8.6 MG TABLET 17.2 MG PO (21:06)
[2024-12-03] MEDS: ASPIRIN EC 81 MG TABLET PO (21:07)
[2024-12-03] MEDS: SODIUM CHLORIDE 0.9% FLUSH 10 ML IV (21:07)
[2024-12-04] VITALS (7 sets, daily range): BP systolic 106–119; BP diastolic 55–62; PULSE 101–103; RESP 12–17; TEMP 36.3; O2SAT 93–99
[2024-12-04] MEDS: OXYCODONE IR 5 MG TABLET PO ×4 (01:54→23:30)
[2024-12-04] MEDS: PANTOPRAZOLE DR 20 MG TABLET PO ×2 (05:42→16:40)
[2024-12-04 06:17] LABS: Add Manual Diff / Slide Review NO; Basophils Absolute Auto 0 /uL (0-100); Basophils Percent Auto 0.2 % (0-2); Eosinophils Absolute Auto 0 /uL (0-450); Eosinophils Percent Auto 0.2 % (2-4); Hematocrit 24.6 % (36-46); Hemoglobin 8.5 g/dL (12.0-16.0); Lymphocytes Absolute Auto 1200 /uL (1100-4500); Lymphocytes Percent Auto 11.1 % (25-40); Mean Corpuscular HGB Conc 34.6 % (30-36); Mean Corpuscular Hemoglobin 31.3 PG (26-34); Mean Corpuscular Volume 90.5 fL (80-100); Monocytes Absolute Auto 800 /uL (0-900); Monocytes Percent Auto 7.1 % (3-14); Neutrophils Absolute Auto 8800 /uL (1500-7000); Neutrophils Percent Auto 81.4 % (50-75); Platelet Count 210 X10^3/uL (150-400); Red Blood Cell Count 2.71 X10^6/uL (4.0-5.2); Red Cell Distribution Width 13.8 % (11.6-14.8); White Blood Cell Count 10.9 X10^3/uL (4.5-11.0)
[2024-12-04 06:27] LABS: BUN Creatinine Ratio 18.6 (6-22); Blood Urea Nitrogen 16 mg/dL (7-17); Calcium 8.7 mg/dL (8.4-10.2); Carbon Dioxide 26 mmol/L (22-32); Chloride 104 mmol/L (98-107); Estimated Glomerular Filt Rate > 60 mL/min (>60); Glucose 100 mg/dL (70-99); HEMOLYSIS < 15 (0-50); Magnesium 2.1 mg/dL (1.6-2.3); Potassium 3.7 mmol/L (3.4-5.1); Sodium 137 mmol/L (137-145)
--- NOTE | 2024-12-04 08:01 | P.PN_ITS ---
Subjective Subjective Date Patient Seen: 12/04/24 Time Patient Seen: 08:01 Interval history: Ruth is a pleasant 74 year old female who is POD#2 s/p L femur fracture ORIF w/ IM maggie by Dr. Chen. This morning she reports that she is doing well, having minimal pain at rest and moderate-severe pain w/ ambulating, pain is worse today than yesterday. Pain has been controlled w/ Oxycodone 5mg and Tylenol PRN. She reports that she was able to work w/ PT yesterday and transfer to her bedside chair w/ the use of her walker. Denies fever, chills, chest pain, SOB or feelings of dizzness or lightheadedness. She does endorse feeling loopy from the Oxycodone. Exam Vital Signs (past 8 hours): - 12/04/24 04:00 Pulse Oximetry 96 Oxygen Delivery Method Room Air Oxygen Delivery Method Room Air Oxygen Flow Rate 0 Narrative Exam Narrative: Patient lying comfortably in bed during our interview today. No acute distress. Slightly lethargic but able to carry a conversation well. Grossly normal alignment of the LLE with moderate swelling throughout the left thigh. TTP along the proximal incision site. 5/5 strength with DF, PF, EHL bilaterally. Gross sensation intact throughout bilateral lower extremities. Calves soft and non-tender bilaterally. SCDs are on and functioning. Left thigh is soft and compressible. Post-surgical dressing/Aquacel dressing clean, dry and intact over the left hip with a small area of bloody drainage distally that has been marked after surgery and has not progressedin size. Small dressing over the distal incision site is clean, dry and intact without drainainge. Const General: cooperative Objective Labs 12/04/24 06:06 12/04/24 06:06 Labs: Laboratory Results - last 24 hr 12/03/24 12/04/24 12:57 06:06 WBC 10.9 RBC 2.71 L Hgb 8.5 L Hct 24.6 L MCV 90.5 MCH 31.3 MCHC 34.6 RDW 13.8 Plt Count 210 Neut % (Auto) 81.4 H Lymph % (Auto) 11.1 L [place] % (Auto) 7.1 Eos % (Auto) 0.2 L Baso % (Auto) 0.2 Neut # (Auto) 8800 H Lymph # (Auto) 1200 [place] # (Auto) 800 Eos # (Auto) 0 Baso # (Auto) 0 Sodium 137 Potassium 3.7 Chloride 104 Carbon Dioxide 26 BUN 16 Creatinine 0.86 Estimated GFR > 60 BUN/Creatinine Ratio 18.6 Glucose 100 H Calcium 8.7 Magnesium 2.1 Urine Color Yellow Urine Appearance Clear Urine pH 6.0 Ur Specific [place] <=1.005 Urine Protein Negative Urine Glucose (UA) Negative Urine Ketones Negative Urine Occult Blood Negative Urine Nitrate Negative Urine Bilirubin Negative Urine Urobilinogen 0.2 Ur Leukocyte Esterase Negative Urine RBC None seen Urine WBC 0-1/hpf Ur Squamous Epith Cells 0-1 /hpf Amorphous Sediment 1+ Urine Bacteria Occasional (0-1) Ur Culture Indicated? Cult not indicated Vol Urine Centrifuged 10ml (spun) PFSH Medical History Abdominal aortic aneurysm (AAA) 3.0 cm to 5.0 cm in diameter in female Altered bowel habits Bochdalek hernia Constipation Depression with anxiety Esophageal thickening GERD (gastroesophageal reflux disease) Gross hematuria Hiatal hernia History of smoking History of UTI Hx of small bowel obstruction Lower urinary tract symptoms (LUTS) Non-compliance Obstructive defect of renal pelvis Postmenopausal atrophic vaginitis Postmenopausal atrophic vaginitis Pulmonary emphysema Pulmonary nodules/lesions, multiple Right kidney stone Right nephrolithiasis Right nephrolithiasis Tobacco use disorder Tobacco use disorder, moderate, in early remission Surgical History H/O: hysterectomy History of laparoscopic cholecystectomy Family History Father Hearing impairment UTI (urinary tract infection) Kidney stones Social History household members: family quit status: considering quitting second hand exposure: No alcohol intake: current substance use type: does not use Assessment & Plan Post-op Postoperative Procedures: Procedures Operation Date: 12/02/24 16:00 Actual Procedure Side Surgeon p Intramedullary Nailing Femur, left hip Konrad Landeros MD Postoperative day: 2 Postoperative status: doing well Postoperative plan: routine post-op care Postoperative plan narrative: Patient is post-op recovery is within normal limits. 1) Discharge disposition per Medicine. Will continue to monitor H&H. 2) Continue multimodal pain management with ice to the knee/hip for additional pain control. 3) Recommend ASA b.i.d. for DVT prophylaxis for 6 weeks. 4) Continue to work w/ PT to improve mobility. Recommend continued outpatient physical therapy upon discharge. WBAT. 5) Keep dressing intact, clean, dry until 2 week postop appointment at [facility]. No soaking the incision site in pools or tubs. No topical ointments or creams to the incision site. 6) Follow up at [facility] in 2 weeks for a postop appointment, wound check and staple removal. All patient's questions were answered, she demonstrates understanding and is in agreement with the plan. Call our office if any questions or concerns arise. Orthopedics will sign off for now, please re-consult if any additional concerns or questions arise. Time Spent With Patient Time with patient: less than 15 minutes Quality VTE Deep Vein Thrombosis/Pulmonary Embolism Present on Admission: No
[2024-12-04] MEDS: polyethylene glycoL 3350 17 GM POWD.PACK PO (09:33)
--- NOTE | 2024-12-04 09:33 | OT.IP.TRT ---
Current Diagnoses Displaced fracture of lesser trochanter of right femur, initial encounter for closed fracture (12/02/24) Surgery Performed Operation Date: 12/02/24 16:00 Actual Procedures p Intramedullary Nailing Femur, left hip - Konrad Landeros MD Occupational Therapy Treatment Note M2 OT-IP Current Condition Start: 12/03/24 12:29 Freq: Status: Active Protocol: Document 12/03/24 12:29 [facility] (Rec: 12/03/24 12:51 [facility] Desktop) Occupational Therapy Current Condition Current Condition Evaluation Date 12/03/24 Treatment Diagnosis GLF, S/P ORIF left proximal femur Diagnosis Onset Date 12/02/24 Weight Bearing Status Weight Bearing Weight Bear as Tolerated Status M3 OT- IP Subjective and Pain Start: 12/03/24 12:29 Freq: Status: Active Protocol: Document 12/04/24 09:33 [facility] (Rec: 12/04/24 09:39 [facility] Desktop) OT- Subjective Occupational Therapy Visit Type Type Treatment Note Visit Start Time 09:05 Visit Stop Time 09:33 Occupational Therapy Visit Comments Patient Comments Pt wanting to brush her teeth. Patient/Caregiver To get better. Goals OT Pain Assessment Pain When Pain Assessed During Mobility Pain Present Pain Present Pain Reported Location Left Hip Intensity 7 Scale Used Numeric (0 - 10) M4 OT- IP ADL's Start: 12/03/24 12:29 Freq: Status: Active Protocol: Document 12/04/24 09:33 [facility] (Rec: 12/04/24 09:39 [facility] Desktop) OT [id number]-Sjzbceu General Evaluation Self-Feeding Ability Independent OT ADL-Grooming General Evaluation Areas Needing Retrieving/Set-up of Grooming Items Assistance Comments OT Grooming Comments While seated on the EOB. OT ADL-Oral Care General Eval Oral Care Ability Independent OT ADL-Dressing General Eval Lower Body Dressing Maximum Assistance Ability Areas Needing Socks Assistance OT ADL-Toileting Comments OT Toileting Pt just used the BSC with nursing prior. Comments M5 OT- IP IADL's Start: 12/03/24 12:29 Freq: Status: Active Protocol: Document 12/03/24 12:29 [facility] (Rec: 12/03/24 12:51 [facility] Desktop) OT-Instrumental Activities of Daily Living Deficits IADL Deficits Deficits Identified Home Safety Awareness Home Safety Comments Pt is a bit groggy at this time. Medication Management Medication Prior pt did on her own. Management Comments Money Management Money Management Prior pt was independent. Comments Meal Preparation Meal Preparation Pt would benefit from assist at this time. Comments Game Manager Game Manager Pt will need help. Comments M6 OT- IP Functional Cognition Start: 12/03/24 12:29 Freq: Status: Active Protocol: Document 12/04/24 09:33 [facility] (Rec: 12/04/24 09:39 [facility] Desktop) Cognitive Factors Limiting Selfcare Function Cognitive Ability Level of Alertness Alert,Drowsy Attention Span Capable of Focused Attention,Capable of Sustained Ability Attention Ability to Follow Able to Follow One Step Commands with Increased Time, Commands Able to Follow One Step Commands with Repetition Cognitive Comments Cognitive Assessment Pt more groggy today and needing step by step to follow Comments . Pt states having to take more pain meds and feels groggy from the meds. M7 OT- IP Mobility and Balance Start: 12/03/24 12:29 Freq: Status: Active Protocol: Document 12/04/24 09:33 [facility] (Rec: 12/04/24 09:39 [facility] Desktop) OT- Bed Mobility Assessment Sit to Supine Sit to Supine Assist Maximum Assistance,1 Person Assistance OT-Transfer Assessment Sit to and From Stand Sit to and from Moderate Assistance Stand Comments Mobility Comments Having to help support her BLE L> RLE so able to use her arms on the bed to help scoot her hips back in bed so able to get back into supine. Pt's BUE tiring and needing rest breaks during the task from sit to supine. Pt vc to keep her LLE closer and no so wide apart and to tuck her RLE underneath so better able to come to stand to the FWW. MODA to stand to the FWW. MODA to take shuffling steps to the head of the bed with assist for balance and guidance of the FWW. BP siting 106/63 and standing 95/53, pt states feeling tired. OT- Balance Assessment Sitting Balance and Reactions Static Sitting Normal Balance Ability Dynamic Sitting Good Balance Ability Standing Balance and Reactions Static Standing Fair Balance Ability Dynamic Standing Poor Balance Ability M8 OT- IP Objective Assessments Start: 12/03/24 12:29 Freq: Status: Active Protocol: Document 12/03/24 12:29 [facility] (Rec: 12/03/24 12:51 [facility] Desktop) OT Gross Range of Motion Upper Extremity Range of Motion Assessment Within Functional Limits OT Strength Upper Extremity Strength Assessment Within Functional Limits OT- Coordination Assessment Upper Extremity Finger to Nose Test Within Functional Limits M9 OT- IP Assessment and Plan Start: 12/03/24 12:29 Freq: Status: Active Protocol: Document 12/04/24 09:33 [facility] (Rec: 12/04/24 09:39 [facility] Desktop) OT Summary Assessment and Plan Potential Rehabilitation Excellent Potential Analytic Complexity Low at Evaluation Summary OT Impairments Pain,Balance,Functional Mobility,Self-Feeding,Grooming, Dressing,Toileting,Bathing,Toilet Transfers,Shower Transfers,Activity Tolerance Progress Towards Progressing Toward Goals,Slow Progress due to Pain Goals Assessment Summary Pt in more pain today. Pt needing MAXA for bed mobility needs and MODA to help stand to the FWW. Pt better able to keep her LLE down while seated today to brush her teeth while seated on the EOB. Pt to go to skilled rehab when medically stable. Goals Self-Feeding Goal Independent Grooming Goal Independent Dressing Goal Independent,Floor Coverer,Sock Aid Toileting Goal Independent Bathing Goal Minimal Assistance Toilet Transfer Goal Independent Shower Transfer Goal Standby Assistance Days to Meet Goals 14 Frequency of Treatment Other frequency 5x/week Treatment Plan OT Treatment Plan ADL Training,Functional Mobility,Patient/Family Education,Discharge Planning Discharge Recommendations OT Discharge SNF Rehab Recommendations Home Equipment Needs Tub bench, HHSP, BSC, FWW Transportation Needs Wheelchair/Cabulance at Discharge
[2024-12-04] MEDS: ASPIRIN EC 81 MG TABLET PO (09:34)
[2024-12-04] MEDS: ACETAMINOPHEN 325 MG TABLET 650 MG PO ×3 (09:34→21:06)
[2024-12-04] MEDS: DOCUSATE 100 MG CAPSULE PO ×2 (09:34→21:06)
[2024-12-04] MEDS: PARoxetine 20 MG TABLET PO (09:35)
[2024-12-04] MEDS: SODIUM CHLORIDE 0.9% FLUSH 10 ML IV ×2 (09:59→21:06)
--- NOTE | 2024-12-04 10:30 | PT.IPTN ---
Current Diagnoses Displaced fracture of lesser trochanter of right femur, initial encounter for closed fracture (12/02/24) Surgery Performed Operation Date: 12/02/24 16:00 Actual Procedures p Intramedullary Nailing Femur, left hip - Konrad Landeros MD Physical Therapy Treatment Note M2 PT-IP Current Condition Start: 12/03/24 13:13 Freq: NEEDED Status: Active Protocol: Document 12/03/24 11:22 [facility] (Rec: 12/03/24 13:36 [facility] Desktop) Physical Therapy Current Condition Current Condition Evaluation Date 12/03/24 Treatment Diagnosis fall, left femur fx, ORIF Onset Date 12/02/24 M3 PT-IP Subjective Start: 12/03/24 13:13 Freq: NEEDED Status: Active Protocol: Document 12/04/24 10:30 AB (Rec: 12/04/24 12:59 AB [id number]) Subjective Physical Therapy Visit Type Type Treatment Note Visit Start Time 10:30 Visit Stop Time 11:05 Number of REDEVELOPMENT MANAGER Visits 0 Physical Therapy Visit Comments Patient Comments agreeable to do PT Therapy Pain Assessment Pain When Pain Assessed At Rest Pain Present Pain Present Pain Reported Location Left Hip Intensity 6 Scale Used Numeric (0 - 10) Pain Behaviors Guarding,Wincing Pain Management Apply Cold,Distraction,Modification of Treatment,Re- Techniques positioning,Timing of Activity with Medications M4 PT-IP Mobility and Gait Start: 12/03/24 13:13 Freq: NEEDED Status: Active Protocol: Document 12/04/24 10:30 AB (Rec: 12/04/24 12:59 AB [id number]) PT-Bed Mobility Assessment Supine to Sit Supine to Sit Minimal Assistance PT-Transfer Assessment Sit to and From Stand Sit to and from Maximum Assistance,1 Person Assistance,Use of Upper Stand Extremities Equipment Transfer Assistive Gait Belt,Front Wheeled Walker Device Orthotic/Prosthetic No Devices or Brace: Transfers Transfer Destination Chair Transfer Technique ambulated Transfer Ability Level of Assist Maximum Assistance,1 Person Assistance,Use of Upper Extremities Comments Mobility Comments pt in bed and agreeable to do PT. completed heels slides PROM-AAROM on LLE. completed supine to sit min A and cues. able to sit on EOB SBA. sit to stand max A and max cues. pt ambulated ~ 8 ft using FWW max A and cues. required assist and cues for L quads activation, weight shifting and assist with LE elevation and advancement. pt sat on chair. positioned pt on the chair. call light and table placed within reach. Left pt with family in room. Gait Assessment Gait Gait Assistance Maximum Assistance Required: Distance (Feet) 4 Able to Maintain Yes Weight Bearing Status During Gait Assistive Devices Assistive Device Gait Belt,Front Wheeled Walker Orthotic/Prosthetic No Devices or Brace: Gait Deviations General Gait Pattern Antalgic,Decreased Stride Length,Decreased Feet Clearance Factors Limiting Gait Function Factors Limiting Decreased Activity Tolerance,Decreased Strength, Gait Function Difficulty Following Directions,Limited Range of Motion ,Pain,Poor Balance,Poor Safety Awareness M5 PT-IP Objective Assessments Start: 12/03/24 13:13 Freq: NEEDED Status: Active Protocol: Document 12/03/24 11:22 [facility] (Rec: 12/03/24 13:36 [facility] Desktop) Orientation Orientation/Cognition Level of Alertness Alert Orientation Name,Age,Birthday,Month,Date,Year,Day of Week,Place, Situation Language Function No Deficits Noted Ability Safety Awareness Understands Safety Issues Memory Description No Deficits Noted Comments she reports feeling goofy after surgery yesterday but better today Gross Range of Motion Upper Extremity ROM Assessment Within Functional Limits Lower Extremity ROM Assessment Left Impaired Impairments pain interferes with hip motions and knee flexion tolerance, able to sit with knee flexed to 90 degrees seated but reports painful and prefers to keep it extended Strength Upper Extremity Strength Assessment Within Functional Limits Lower Extremity Strength Assessment Left Impaired Hip needs assist to move in bed, reports pain with all movement Knee seated knee ext 2+/5 Ankle DF 5/5 Coordination Assessment Assessment Coordination mild tremor noted, pt reports it is not baseline Comments Sensation Assessment Sensation Gross Sensation WNL Muscle Tone Muscle Tone WNL Yes M6 PT-IP Treatment Start: 12/03/24 13:13 Freq: NEEDED Status: Active Protocol: Document 12/04/24 10:30 AB (Rec: 12/04/24 12:59 AB [id number]) Physical Therapy Treatment Exercises Exercises Heel Slides Education Education Provided Safety M7 PT-IP Assessment and Plan Start: 12/03/24 13:13 Freq: NEEDED Status: Active Protocol: Document 12/04/24 10:30 AB (Rec: 12/04/24 12:59 AB [id number]) PT Summary Assessment and Plan Potential Rehabilitation Fair Potential Summary Impairments Pain,ROM,Strength,Balance,Coordination,Sensation,Tone, Cognition,Bed Mobility,Transfers,Gait,Activity Tolerance Progress Towards Slow Progress due to Pain,Slow Progress due to Activity Goals Tolerance Assessment Summary pt requiring max A for transfers and ambulation using FWW and only able to walk ~ 8 ft at this time. pt will require 24/7 assist and will benefit from SNF rehab. Goals Bed Mobility Goal Independent Transfer Goal Independent,Front Wheeled Walker Gait Goal Independent,Front Wheel Walker Gait Distance 150 Other Goals Up/down 12 stairs with bilateral rails and SBA. Days to Meet Goals 10 Frequency of Treatment Frequency Of Once a Day Treatment Other frequency 1-2x/day Treatment Plan Physical Therapy Bed Mobility Training,Transfer Training,Gait Training, Treatment Plan Therapeutic Exercise,Balance Retraining,Post Op Education,Discharge Planning,Hot or Cold Pack, Neuromuscular Re-ed Precautions Other Precautions hx of falls Weight Bearing Status Weight Bearing Weight Bear as Tolerated Status Allowed Weight left femur ORIF, use FWW Bearing Amount ( enter % or #) (%) Recommendations To Nursing Amount of Assist 1 Person Assist Needed Discharge Recommendations PT Discharge SNF Rehab Recommendations Equipment Needed for FWW needed for home use Home Before Discharge Transportation Needs Private Vehicle,Wheelchair/Cabulance at Discharge - PT assist 1
--- NOTE | 2024-12-04 11:48 | PM.PN.IH.1 ---
Subjective Subjective Date Patient Seen: 12/04/24 Time Patient Seen: 10:02 Interval history: 74 F admitted with L proximal femur fracture, s/p ORIF of left femur 12/02 with nail placement. Pain is tolerable but increased this morning, controlled with oral medication. No chest pain, shortness of breath, or nausea today. Exam Vital Signs (past 8 hours): - 12/04/24 04:00 12/04/24 08:00 12/04/24 08:00 Temperature 97.3 F L Pulse Rate 101 H Respiratory Rate 12 Blood Pressure 106/55 L Pulse Oximetry 96 93 99 Oxygen Delivery Method Room Air Room Air Oxygen Flow Rate 0 0 Oxygen Delivery Method Room Air Oxygen Flow Rate 0 Narrative Exam Narrative: General:? Patient is well developed and well nourished, in no distress at this time. Lungs:? CTA b/l no wheezing rhonchi or rales. Cardio:?RRR no m/r/g. Abdomen: S NT ND. Extremities: No edema or joint effusions. No cyanosis or clubbing. Objective Labs 12/04/24 06:06 12/04/24 06:06 Labs: Laboratory Results - last 24 hr 12/03/24 12/04/24 12:57 06:06 WBC 10.9 RBC 2.71 L Hgb 8.5 L Hct 24.6 L MCV 90.5 MCH 31.3 MCHC 34.6 RDW 13.8 Plt Count 210 Neut % (Auto) 81.4 H Lymph % (Auto) 11.1 L [place] % (Auto) 7.1 Eos % (Auto) 0.2 L Baso % (Auto) 0.2 Neut # (Auto) 8800 H Lymph # (Auto) 1200 [place] # (Auto) 800 Eos # (Auto) 0 Baso # (Auto) 0 Sodium 137 Potassium 3.7 Chloride 104 Carbon Dioxide 26 BUN 16 Creatinine 0.86 Estimated GFR > 60 BUN/Creatinine Ratio 18.6 Glucose 100 H Calcium 8.7 Magnesium 2.1 Urine Color Yellow Urine Appearance Clear Urine pH 6.0 Ur Specific [place] <=1.005 Urine Protein Negative Urine Glucose (UA) Negative Urine Ketones Negative Urine Occult Blood Negative Urine Nitrate Negative Urine Bilirubin Negative Urine Urobilinogen 0.2 Ur Leukocyte Esterase Negative Urine RBC None seen Urine WBC 0-1/hpf Ur Squamous Epith Cells 0-1 /hpf Amorphous Sediment 1+ Urine Bacteria Occasional (0-1) Ur Culture Indicated? Cult not indicated Vol Urine Centrifuged 10ml (spun) PFSH Medical History Abdominal aortic aneurysm (AAA) 3.0 cm to 5.0 cm in diameter in female Altered bowel habits Bochdalek hernia Constipation Depression with anxiety Esophageal thickening GERD (gastroesophageal reflux disease) Gross hematuria Hiatal hernia History of smoking History of UTI Hx of small bowel obstruction Lower urinary tract symptoms (LUTS) Non-compliance Obstructive defect of renal pelvis Postmenopausal atrophic vaginitis Postmenopausal atrophic vaginitis Pulmonary emphysema Pulmonary nodules/lesions, multiple Right kidney stone Right nephrolithiasis Right nephrolithiasis Tobacco use disorder Tobacco use disorder, moderate, in early remission Surgical History H/O: hysterectomy History of laparoscopic cholecystectomy Family History Father Hearing impairment UTI (urinary tract infection) Kidney stones Social History household members: family quit status: considering quitting second hand exposure: No alcohol intake: current substance use type: does not use Assessment & Plan Assessment & Plan narrative: 1. Left displaced proximal femur fracture, pathologic, present on admission - s/p ORIF of L femur with nail placement on 12/02. - PT/OT - as needed pain control with opiates for now prior to OR. Patient reports previous intolerance of several opiates, continue oxycodone 5mg q3 prn 2. GERD/hiatal hernia - continue home PPI BID 3. HLD - continue statin 4. Chronic joint pain - continue home paroxetine Code: Full, surrogate is patient's daughter DVT: Lovenox 40mg/d for 6 weeks (preferred over aspirin given high risk patient with low risk of bleeding, changed on 12/04) Dispo: Patient admitted under inpatient status. Discharge to SNF planned. Quality VTE Deep Vein Thrombosis/Pulmonary Embolism Present on Admission: No [facility] PROFEE Food Service Utility Worker Document charge(s): No Charge Codes Subsequent inpatient/observation care: [id number]
[2024-12-04] MEDS: ENOXAPARIN 40 MG/0.4 ML SYRINGE SUBCUT (12:26)
--- NOTE | 2024-12-04 13:11 | CM.DPNOTE ---
Addendum entered by SRIKANTH Hines 12/04/24 15:22: [facility] Update: DCP spoke with [employer] Mayra RYAN. She reports that pt has been authorized by [employer] for SNF Rehab admission. Auth # [id number]. VAP forwarded this information to [facility] admissions. Plan: Anticipating dc to [facility] on 12/05 at 1130 via their facility van. CM team following for coordination. STEPH Naranjo Original Note: DCP Continued: Reviewed EMR and team rounds for pt?s medical status. Per hospitalist, recommending SNF if PT/OT evaluations agree. Pt is medically cleared to discharge to SNF when available. Per PT/OT evaluations, recommending SNF. Pt preference is [facility], DCP spoke with Admissions at [facility]. It is reported that pt will be reviewed if all clinicals sent - will need insurance authorization from pt [employer]. VAP sent all appropriate clinicals to [facility] Admissions. Pt slotted for transfer on Saturday, 12/05 at 1330 via their facility van. [facility] called Tariq and Michel Nunez Associate Director Of Biostatistics for authorization, left a message for both. Also re-sent PT/OT evaluations to [facility] via fax. 1310: STEPHANIE able to speak with Michel Nunez Design Architect (ph# [phone]) who states her MD is reviewing pt for authorization, she will call with auth number when obtained either this afternoon or tomorrow morning, 12/05. [facility] notified [facility] that pt has a slot at [facility] on 12/05 at 1330. VAP notified hospitalist of possible transport time and noted on patient status board. [facility] initated, need MD signature for hospital exempt discharge for Paxil 20mg daily Rx managed by PCP. Plan: Anticipating dc to [facility] on 12/05 at 1130 via their facility van (still pending [employer] authorization). CM Team will continue to follow for coordination of discharge plans. STEPH Naranjo
--- NOTE | 2024-12-04 15:25 | PT.IPTN ---
Current Diagnoses Displaced fracture of lesser trochanter of right femur, initial encounter for closed fracture (12/02/24) Surgery Performed Operation Date: 12/02/24 16:00 Actual Procedures p Intramedullary Nailing Femur, left hip - Konrad Landeros MD Physical Therapy Treatment Note M2 PT-IP Current Condition Start: 12/03/24 13:13 Freq: NEEDED Status: Active Protocol: Document 12/03/24 11:22 DLM (Rec: 12/03/24 13:36 DLM Desktop) Physical Therapy Current Condition Current Condition Evaluation Date 12/03/24 Treatment Diagnosis fall, left femur fx, ORIF Onset Date 12/02/24 M3 PT-IP Subjective Start: 12/03/24 13:13 Freq: NEEDED Status: Active Protocol: Document 12/04/24 15:25 AB (Rec: 12/04/24 16:08 AB [id number]) Subjective Physical Therapy Visit Type Type Treatment Note Visit Start Time 15:25 Visit Stop Time 16:00 Number of SENIOR SECURITY ENGINEER Visits 0 Physical Therapy Visit Comments Patient Comments agreeable to do PT Therapy Pain Assessment Pain When Pain Assessed At Rest Pain Present Pain Present Pain Reported Location Left Hip Scale Used pain scale not stated Description Radiating Pain Behaviors Guarding Pain Management Apply Cold,Distraction,Modification of Treatment,Re- Techniques positioning,Timing of Activity with Medications M4 PT-IP Mobility and Gait Start: 12/03/24 13:13 Freq: NEEDED Status: Active Protocol: Document 12/04/24 15:25 AB (Rec: 12/04/24 16:08 AB [id number]) PT-Bed Mobility Assessment Supine to Sit Supine to Sit Standby Assistance,Head of Bed Elevated,Bedrails Sit to Supine Sit to Supine Maximum Assistance,1 Person Assistance PT-Transfer Assessment Sit to and From Stand Sit to and from Moderate Assistance,Maximum Assistance,1 Person Stand Assistance,Use of Upper Extremities Equipment Transfer Assistive Gait Belt,Front Wheeled Walker Device Orthotic/Prosthetic No Devices or Brace: Transfers Transfer Destination Bed,Chair Transfer Technique Stand Step Pivot Transfer Ability Level of Assist Moderate Assistance,1 Person Assistance,Use of Upper Extremities Comments Mobility Comments pt in bed and agreeable to do PT. completed heel slides prior to mobility. completed supine to sit SBA. pt needing increase time to complete all tasks. pt used UE to move LLE to EOB. sit to stand from EOB mod to max A and max cues. pt ambulated ~ 5 ft using fWW max A. required assist for weight shifting to be able to advance LE forward. pt needing to sit down. pt wants to go back to bed. positioned chair closer to bed. sit to stand from chair mod A and cues and step transfer to bed using fWW mod A. completed sit to supine max A and max cues. pt needing assist to elevate LLE up into the bed. positioned pt in bed. call light and table placed within reach. Gait Assessment Gait Gait Assistance Maximum Assistance,1 Person Assist Required: Distance (Feet) 5 Able to Maintain Yes Weight Bearing Status During Gait Assistive Devices Assistive Device Gait Belt,Front Wheeled Walker Orthotic/Prosthetic No Devices or Brace: Gait Deviations General Gait Pattern Antalgic,Decreased Stride Length,Decreased Feet Clearance,Step-to Gait Factors Limiting Gait Function Factors Limiting Decreased Activity Tolerance,Decreased Strength, Gait Function Difficulty Following Directions,Limited Range of Motion ,Pain,Poor Balance,Poor Safety Awareness M5 PT-IP Objective Assessments Start: 12/03/24 13:13 Freq: NEEDED Status: Active Protocol: Document 12/03/24 11:22 DLM (Rec: 12/03/24 13:36 DLM Desktop) Orientation Orientation/Cognition Level of Alertness Alert Orientation Name,Age,Birthday,Month,Date,Year,Day of Week,Place, Situation Language Function No Deficits Noted Ability Safety Awareness Understands Safety Issues Memory Description No Deficits Noted Comments she reports feeling goofy after surgery yesterday but better today Gross Range of Motion Upper Extremity ROM Assessment Within Functional Limits Lower Extremity ROM Assessment Left Impaired Impairments pain interferes with hip motions and knee flexion tolerance, able to sit with knee flexed to 90 degrees seated but reports painful and prefers to keep it extended Strength Upper Extremity Strength Assessment Within Functional Limits Lower Extremity Strength Assessment Left Impaired Hip needs assist to move in bed, reports pain with all movement Knee seated knee ext 2+/5 Ankle DF 5/5 Coordination Assessment Assessment Coordination mild tremor noted, pt reports it is not baseline Comments Sensation Assessment Sensation Gross Sensation WNL Muscle Tone Muscle Tone WNL Yes M6 PT-IP Treatment Start: 12/03/24 13:13 Freq: NEEDED Status: Active Protocol: Document 12/04/24 15:25 AB (Rec: 12/04/24 16:08 AB [id number]) Physical Therapy Treatment Exercises Exercises Heel Slides Education Education Provided Safety M7 PT-IP Assessment and Plan Start: 12/03/24 13:13 Freq: NEEDED Status: Active Protocol: Document 12/04/24 15:25 AB (Rec: 12/04/24 16:08 AB [id number]) PT Summary Assessment and Plan Potential Rehabilitation Good Potential Summary Impairments Pain,ROM,Strength,Balance,Coordination,Sensation,Tone, Cognition,Bed Mobility,Transfers,Gait,Activity Tolerance Progress Towards Slow Progress due to Pain,Slow Progress due to Activity Goals Tolerance Assessment Summary pt progressing slowly with mobility and needing mod to max A for transfers using FWW and max A for ambulation using FWW but still limited with ambulation. pt will benefit from SNF rehab to improve overall strength and mobility independence. Goals Bed Mobility Goal Independent Transfer Goal Independent,Front Wheeled Walker Gait Goal Independent,Front Wheel Walker Gait Distance 150 Other Goals Up/down 12 stairs with bilateral rails and SBA. Days to Meet Goals 10 Frequency of Treatment Frequency Of Once a Day Treatment Other frequency 1-2x/day Treatment Plan Physical Therapy Bed Mobility Training,Transfer Training,Gait Training, Treatment Plan Therapeutic Exercise,Balance Retraining,Post Op Education,Discharge Planning,Hot or Cold Pack, Neuromuscular Re-ed Precautions Other Precautions hx of falls Weight Bearing Status Weight Bearing Weight Bear as Tolerated Status Allowed Weight left femur ORIF, use FWW Bearing Amount ( enter % or #) (%) Recommendations To Nursing Amount of Assist 1 Person Assist Needed Discharge Recommendations PT Discharge SNF Rehab Recommendations Equipment Needed for FWW needed for home use Home Before Discharge Transportation Needs Private Vehicle,Wheelchair/Cabulance at Discharge - PT assist 1
[2024-12-04] MEDS: ATORVASTATIN 20 MG TABLET PO (21:06)
[2024-12-04] MEDS: SENNOSIDES 8.6 MG TABLET 17.2 MG PO (21:06)
[2024-12-05] VITALS: O2SAT 95
[2024-12-05 04:00] VITALS: O2SAT 96
[2024-12-05] MEDS: PANTOPRAZOLE DR 20 MG TABLET PO (06:26)
[2024-12-05 06:51] LABS: Add Manual Diff / Slide Review NO; Basophils Absolute Auto 0 /uL (0-100); Basophils Percent Auto 0.4 % (0-2); Eosinophils Absolute Auto 100 /uL (0-450); Eosinophils Percent Auto 1.6 % (2-4); Hematocrit 23.7 % (36-46); Hemoglobin 8.1 g/dL (12.0-16.0); Lymphocytes Absolute Auto 1600 /uL (1100-4500); Lymphocytes Percent Auto 18.4 % (25-40); Mean Corpuscular Volume 91.3 fL (80-100); Monocytes Absolute Auto 600 /uL (0-900); Monocytes Percent Auto 6.8 % (3-14); Neutrophils Absolute Auto 6300 /uL (1500-7000); Neutrophils Percent Auto 72.8 % (50-75); Platelet Count 225 X10^3/uL (150-400); Red Cell Distribution Width 14.2 % (11.6-14.8); White Blood Cell Count 8.6 X10^3/uL (4.5-11.0)
[2024-12-05 06:58] LABS: BUN Creatinine Ratio 23.5 (6-22); Blood Urea Nitrogen 16 mg/dL (7-17); Calcium 8.4 mg/dL (8.4-10.2); Carbon Dioxide 27 mmol/L (22-32); Chloride 104 mmol/L (98-107); Estimated Glomerular Filt Rate > 60 mL/min (>60); Glucose 101 mg/dL (70-99); HEMOLYSIS < 15 (0-50); Magnesium 2.1 mg/dL (1.6-2.3); Potassium 3.5 mmol/L (3.4-5.1); Sodium 137 mmol/L (137-145)
[2024-12-05 08:00] VITALS: BP 109/53; PULSE 90; RESP 16; TEMP 36.8; O2SAT 93
[2024-12-05] MEDS: DOCUSATE 100 MG CAPSULE PO (08:39)
[2024-12-05] MEDS: PARoxetine 20 MG TABLET PO (08:39)
[2024-12-05] MEDS: polyethylene glycoL 3350 17 GM POWD.PACK PO (08:39)
[2024-12-05] MEDS: ENOXAPARIN 40 MG/0.4 ML SYRINGE SUBCUT (08:39)
[2024-12-05] MEDS: SODIUM CHLORIDE 0.9% FLUSH 10 ML IV (08:41)
[2024-12-05] MEDS: ACETAMINOPHEN 325 MG TABLET 650 MG PO (08:43)
[2024-12-05] MEDS: POTASSIUM CHLORIDE 20 MEQ TAB PO (08:44)
--- NOTE | 2024-12-05 10:20 | PT.IPTN ---
Current Diagnoses Displaced fracture of lesser trochanter of right femur, initial encounter for closed fracture (12/02/24) Surgery Performed Operation Date: 12/02/24 16:00 Actual Procedures p Intramedullary Nailing Femur, left hip - Konrad Landeros MD Physical Therapy Treatment Note M2 PT-IP Current Condition Start: 12/03/24 13:13 Freq: NEEDED Status: Active Protocol: Document 12/03/24 11:22 DLM (Rec: 12/03/24 13:36 DLM Desktop) Physical Therapy Current Condition Current Condition Evaluation Date 12/03/24 Treatment Diagnosis fall, left femur fx, ORIF Onset Date 12/02/24 M3 PT-IP Subjective Start: 12/03/24 13:13 Freq: NEEDED Status: Active Protocol: Document 12/05/24 10:20 AB (Rec: 12/05/24 12:51 AB Desktop) Subjective Physical Therapy Visit Type Type Treatment Note Visit Start Time 10:20 Visit Stop Time 10:45 Number of AUTO RADIO MECHANIC Visits 0 Physical Therapy Visit Comments Patient Comments wants to go back to bed M4 PT-IP Mobility and Gait Start: 12/03/24 13:13 Freq: NEEDED Status: Active Protocol: Document 12/05/24 10:20 AB (Rec: 12/05/24 12:51 AB Desktop) PT-Bed Mobility Assessment Sit to Supine Sit to Supine Maximum Assistance,1 Person Assistance,Head of Bed Elevated PT-Transfer Assessment Sit to and From Stand Sit to and from Moderate Assistance,1 Person Assistance,Use of Upper Stand Extremities Equipment Transfer Assistive Gait Belt,Front Wheeled Walker Device Orthotic/Prosthetic No Devices or Brace: Transfers Transfer Destination Bed Transfer Technique ambulated Transfer Ability Level of Assist Maximum Assistance,1 Person Assistance,Use of Upper Extremities Comments Mobility Comments pt sitting on the chair and wants to go back to bed. agreed to ambulate to the bed. sit to stand from the chair mod A and ambulated ~ 3 ft using FWW max A and max cues. continues to require max A for weight shifting and to move LE forward. completed sit to supine max A and max cues. positioned pt in bed. call light and table placed within reach. Gait Assessment Gait Gait Assistance Maximum Assistance,1 Person Assist Required: Distance (Feet) 3 Able to Maintain Yes Weight Bearing Status During Gait Assistive Devices Assistive Device Gait Belt,Front Wheeled Walker Orthotic/Prosthetic No Devices or Brace: Gait Deviations General Gait Pattern Decreased Stride Length,Decreased Feet Clearance,Step- to Gait Factors Limiting Gait Function Factors Limiting Decreased Activity Tolerance,Decreased Strength, Gait Function Difficulty Following Directions,Limited Range of Motion ,Pain,Poor Balance,Poor Safety Awareness M5 PT-IP Objective Assessments Start: 12/03/24 13:13 Freq: NEEDED Status: Active Protocol: Document 12/03/24 11:22 DLM (Rec: 12/03/24 13:36 DLM Desktop) Orientation Orientation/Cognition Level of Alertness Alert Orientation Name,Age,Birthday,Month,Date,Year,Day of Week,Place, Situation Language Function No Deficits Noted Ability Safety Awareness Understands Safety Issues Memory Description No Deficits Noted Comments she reports feeling goofy after surgery yesterday but better today Gross Range of Motion Upper Extremity ROM Assessment Within Functional Limits Lower Extremity ROM Assessment Left Impaired Impairments pain interferes with hip motions and knee flexion tolerance, able to sit with knee flexed to 90 degrees seated but reports painful and prefers to keep it extended Strength Upper Extremity Strength Assessment Within Functional Limits Lower Extremity Strength Assessment Left Impaired Hip needs assist to move in bed, reports pain with all movement Knee seated knee ext 2+/5 Ankle DF 5/5 Coordination Assessment Assessment Coordination mild tremor noted, pt reports it is not baseline Comments Sensation Assessment Sensation Gross Sensation WNL Muscle Tone Muscle Tone WNL Yes M6 PT-IP Treatment Start: 12/03/24 13:13 Freq: NEEDED Status: Active Protocol: Document 12/05/24 10:20 AB (Rec: 12/05/24 12:51 AB Desktop) Physical Therapy Treatment Education Education Provided Safety M7 PT-IP Assessment and Plan Start: 12/03/24 13:13 Freq: NEEDED Status: Active Protocol: Document 12/05/24 10:20 AB (Rec: 12/05/24 12:51 AB Desktop) PT Summary Assessment and Plan Potential Rehabilitation Good Potential Summary Impairments Pain,ROM,Strength,Balance,Coordination,Sensation,Tone, Cognition,Bed Mobility,Transfers,Gait,Activity Tolerance Progress Towards Slow Progress due to Pain,Slow Progress due to Activity Goals Tolerance Assessment Summary pt continues to require mod to max A for transfers and ambulation using fWW. pt will benefit from SNF rehab to improve functional independence. Goals Bed Mobility Goal Independent Transfer Goal Independent,Front Wheeled Walker Gait Goal Independent,Front Wheel Walker Gait Distance 150 Other Goals Up/down 12 stairs with bilateral rails and SBA. Days to Meet Goals 10 Frequency of Treatment Frequency Of Once a Day Treatment Other frequency 1-2x/day Treatment Plan Physical Therapy Bed Mobility Training,Transfer Training,Gait Training, Treatment Plan Therapeutic Exercise,Balance Retraining,Post Op Education,Discharge Planning,Hot or Cold Pack, Neuromuscular Re-ed Precautions Other Precautions hx of falls Weight Bearing Status Weight Bearing Weight Bear as Tolerated Status Allowed Weight left femur ORIF, use FWW Bearing Amount ( enter % or #) (%) Recommendations To Nursing Amount of Assist 1 Person Assist Needed Discharge Recommendations PT Discharge SNF Rehab Recommendations Transportation Needs Private Vehicle,Wheelchair/Cabulance at Discharge - PT assist 1
--- NOTE | 2024-12-05 11:02 | P.DS_ITS ---
History of Present Illness History of Present Illness Chief complaint: Fall; L Hip pain Narrative: Per H&P: This is a 74 year old female with PMH of emphysema (dx on CT imaging per review), descending thoracic aortic aneurysm, hernia who had a mechanical fall this morning and could not bear weight after hitting the coffee table. She received 50 mcg of fentanyl with EMS and continued to have pain. Imaging showed a left proximal femur fracture. Orthopedics was consulted and will take the patient to the OR this afternoon. Patient denies recent fever, chills, cough, dyspnea, nausea, vomiting, abdominal pain, dysuria, dyspnea on exertion, leg edema. She possibly has some increased urinary frequency. Discharge Providers Provider Date of admission: 12/02/24 12:00 Discharge Date: 12/05/24 Primary care physician: Harry Jaime DO Consults: 12/02/24 11:55 Consult to Orthopedic Surgery Stat Comment: Consulting Provider: Konrad Landeros Reason for consultation: L femur fracture Has provider been notified: Yes 12/02/24 21:19 Consult to Discharge Planning Routine Comment: Consult to Occupational Therapy Evaluate & Treat Comment: Physician Instructions: Evaluate and treat Consult to Physical Therapy Evaluate & Treat Comment: Physician Instructions: Evaluate and Treat Discharge provider: Glory Ferrer MD Summary Hospital Course Discharge Diagnosis: 1. Left displaced proximal femur fracture, pathologic, status post ORIF 2. GERD/hiatal hernia 3. Hyperlipidemia 4. Chronic joint pain 5. COPD 6. Descending thoracic aortic aneurysm Hospital Course: Patient was admitted with a left proximal femur fracture which she sustained on December 02, 2024. She underwent an ORIF on the same day. Postoperatively she did fairly well. She mobilized with therapies and had reasonably good pain control. She is [facility] for [facility] and is discharging in stable condition. Status at Discharge Cognitive/behavioral status at discharge: at baseline, oriented Functional status at discharge: uses cane/walker Overall status at discharge: patient is progressing back to baseline Time Spent with Patient Time spent: Greater than 30 minutes Exam Vital Signs (past 8 hours): - 12/05/24 04:00 12/05/24 08:00 12/05/24 08:00 Temperature 98.2 F Pulse Rate 90 Respiratory Rate 16 Blood Pressure 109/53 L Pulse Oximetry 96 93 93 Oxygen Delivery Method Room Air Room Air Oxygen Flow Rate 0 Oxygen Delivery Method Room Air Oxygen Flow Rate 0 Narrative Exam Narrative: GEN: Pleasant middle-aged female, Alert and oriented x 3, NAD HEENT:NC, Face symmetric CHEST: Respiratory excursions symmetric, CTAB CV: RRR, no M/R/G ABD: Soft, NT/ND, BT present in all 4 quadrants, no organomegaly or masses EXTR: warm, well perfused, no C/C/E to the right lower extremity, she has 2+ nonpitting edema noted to the left lower extremity SKIN: warm and dry, no rash NEURO: Alert and oriented x 3, nonfocal Objective Labs 12/05/24 06:10 12/05/24 06:10 Labs: Laboratory Results - last 24 hr 12/05/24 06:10 WBC 8.6 RBC 2.60 L Hgb 8.1 L Hct 23.7 L MCV 91.3 MCH 31.0 MCHC 34.0 RDW 14.2 Plt Count 225 Neut % (Auto) 72.8 Lymph % (Auto) 18.4 L Gibson % (Auto) 6.8 Eos % (Auto) 1.6 L Baso % (Auto) 0.4 Neut # (Auto) 6300 Lymph # (Auto) 1600 Gibson # (Auto) 600 Eos # (Auto) 100 Baso # (Auto) 0 Sodium 137 Potassium 3.5 Chloride 104 Carbon Dioxide 27 BUN 16 Creatinine 0.68 Estimated GFR > 60 BUN/Creatinine Ratio 23.5 H Glucose 101 H Calcium 8.4 Magnesium 2.1 PFSH Medical History Abdominal aortic aneurysm (AAA) 3.0 cm to 5.0 cm in diameter in female Altered bowel habits Bochdalek hernia Constipation Depression with anxiety Esophageal thickening GERD (gastroesophageal reflux disease) Gross hematuria Hiatal hernia History of smoking History of UTI Hx of small bowel obstruction Lower urinary tract symptoms (LUTS) Non-compliance Obstructive defect of renal pelvis Postmenopausal atrophic vaginitis Postmenopausal atrophic vaginitis Pulmonary emphysema Pulmonary nodules/lesions, multiple Right kidney stone Right nephrolithiasis Right nephrolithiasis Tobacco use disorder Tobacco use disorder, moderate, in early remission Surgical History H/O: hysterectomy History of laparoscopic cholecystectomy Family History Father Hearing impairment UTI (urinary tract infection) Kidney stones Social History household members: family quit status: considering quitting second hand exposure: No alcohol intake: current substance use type: does not use Discharge Plan Discharge Plan Patient Disposition: SNF Transfer to: [facility] Under care of provider: Facility MD Provider Discharge Comment: You were admitted with a L hip fracture. You are discharging to [facility] for rehab. Please continue to take pain medications as needed to control pain so you can participate fully in your therapy program. Make sure you are having bowel movements at least every 2-3 days. Return to the ED for: Increased pain, fevers, redness at surgery site Inability to hold down food/fluids chest pain or Shortness of breath Discharge orders & Medications Prescriptions: New oxycodone 5 mg Tablet 5 mg PO Q3H PRN (Reason: Pain, Severe (7-10)) Qty: 30 0RF acetaminophen 325 mg Tablet 650 mg PO Q6H Qty: 30 0RF docusate sodium 100 mg Capsule 100 mg PO BID Qty: 30 0RF polyethylene glycol 3350 17 gram Powder In Packet 17 g PO DAILY Qty: 30 0RF bisacodyl 10 mg Suppository 10 mg [place] PRN PRN (Reason: Constipation) Qty: 3 0RF sennosides [senna] 8.6 mg Tablet 17.2 mg PO BEDTIME Qty: 30 0RF pantoprazole 20 mg Tablet,Delayed Release (Dr/Ec) 20 mg PO BIDAC Qty: 30 0RF Continued atorvastatin 20 mg tablet 20 mg PO QPM Qty: 90 3RF Rx Instructions: Take 1 tablet daily for hyperlipidemia paroxetine HCl 20 mg tablet 20 mg PO DAILY Qty: 90 0RF Discontinued omeprazole 20 mg capsule,delayed release(DR/EC) 20 mg PO BID Qty: 180 0RF Follow up/Referrals: Harry Jaime DO [Primary Care Provider, Family Practice] Discharge Health Status Multidrug resistant organism: No MDRO Diet/Activity/Treatments Diet: Diet as Tolerated and Regular Liquid consistency: Normal/Thin Food texture: Regular Activity: As tolerated Oxygen: N/A Special Rehabilitation Services Reason for rehabilitation: Post-operative therapy Rehab type: Physical therapy and Occupational therapy Visit Report/Discharge Packet Stand Alone Forms: Patient Portal/API, Surgery Discharge Discharge Data Primary Care Provider: Harry Jaime VTE Deep Vein Thrombosis/Pulmonary Embolism Present on Admission: No
--- NOTE | 2024-12-05 11:55 | CM.DPC ---
Addendum entered by SRIKANTH Landers 12/05/24 12:11: ADD: Met bedside with pt and updated on discharge today and she remains agreeable and states her sister is having some uterine issues and going to the ED herself but her Dtr will be bedside and help get some of pt's belongings and clothes to SNF after d/c. BF Original Note: DCP Discharge SNF Per MD, pt remains medically stable to d/c to SNF today and no identified barriers to discharge and orders completed. confirmed that [facility] can accept pt today with transport around 1330 still. Secure emailed d/c summary, PASRR, signed med list, script, and orders to review. Updated database report writer, PROGRAM MANAGEMENT ANALYST, and RN and provided number to call report. Plan: Patient to d/c to [facility] today via facility van around 1330 before safe return home with sister. SRIKANTH Landers
[2024-12-05 12:00] VITALS: O2SAT 97
--- NOTE | 2024-12-05 13:37 | PC.NURSE ---
D/c packet given to [facility] personnel. IV removed. Pt dressed with one-person assistance. Report given to LYNN Shepherd at [facility]. Pt exited via w/c to [facility].
== END 2024-12-05 13:37 | DRG 482 ==
LOC: ED 11:49 → AC 12:01
PROVIDERS: Orthopaedic Surgery; Admitting Provider Internal Medicine; Emergency Provider Family Medicine; PCP Family Medicine; Referring Provider Family Medicine; Visit Provider Internal Medicine
PROC: 0QS706Z Reposition Left Upper Femur with Intramedullary Internal Fixation Device, Open Approach (ICD-10-PCS; principal; 2024-12-02 16:00)
DX: M84.452A Pathological fracture, left femur, initial encounter for fracture (principal); K44.9 Diaphragmatic hernia without obstruction or gangrene; E78.5 Hyperlipidemia, unspecified; G89.29 Other chronic pain; M25.50 Pain in unspecified joint; K21.9 Gastro-esophageal reflux disease without esophagitis; J44.9 Chronic obstructive pulmonary disease, unspecified; I71.23 Aneurysm of the descending thoracic aorta, without rupture; F32.A Depression, unspecified; F41.9 Anxiety disorder, unspecified; Z87.891 Personal history of nicotine dependence
CPT/HCPCS: 27236; 36415; 72192; 73502; 73552; 76000; 80048; 80053; 81001; 83735; 84484; 85014; 85018; 85025; 85610; 85730; 93005; 93010; 94760; 96361; 96374; 96375; 97116; 97162; 97165; 97530; 97535; 99284; C1713; J0690; J1100; J1171; J1650; J2405; J2704; J2765; J3010; J3490

== ENCOUNTER → 2024-12-11 06:06 | Outpatient (ROUT) | payer OTHER, SELFPAY ==
[2024-12-02 12:30] VITALS: BMI 24.7
[2024-12-11 06:18] LABS: Appearance Urine UA CLOUDY; Bilirubin Urine UA NEGATIVE (NEGATIVE); Color Urine UA YELLOW; Glucose Urine UA NEGATIVE (Negative); Ketones Urine UA NEGATIVE (NEGATIVE); Leukocyte Esterase Urine UA 1+ (NEGATIVE); Nitrite Urine UA NEGATIVE (Negative); Occult Blood Urine UA 1+ (Negative); Protein Urine UA NEGATIVE (Negative); Specific Gravity Urine UA 1.015 (1.000-1.035); Urobilinogen Urine UA 0.2 E.U./dL (0.2)
[2024-12-11 06:25] LABS: pH Urine UA 5.5 (4.5-8.0)
[2024-12-11 06:28] LABS: Bacteria Urine Many (>30); Culture Indicated Urine Specimen Cultured; RBC Urine 1-5/HPF (0-5/HPF); Squamous Epithelial Cell Urine 0-1 /HPF (0-5/HPF); Urine Volume 10mL (spun); WBC Urine 10-30/HPF (0-5/HPF)
== END ==
PROVIDERS: PCP Family Medicine; Visit Provider Hospitalist
DX: R30.0 Dysuria (principal)
CPT/HCPCS: 81001; 87077; 87086; 87186

== ENCOUNTER → 2025-01-06 09:34 | Outpatient (CLI) | payer OTHER, SELFPAY ==
[2024-12-02 12:30] VITALS: BMI 24.7
[2025-01-06 11:04] LABS: Appearance Urine UA CLEAR; Bilirubin Urine UA NEGATIVE (NEGATIVE); Color Urine UA YELLOW; Glucose Urine UA NEGATIVE (Negative); Ketones Urine UA NEGATIVE (NEGATIVE); Leukocyte Esterase Urine UA NEGATIVE (NEGATIVE); Nitrite Urine UA NEGATIVE (Negative); Occult Blood Urine UA TRACE-INTACT (Negative); Protein Urine UA NEGATIVE (Negative); Specific Gravity Urine UA 1.020 (1.000-1.035); Urobilinogen Urine UA 0.2 E.U./dL (0.2)
[2025-01-06 11:05] LABS: pH Urine UA 6.0 (4.5-8.0)
[2025-01-06 11:06] LABS: Culture Indicated Urine Cult Not Indicated
== END ==
PROVIDERS: PCP Family Medicine; Referring Provider Family Medicine; Visit Provider Family Medicine
DX: R39.9 Unspecified symptoms and signs involving the genitourinary system (principal)
CPT/HCPCS: 81001

== ENCOUNTER 2025-01-07 17:29 | Inpatient (IN) | payer OTHER, SELFPAY ==
[2024-12-02 12:30] VITALS: BMI 24.7
[2025-01-07 17:45] VITALS: BP 101/58; PULSE 95; RESP 20; TEMP 36.7; O2SAT 99; BMI 23.0
--- NOTE | 2025-01-07 18:02 | DI.RAD.S_ITS ---
PROCEDURE: XR CHEST 1V INDICATIONS: Chest Pain TECHNIQUE: One view of the chest was acquired. COMPARISON: [facility], , CHEST 2 VIEW, 03/22/2017, 15:30. FINDINGS: Surgical changes and devices: None. Lungs and pleura: Hyperinflated, hyperlucent lungs with horizontal scar formation at the left lower lung, probable minor bibasilar atelectasis. No significant pleural effusion and no pneumothorax. Emphysematous changes probable in the left upper lobes. Mediastinum: Mediastinal contours appear normal. Heart size is normal. Chronically prominent central pulmonary arteries. Bones and chest wall: No suspicious bony lesions. Overlying soft tissues appear unremarkable. IMPRESSION: Chronic findings of COPD/emphysema. Minor bibasilar atelectatic changes. Dictated by: Cat Hernandez M.D. on 01/07/2025 at 18:26 Approved by: Cat Hernandez M.D. on 01/07/2025 at 18:29
[2025-01-07 18:12] LABS: Add Manual Diff / Slide Review NO; Hematocrit 36.8 % (36-46); Hemoglobin 11.8 g/dL (12.0-16.0); Lymphocytes Absolute Auto 300 /uL (1100-4500); Mean Corpuscular HGB Conc 32.0 % (30-36); Mean Corpuscular Hemoglobin 30.3 PG (26-34); Mean Corpuscular Volume 94.6 fL (80-100); Platelet Count 307 X10^3/uL (150-400)
[2025-01-07 18:13] LABS: INR 1.3 (0.9-1.3); Prothrombin Time 14.3 SECONDS (9.4-12.5)
[2025-01-07 18:17] LABS: PTT Partial Thromboplastin Tim 28 SECONDS (25.1-36.5)
[2025-01-07 18:20] LABS: Alanine Aminotransferase 49 IU/L (<35); Albumin 3.7 g/dL (3.5-5.0); Albumin Globulin Ratio 1.1 (1.0-2.8); Alkaline Phosphatase 119 U/L (38-126); Blood Urea Nitrogen 22 mg/dL (7-17); Calcium 8.8 mg/dL (8.4-10.2); Carbon Dioxide 22 mmol/L (22-32); Chloride 100 mmol/L (98-107); Creatine Kinase 37 U/L (30-135); Estimated Glomerular Filt Rate > 60 mL/min (>60); Globulin 3.3 g/dL (1.7-4.1); Glucose 136 mg/dL (70-99); HEMOLYSIS < 15 (0-50); Lipase 17 U/L (23-300); Magnesium 1.6 mg/dL (1.6-2.3); Potassium 3.6 mmol/L (3.4-5.1); Sodium 134 mmol/L (137-145); Total Protein 7.0 g/dL (6.3-8.2)
[2025-01-07 18:31] LABS: NT-proBNP (BNP-Adult 18+) 848 pg/mL (<450); Troponin I < 0.012 ng/mL (0.01-0.034)
--- NOTE | 2025-01-07 19:59 | DI.CT.S_ITS ---
PROCEDURE: CT ANGIO CHEST ABDOMEN PELVIS INDICATIONS: weakness, hx AAA TECHNIQUE: Precontrast 5 mm thick sections acquired from the lung apices to the iliac crests. After the administration of intravenous contrast, 2.5 mm thick sections again acquired from the lung apices to the iliac crests. Maximum intensity projection (MIP) oblique sagittal and coronal reformats were then acquired. For radiation dose reduction, the following was used: automated exposure control. COMPARISON: [facility], CT, CT CHEST ABD PEL W CON, 07/16/2023, 14:33. [facility], CT, CT PEL WO CON, 12/02/2024, 9:50. [facility], CT, CT CHEST W CON, 01/01/2023, 10:08. [facility], CT, CT IVP A/P W/WO, 10/29/2022, 11:04. FINDINGS: Image quality: Portions of the lower pelvis are suboptimally evaluated secondary to metallic streak artifact from hip fixation hardware. AORTA: Descending thoracic aneurysmal dilation is present measuring 4.4 x 4.3 cm compared to 3.9 x 4.1 cm. No dissection. No evidence rupture. Prominent atherosclerotic calcifications are present. CHEST: Lower Neck: No enlarged lymph nodes. Thyroid: No thyroid nodules which require sonographic evaluation. Axillae: No enlarged lymph nodes. Chest Wall: Unremarkable. Lungs and Pleura: No pneumothorax or pleural effusions. Emphysematous changes are present. Unchanged lateral right upper lobe pulmonary density. Heart: Heart size is normal. No pericardial effusion. Thoracic Vessels: Pulmonary arteries demonstrate normal size. Mediastinum and Linda: No enlarged lymph nodes. Esophagus: No wall thickening. Minimal hiatal hernia. ABDOMEN: Liver: Unchanged simple hepatic cyst. Gallbladder: Removed. Biliary ducts: No biliary dilation. Pancreas: No ductal dilation. Spleen: Size is within normal limits. Adrenal Glands: No adrenal nodules. Kidneys and Ureters: Unchanged prominent right extrarenal pelvis. No solid mass. No complex renal cystic lesion which requires follow up. Stomach and Bowel: Normal colonic caliber, without significant wall thickening. Scattered diverticula inflammatory change. Peritoneum: No abnormal intraperitoneal fluid. No free air. Ventral Wall: No hernia. Abdominal Nodes: No retroperitoneal or mesenteric adenopathy by size criteria. Vessels: Inferior vena cava is normal in size. PELVIS: Pelvic Organs: Unremarkable. Bladder: Unremarkable. Pelvic Nodes: No enlarged lymph nodes. Miscellaneous: No inguinal hernias are seen. Bones: Unremarkable. IMPRESSION: Slight increased size of descending thoracic aneurysmal dilation without dissection or rupture. Diverticulosis. Dictated by: Chiara Santos M.D. on 01/07/2025 at 20:58 Approved by: Chiara Santos M.D. on 01/07/2025 at 21:02
--- NOTE | 2025-01-07 20:10 | ED_ITS ---
HPI - Weakness General Chief complaint: Weakness Stated complaint: Lethargy Time Seen by Provider: 01/07/25 17:29 Source: patient and EMS Mode of arrival: EMS History of Present Illness HPI Narrative: 74-year-old female recently transitioned out of [facility] to private home with her sister last month, history of urinary tract infection treated in November, and more recent suspected UTI, started on oral nitrofurantoin antibiotic yesterday with 1st dose yesterday and second dose this morning, unclear if this is based on any urine culture or if it was empiric treatment for UTI. History of allergy to penicillins, cephalosporins including cephalexin, clindamycin antibiotics. She had history of left hip fracture last month that was treated here, had graduated from nursing rehab facility as above. History of emphysema, denies recent cough, denies chest pain, denies shortness of breath. No leg pain or swelling symptoms. History of prior kidney stone. MD Complaint: generalized weakness Related Data Home Medications ?Medication ?Instructions ?Recorded ?Confirmed omeprazole 20 mg capsule,delayed 20 mg PO BID 01/07/25 01/07/25 release Previous Rx's ?Medication ?Instructions ?Recorded atorvastatin 20 mg tablet 20 mg PO QPM #90 tabs paroxetine HCl 20 mg tablet 20 mg PO DAILY #90 tabs bisacodyl 10 mg rectal suppository 10 mg OR PRN PRN Co nstipation #3 ea 12/05/24 pantoprazole 20 mg tablet,delayed 20 mg PO BIDAC #30 t abs 12/05/24 release nitrofurantoin macrocrystal 100 mg 100 mg PO BID #6 ca ps 01/06/25 capsule Allergies Allergy/AdvReac Type Severity Reaction Status Date / Time nitrofurantoin Allergy Intermediate Nausea/Vomiting, Verified 01/07/25 17:45 weakness/fatigue penicillin G (PENICILLIN G) Allergy Mild RASH A Verified 01/08/25 11:26 CHILD cephalexin (CEPHALEXIN) Allergy Unknown Verified 01/07/25 17:45 clindamycin (CLINDAMYCIN) Allergy Unknown tongue Verified 01/07/25 17:45 spasms tamsulosin AdvReac Intermediate puffy eyes Verified 01/07/25 17:45 Patient History Medical History Abdominal aortic aneurysm (AAA) 3.0 cm to 5.0 cm in diameter in female Altered bowel habits Bochdalek hernia Constipation Depression with anxiety Esophageal thickening GERD (gastroesophageal reflux disease) Gross hematuria Hiatal hernia History of smoking History of UTI Hx of small bowel obstruction Lower urinary tract symptoms (LUTS) Non-compliance Obstructive defect of renal pelvis Postmenopausal atrophic vaginitis Postmenopausal atrophic vaginitis Pulmonary emphysema Pulmonary nodules/lesions, multiple Right kidney stone Right nephrolithiasis Right nephrolithiasis Tobacco use disorder Tobacco use disorder, moderate, in early remission Surgical History H/O: hysterectomy History of laparoscopic cholecystectomy Family History Father Hearing impairment UTI (urinary tract infection) Kidney stones Social History household members: family Smoking Status: Former smoker quit status: considering quitting second hand exposure: No alcohol intake: current substance use type: does not use Smoking Status: Former smoker tobacco type: cigarettes alcohol intake frequency: holidays/special occasions only Alcohol type: wine Exam Narrative Exam Narrative: GENERAL: Well-developed patient, in mild distress. HEAD: Atraumatic. Normocephalic. EYES: Pupils equal round and reactive. Extraocular motions intact. No scleral icterus. No injection or drainage. ENT: Nose without bleeding, purulent drainage. No obvious facial swelling or trauma. NECK: Trachea midline. Moves neck well. CARDIOVASCULAR: Regular rate and rhythm without murmurs, gallops, or rubs. RESPIRATORY: Clear to auscultation. Breath sounds equal bilaterally. No wheezes, rales, or rhonchi. GASTROINTESTINAL: Abdomen soft, non-tender, nondistended. EXTREMITIES: No edema or joint tenderness. BACK: Nontender without deformity or crepitance. No flank tenderness. NEURO: AOx3. Motor functions grossly nonfocal. SKIN: No rash or erythema of visible areas Initial Vital Signs Initial Vital Signs: Vital Signs Temperature 98.1 F 01/07/25 17:45 Pulse Rate 95 H 01/07/25 17:45 Respiratory Rate 20 01/07/25 17:45 Blood Pressure 101/58 L 01/07/25 17:45 Pulse Oximetry 99 01/07/25 17:45 Oxygen Delivery Method Room Air 01/07/25 17:45 Course Orders Ordered: ED Orders 01/08/25 18:00 Complete Blood Count AUTO DIFF DAILY Acetaminophen (Acetaminophen 325 Mg Tablet) 650 mg PO Q6H PRN PRN Reason: Fever/Mild Pain (1-3) Hydrocodone Bitart/Acetaminophen (Hydrocodone/Acet 5/325 Tablet) 1 tab PO Q4H PRN PRN Reason: Pain, Moderate (4-6) Atorvastatin Calcium (Atorvastatin 20 Mg Tablet) 20 mg PO QPM [facility] Heparin Sodium (Porcine) (Heparin 5,000 Unit/Ml Vial) 5,000 unit SUBCUT BID [facility] Last Admin: 01/08/25 08:31 Dose: 5,000 unit Documented By: NALLELY Sodium Chloride (Normal Saline 0.9%) 1,000 mls @ 100 mls/hr IV CONT [facility] Last Admin: 01/08/25 08:31 Dose: 100 mls/hr Documented By: Infusion: 01/08/25 08:31 Dose: Infused Documented By: Admin: 01/07/25 22:51 Dose: 100 mls/hr Documented By: CHARIS Levofloxacin (Levaquin) 750 mg in 150 mls @ 100 mls/hr IV Q48H [facility] Naloxone HCl (Naloxone 0.4 Mg/Ml Vial) 0.2 mg IV Q2MIN PRN PRN Reason: Opiate Reversal Ondansetron HCl (Ondansetron 4 Mg/2 Ml Inj) 4 mg IV Q8HR PRN PRN Reason: Nausea And Vomiting Pantoprazole Sodium (Pantoprazole Dr 20 Mg Tablet) 20 mg PO BIDAC [facility] Last Admin: 01/08/25 08:31 Dose: 20 mg Documented By: NALLELY Paroxetine HCl (Paroxetine 20 Mg Tablet) 20 mg PO DAILY [facility] Last Admin: 01/08/25 08:31 Dose: 20 mg Documented By: NALLELY Discontinued Medications Levofloxacin (Levaquin) 750 mg in 150 mls @ 100 mls/hr IV NOW ONE Stop: 01/07/25 21:28 Last Infusion: 01/08/25 07:27 Dose: Infused Documented By: Admin: 01/07/25 20:39 Dose: 100 mls/hr Documented By: DKKassi Sodium Chloride (Normal Saline 0.9%) 1,000 mls @ 1,000 mls/hr IV BOLUS ONE Stop: 01/07/25 20:59 Last Infusion: 01/08/25 07:27 Dose: Infused Documented By: Admin: 01/07/25 20:39 Dose: 1,000 mls/hr Documented By: VINNIE Levofloxacin (Levaquin) 500 mg in 100 mls @ 100 mls/hr IV Q24H [facility] Influenza Virus Vaccine (Influenza Hd Vaccine 0.5 Ml Syringe) 0.5 ml IM .ONCE ONE Stop: 01/07/25 23:02 Potassium Chloride (Potassium Chloride 20 Meq Tab) 40 meq PO NOW ONE Stop: 01/08/25 09:46 Last Admin: 01/08/25 11:06 Dose: 40 meq Documented By: NALLELY Vital Signs Vital signs: Vital Signs - 8 hr 01/07/25 17:45 Temperature 98.1 F Pulse Rate 95 H Respiratory Rate 20 Blood Pressure 101/58 L Pulse Oximetry 99 Oxygen Delivery Method Room Air MDM - Weakness Lab Data Lab results narrative: White blood cell count 93535, hemoglobin 11.8, platelets 173508. Glucose 136, BUN 22 with creatinine 0.76. CO2 22. Sodium 134, potassium 3.6. Mild transaminitis, normal total bilirubin and alkaline phosphatase. Lipase normal. BNP 870 mild elevation. Troponin negative/unmeasurable. 01/07/25 17:15 01/08/25 04:21 Labs: Lab Results 01/07/25 01/07/25 01/07/25 Range/Units 17:15 17:15 20:23 WBC 23.4 H (4.5-11.0) X10^3/uL RBC 3.89 L (4.0-5.2) X10^6/uL Hgb 11.8 L (12.0-16.0) g/dL Hct 36.8 (36-46) % MCV 94.6 (80-100) fL MCH 30.3 (26-34) PG MCHC 32.0 (30-36) % RDW 18.0 H (11.6-14.8) % Plt Count 307 (150-400) X10^3/uL Neut % (Auto) 94.2 H (50-75) % Lymph % (Auto) 1.5 L (25-40) % [place] % (Auto) 2.1 L (3-14) % Eos % (Auto) 2.0 (2-4) % Baso % (Auto) 0.2 (0-2) % Neut # (Auto) 17860 H (9411-0804) /uL Lymph # (Auto) 300 L (9801-3177) /uL [place] # (Auto) 500 (0-900) /uL Eos # (Auto) 500 H (0-450) /uL Baso # (Auto) 0 (0-100) /uL PT 14.3 H (9.4-12.5) SECONDS INR 1.3 (0.9-1.3) APTT 28 (25.1-36.5) SECONDS Sodium 134 L (137-145) mmol/L Potassium 3.6 (3.4-5.1) mmol/L Chloride 100 (98-107) mmol/L Carbon Dioxide 22 (22-32) mmol/L BUN 22 H (7-17) mg/dL Creatinine 0.76 (0.52-1.04) mg/dL Estimated GFR > 60 (>60) mL/min BUN/Creatinine Ratio 28.9 H (6-22) Glucose 136 H (70-99) mg/dL Lactate 2.0 (0.7-2.1) mmol/L Calcium 8.8 (8.4-10.2) mg/dL Magnesium 1.6 (1.6-2.3) mg/dL Total Bilirubin 0.7 (0.2-1.3) mg/dL AST 59 H (14-36) IU/L ALT 49 H (<35) IU/L Alkaline Phosphatase 119 (38-126) U/L Total Creatine Kinase 37 (30-135) U/L Troponin I < 0.012 (0.01-0.034) ng/mL NT-Pro-B Natriuret Pep 848 H 870 H (<450) pg/mL Total Protein 7.0 (6.3-8.2) g/dL Albumin 3.7 (3.5-5.0) g/dL Globulin 3.3 (1.7-4.1) g/dL Albumin/Globulin Ratio 1.1 (1.0-2.8) Lipase 17 L (23-300) U/L Imaging Data CTA chest abdomen and pelvis: Radiologist Impression: [address] [address] [address] Scan Report Signed Patient: Ruth oBbo MR#: [id number] : 1950 Acct:[id number] Age/Sex: 74 / F Date of Service: 01/07/25 Loc: ED Accession Number: [id number] Procedure: CT angio chest abdomen pelvis Ordering Provider: Lazarus Mike MD PROCEDURE: CT ANGIO CHEST ABDOMEN PELVIS INDICATIONS: weakness, hx AAA TECHNIQUE: Precontrast 5 mm thick sections acquired from the lung apices to the iliac crests. After the administration of intravenous contrast, 2.5 mm thick sections again acquired from the lung apices to the iliac crests. Maximum intensity projection (MIP) oblique sagittal and coronal reformats were then acquired. For radiation dose reduction, the following was used: automated exposure control. COMPARISON: [facility], CT, CT CHEST ABD PEL W CON, 07/16/2023, 14:33. [facility], CT, CT PEL WO CON, 12/02/2024, 9:50. [facility], CT, CT CHEST W CON, 01/01/2023, 10:08. [facility], CT, CT IVP A/P W/WO, 10/29/2022, 11:04. FINDINGS: Image quality: Portions of the lower pelvis are suboptimally evaluated secondary to metallic streak artifact from hip fixation hardware. AORTA: Descending thoracic aneurysmal dilation is present measuring 4.4 x 4.3 cm compared to 3.9 x 4.1 cm. No dissection. No evidence rupture. Prominent atherosclerotic calcifications are present. CHEST: Lower Neck: No enlarged lymph nodes. Thyroid: No thyroid nodules which require sonographic evaluation. Axillae: No enlarged lymph nodes. Chest Wall: Unremarkable. Lungs and Pleura: No pneumothorax or pleural effusions. Emphysematous changes are present. Unchanged lateral right upper lobe pulmonary density. Heart: Heart size is normal. No pericardial effusion. Thoracic Vessels: Pulmonary arteries demonstrate normal size. Mediastinum and [place]: No enlarged lymph nodes. Esophagus: No wall thickening. Minimal hiatal hernia. ABDOMEN: Liver: Unchanged simple hepatic cyst. Gallbladder: Removed. Biliary ducts: No biliary dilation. Pancreas: No ductal dilation. Spleen: Size is within normal limits. Adrenal Glands: No adrenal nodules. Kidneys and Ureters: Unchanged prominent right extrarenal pelvis. No solid mass. No complex renal cystic lesion which requires follow up. Stomach and Bowel: Normal colonic caliber, without significant wall thickening. Scattered diverticula inflammatory change. Peritoneum: No abnormal intraperitoneal fluid. No free air. Ventral Wall: No hernia. Abdominal Nodes: No retroperitoneal or mesenteric adenopathy by size criteria. Vessels: Inferior vena cava is normal in size. PELVIS: Pelvic Organs: Unremarkable. Bladder: Unremarkable. Pelvic Nodes: No enlarged lymph nodes. Miscellaneous: No inguinal hernias are seen. Bones: Unremarkable. IMPRESSION: Slight increased size of descending thoracic aneurysmal dilation without dissection or rupture. Diverticulosis. Dictated by: Chiara Santos M.D. on 01/07/2025 at 20:58 Approved by: Chiara Santos M.D. on 01/07/2025 at 21:02 Chest x-ray: Radiologist Impression: [address] [address] XRay Report Signed Patient: Ruth Bobo MR#: [id number] : 1950 Acct:[id number] Age/Sex: 74 / F Date of Service: 01/07/25 Loc: ED Accession Number: [id number] Procedure: XR chest 1V Ordering Provider: Erin Denson MD PROCEDURE: XR CHEST 1V INDICATIONS: Chest Pain TECHNIQUE: One view of the chest was acquired. COMPARISON: [facility], , CHEST 2 VIEW, 03/22/2017, 15:30. FINDINGS: Surgical changes and devices: None. Lungs and pleura: Hyperinflated, hyperlucent lungs with horizontal scar formation at the left lower lung, probable minor bibasilar atelectasis. No significant pleural effusion and no pneumothorax. Emphysematous changes probable in the left upper lobes. Mediastinum: Mediastinal contours appear normal. Heart size is normal. Chronically prominent central pulmonary arteries. Bones and chest wall: No suspicious bony lesions. Overlying soft tissues appear unremarkable. IMPRESSION: Chronic findings of COPD/emphysema. Minor bibasilar atelectatic changes. Dictated by: Cat Hernandez M.D. on 01/07/2025 at 18:26 Approved by: Cat Hernandez M.D. on 01/07/2025 at 18:29 [facility] Narrative Medical decision making narrative: 74-year-old with history of recurrent and recent UTI, start of nitrofurantoin antibiotic, generalized weakness. Had another UTI last month in November treated with oral antibiotic they cannot name. Afebrile, sirs screen negative. Labs including urinalysis pending. History of kidney stones. DDx consider UTI progressing despite NTF, drug resistannt UTI, obstructing stone, development of abscess, GI related non urinary cause, other. History of aortic aneurysm, consider progression/dissection. Labs pending. [place] [id number]. Blood cultures requested. Urinalysis pending. Recent start of nitrofurantoin for possible UTI noted. Allergies noted to penicillin and Keflex. We will start IV levofloxacin. Chest x-ray COPD changes noted. See radiology report. Lab data: White blood cell count 44460, hemoglobin 11.8, platelets 623094. Glucose 136, BUN 22 with creatinine 0.76. CO2 22. Sodium 134, potassium 3.6. Mild transaminitis, normal total bilirubin and alkaline phosphatase. Lipase normal. BNP 870 mild elevation. Troponin negative/unmeasurable. Records review. Previous urine culture results from 12/11/2024, E coli. Resistant to ampicillin. Sensitive to Augmentin, cefazolin, ceftriaxone, ciprofloxacin, gentamicin, ertapenem, levofloxacin, meropenem, nitrofurantoin, trimethoprim sulfamethoxazole, Zosyn. CTA chest abdomen and pelvis. Shows little significant change from prior known thoracic aortic aneurysm. No mention of any acute pulmonary findings, also no urinary stones or complicated UTI picture or subdiaphragmatic abdominopelvic acute changes. See radiology report. Leukocytosis suspected due to UTI, not responding to two doses oral NTF, has generalized weakness, consider admission, has multiple drug allergies to penicillins and cephalosporins, IV Levaquin initiated, recent UTI was quinolone sensitive last month. BNP mildly elevated, will give gentle IVF bolus for now. We will page hospitalist regarding admission. [id number], case discussed with hospitalist Dr. Cerna who accepts patient for admission Critical Care Time Critical Care Time Critical Care Time: Yes Total Critical Care Time: 35 Attestation: The high probability of a clinically significant, sudden or life threatening deterioration of the [abdominopelvic, genitourinary] system(s) required my full and direct attention, intervention and personal management. The aggregate critical care time was [35] minutes. This time is in addition to time spent performing reported procedures but includes the following: [x] Data Review and interpretation [x] Patient assessment and monitoring of vital signs [x] Documentation [x] Medication orders and management Discharge Plan Departure Patient Disposition: Admitted As Inpatient Clinical Impression: Generalized weakness, History of recurrent UTIs, Urinary tract infection Admit Date/Time: 01/07/25 21:29 Admit Provider: Ishmael Cerna
[2025-01-07 20:33] LABS: NT-proBNP (BNP-Adult 18+) 870 pg/mL (<450)
[2025-01-07] MEDS: SODIUM CHLORIDE 0.9% 1,000 ML 1000 ML IV (20:39)
[2025-01-07 20:53] LABS: Lactate (Lactic Acid) 2.0 mmol/L (0.7-2.1)
--- NOTE | 2025-01-07 21:41 | PC.NURSE ---
COORDINATOR SKILL TRAINING PROGRAM note: haley care done and purewick placed.
[2025-01-07 22:15] VITALS: BP 119/67; PULSE 92; RESP 22; TEMP 36.3; O2SAT 98
[2025-01-07 22:47] VITALS: BMI 23.0
[2025-01-07] MEDS: SODIUM CHLORIDE 0.9% 1,000 ML 100 ML IV (22:51)
[2025-01-08] VITALS (43 sets, daily range): BP systolic 95–136; BP diastolic 60–83; PULSE 77–98; RESP 18–41; TEMP 36.4–36.6; O2SAT 96–98
[2025-01-08 00:10] LABS: MRSA (Nasal) PCR NOT DETECTED (Not Detect)
--- NOTE | 2025-01-08 05:56 | P.HP_ITS ---
History of Present Illness History of Present Illness Date Patient Seen: 01/07/25 Time Patient Seen: 23:15 Chief complaint: Lethargy Narrative: 74-year-old female with past medical history of recurrent urinary tract infection, hyperlipidemia, depression and GERD presents with generalized weakness and fatigue. Of note the patient recently transferred out from a nursing facility to a private home with her sister a month ago. The patient has a history of recurrent UTI and most recently the patient was started on nitrofurantoin yesterday. The patient did receive 1 dose prior to presenting to our ER today. Of note the patient does have multiple allergies to penicillin cephalosporin and clindamycin. Despite taking the nitrofurantoin the patient continued to have fatigue and generalized weakness. The patient however denies any fever, chills, nausea, vomiting, diarrhea, dysuria, chest pain, shortness of breath or coughing. In our emergency room, the patient was hemodynamically stable and was afebrile. Lab however shows a WBC of 23 lactate of 2.0 BNP of 870 and UA that was positive for UTI. CT angio of the chest abdomen and pelvic shows no acute finding other than slight increase size in descending thoracic aneurysm dilation without dissection or rupture. The patient was given IV fluid and levofloxacin. FORMERLY [facility], [facility] Medical History Abdominal aortic aneurysm (AAA) 3.0 cm to 5.0 cm in diameter in female Altered bowel habits Bochdalek hernia Constipation Depression with anxiety Esophageal thickening GERD (gastroesophageal reflux disease) Gross hematuria Hiatal hernia History of smoking History of UTI Hx of small bowel obstruction Lower urinary tract symptoms (LUTS) Non-compliance Obstructive defect of renal pelvis Postmenopausal atrophic vaginitis Postmenopausal atrophic vaginitis Pulmonary emphysema Pulmonary nodules/lesions, multiple Right kidney stone Right nephrolithiasis Right nephrolithiasis Tobacco use disorder Tobacco use disorder, moderate, in early remission Surgical History H/O: hysterectomy History of laparoscopic cholecystectomy Family History Father Hearing impairment UTI (urinary tract infection) Kidney stones Social History household members: family Smoking Status: Former smoker quit status: considering quitting second hand exposure: No alcohol intake: current substance use type: does not use Meds Home Medications and Allergies Home Medications ?Medication ?Instructions ?Recorded ?Confirmed ?Type atorvastatin 20 mg tablet 20 mg PO QPM #90 tabs 01/07/25 Rx paroxetine HCl 20 mg tablet 20 mg PO DAILY #90 tabs 01/07/25 Rx bisacodyl 10 mg rectal suppository 10 mg HI PRN PRN Co nstipation #3 ea 12/05/24 01/07/25 Rx pantoprazole 20 mg tablet,delayed 20 mg PO BIDAC #30 t abs 12/05/24 01/07/25 Rx release nitrofurantoin macrocrystal 100 mg 100 mg PO BID #6 ca ps 01/06/25 01/07/25 Rx capsule omeprazole 20 mg capsule,delayed 20 mg PO BID 01/07/25 01/07/25 History release Allergies Allergy/AdvReac Type Severity Reaction Status Date / Time nitrofurantoin Allergy Intermediate Nausea/Vomiting, Verified 01/07/25 17:45 weakness/fatigue penicillin G (PENICILLIN G) Allergy Mild RASH A Verified 01/07/25 17:45 CHILD cephalexin (CEPHALEXIN) Allergy Unknown Verified 01/07/25 17:45 clindamycin (CLINDAMYCIN) Allergy Unknown tongue Verified 01/07/25 17:45 spasms tamsulosin AdvReac Intermediate puffy eyes Verified 01/07/25 17:45 Review of Systems Review of Systems ROS: Yes All systems reviewed with the patient and are negative except as otherwise documented Exam Vital Signs (past 8 hours): - 01/07/25 22:15 01/07/25 22:30 01/08/25 02:40 Temperature 97.4 F L Pulse Rate 92 H 89 Respiratory Rate 22 24 Blood Pressure 119/67 95/60 Pulse Oximetry 98 98 Oxygen Delivery Method Room Air Oxygen Flow Rate 0 0 Oxygen Delivery Method Room Air Oxygen Flow Rate 0 Narrative Exam Narrative: Physical Exam: GENERAL: The patient is not in any acute distressed. Awake and alert. HEENT: Nonicteric sclerae, PERRLA, EOMI. Oropharynx clear. Moist mucous membranes. Conjunctivae appear well perfused. HEART: Regular rate and rhythm without murmurs. No lower extremities edema. LUNGS: Clear to auscultation bilaterally. No wheezing, crackles or rhonchi ABDOMEN: Soft, positive bowel sounds, nontender. SKIN: No rash, no excessive bruising, petechiae, or purpura. NEUROLOGIC: AxO x 3. Cranial nerves II-XII intact without motor/sensory deficit. Objective Labs 01/07/25 17:15 01/07/25 17:15 Labs: Laboratory Results - last 24 hr 01/07/25 01/07/25 01/07/25 17:15 17:15 20:23 WBC 23.4 H RBC 3.89 L Hgb 11.8 L Hct 36.8 MCV 94.6 MCH 30.3 MCHC 32.0 RDW 18.0 H Plt Count 307 Neut % (Auto) 94.2 H Lymph % (Auto) 1.5 L [place] % (Auto) 2.1 L Eos % (Auto) 2.0 Baso % (Auto) 0.2 Neut # (Auto) 63439 H Lymph # (Auto) 300 L [place] # (Auto) 500 Eos # (Auto) 500 H Baso # (Auto) 0 PT 14.3 H INR 1.3 APTT 28 Sodium 134 L Potassium 3.6 Chloride 100 Carbon Dioxide 22 BUN 22 H Creatinine 0.76 Estimated GFR > 60 BUN/Creatinine Ratio 28.9 H Glucose 136 H Lactate 2.0 Calcium 8.8 Magnesium 1.6 Total Bilirubin 0.7 AST 59 H ALT 49 H Alkaline Phosphatase 119 Total Creatine Kinase 37 Troponin I < 0.012 NT-Pro-B Natriuret Pep 848 H 870 H Total Protein 7.0 Albumin 3.7 Globulin 3.3 Albumin/Globulin Ratio 1.1 Lipase 17 L Nasal Screen MRSA (PCR) 01/07/25 22:30 WBC RBC Hgb Hct MCV MCH MCHC RDW Plt Count Neut % (Auto) Lymph % (Auto) [place] % (Auto) Eos % (Auto) Baso % (Auto) Neut # (Auto) Lymph # (Auto) [place] # (Auto) Eos # (Auto) Baso # (Auto) PT INR APTT Sodium Potassium Chloride Carbon Dioxide BUN Creatinine Estimated GFR BUN/Creatinine Ratio Glucose Lactate Calcium Magnesium Total Bilirubin AST ALT Alkaline Phosphatase Total Creatine Kinase Troponin I NT-Pro-B Natriuret Pep Total Protein Albumin Globulin Albumin/Globulin Ratio Lipase Nasal Screen MRSA (PCR) Not detected Assessment & Plan Assessment & Plan narrative: Recurrent UTI. Admit the patient to medical inpatient. Of note the patient is hemodynamically stable without signs of sepsis. In addition patient has multiple allergies to different antibiotics. Will continue Levaquin for now and follow-up urine culture. IV fluid. Leukocytosis. Likely due to above. Lactate normal at 2.0. Patient is afebrile. Treat as above and monitor WBC. Generalized weakness. PT OT. Depression. Resume home antidepressant. Hyperlipidemia. Resume home statin. GERD resume home PPI. DVT prophylaxis heparin subcu. CODE STATUS full code. Disposition likely home in 2 days - As the provider of this telehealth evaluation, requested by the patient's evaluating physician, I attest that I introduced myself to the patient, provided my credentials and determined that telemedicine via a real-time, 2 way interactive audio and video platform is an appropriate and effective means of providing this service. - I reviewed the patient's chart and had a discussion with the member of the patient's treatment team. - The patient and I mutually agreed with continuation of this evaluation via telemedicine. The patient consented for the telemedicine evaluation. - This virtual encounter was taken place from [place] by Dr. Ishmael Cerna. The patient was evaluated at [facility]. The encounter was approximately 35 minutes. The nurse was present during the entire time of the encounter and was able to move the stethoscope in appropriate directions. Time-Based Coding :: [TOTAL MINUTES] spent with patient and on the chart (including review of chart, obtaining history, exam, reviewing outside data, placing orders, documenting exam and treatment plan, and counseling patient) on [DATE].
[2025-01-08 06:03] LABS: Blood Urea Nitrogen 19 mg/dL (7-17); Calcium 8.0 mg/dL (8.4-10.2); Carbon Dioxide 23 mmol/L (22-32); Chloride 106 mmol/L (98-107); Estimated Glomerular Filt Rate > 60 mL/min (>60); Glucose 77 mg/dL (70-99); HEMOLYSIS < 15 (0-50); Potassium 3.3 mmol/L (3.4-5.1); Sodium 134 mmol/L (137-145)
[2025-01-08] MEDS: HEPARIN 5,000 UNIT/ML VIAL 5000 UNIT SUBCUT ×2 (08:31→20:49)
[2025-01-08] MEDS: PANTOPRAZOLE DR 20 MG TABLET PO ×2 (08:31→17:11)
[2025-01-08] MEDS: SODIUM CHLORIDE 0.9% 1,000 ML 100 ML IV (08:31)
--- NOTE | 2025-01-08 09:32 | CM.DANOTE ---
Initial DCP Assessment Note Pt is a 74 yo female, resident of [place], admitted for management of UTI. PCP: Harry Jaime Payer: Michel SANCHEZ Reviewed chart, met w/patient who reports she recently returned home from her stay at [facility] services. Patient plans on returning at discharge. Patient is typically indp and active at baseline, since her fall, hip fx and repair she has been recovering well, had been walking with a walker before becoming more ill and coming into the ER. Patient denies needs presently. Patient would like [facility] resumed when she leaves . Family to transport. No barriers identified at this time to patient's safe discharge home w/family to assist; close outpatient f/u recommended. F2F and HH order have been emailed along with FS and H+P to Joanne at [facility]. Social work team will plan to follow clinical course closely. SRIKANTH Dugan Discharge Planning/Care Management CM Discharge Assessment Start: 01/07/25 22:01 Freq: Status: Active Protocol: Document 01/08/25 09:25 GRACIELA (Rec: 01/08/25 09:32 GRACIELA [id number]) Discharge Planning Assessment Assigned Discharge SRIKANTH Gil Pool Lifeguard DPOA/Assigned Virginia Hutchison, sister P [phone] Designee Name Contact Information Courtney Arreola, daughter P [phone] Advance Directives? No History Provided By Patient,Medical Record Has Patient been Yes admitted in last 30 days? Comment Here in November for repair of hip fx after a fall, discharged to [facility] Prior Living House Arrangements Household Members family Comment Sister lives upstairs, patient has the downstairs Type of Drives own vehicle transporation used prior to admit Independent with ADL No 's Is patient alert and Yes oriented? Needs Assistance Bathing,Meal Prep,Managing Medications,Home Chores / With Shopping Comment Needs assist mostly with higher ADLs since her fall and hip surgery. Still recovering. Walks w/walker. Patient/Family Home with Home Health Preference Comment Unknown at this time. Discharge Plan Home with Home Health Transportation Family Arrangement Referrals Initiated Home Health Additional Comment Resumption of [facility]
[2025-01-08] MEDS: POTASSIUM CHLORIDE 20 MEQ TAB 40 MEQ PO (11:06)
--- NOTE | 2025-01-08 11:15 | PT.IIE ---
Current Diagnoses Urinary tract infection, site not specified (01/07/25) Surgical History (Last Reviewed 12/04/24 @ 11:50 by Jatin Hagan MD) H/O: hysterectomy History of laparoscopic cholecystectomy Medical History (Last Reviewed 12/04/24 @ 11:50 by Jatin Hagan MD) Abdominal aortic aneurysm (AAA) 3.0 cm to 5.0 cm in diameter in female Altered bowel habits Bochdalek hernia Constipation Depression with anxiety Esophageal thickening GERD (gastroesophageal reflux disease) Gross hematuria Hiatal hernia History of smoking History of UTI Hx of small bowel obstruction Lower urinary tract symptoms (LUTS) Non-compliance Obstructive defect of renal pelvis Postmenopausal atrophic vaginitis Postmenopausal atrophic vaginitis Pulmonary emphysema Pulmonary nodules/lesions, multiple Right kidney stone Right nephrolithiasis Right nephrolithiasis Tobacco use disorder Tobacco use disorder, moderate, in early remission Physical Therapy Inpatient Evaluation/Re-Eval M1 PT/OT-IP Prior Functional Status Start: 01/08/25 13:16 Freq: NEEDED Status: Active Protocol: Document 01/08/25 11:15 AB (Rec: 01/08/25 13:27 AB [id number]) Medical Review Prior Functional Status Medical History Yes Reviewed Communication able to make needs known Mobility and Gait pt stated that she was modified independent with all mobilities and ambulation using a 4WW Social History Household Members family Living Arrangements House Number of Floors ( Two Floors Floors) Number of Stairs To pt's sister lives upstairs and pt stays on first level Enter/Railing? of the house Has 1 flight of steps with B rails to get into the house Home Environment High Toilet,Tub/Shower Home Equipment Four Wheel Walker Additional Social pt stated that she sleeps on her recliner History Comment M2 PT-IP Current Condition Start: 01/08/25 13:16 Freq: NEEDED Status: Active Protocol: Document 01/08/25 11:15 AB (Rec: 01/08/25 13:27 AB [id number]) Physical Therapy Current Condition Current Condition Evaluation Date 01/08/25 Treatment Diagnosis UTI; generalized weakness Onset Date 01/07/25 M3 PT-IP Subjective Start: 01/08/25 13:16 Freq: NEEDED Status: Active Protocol: Document 01/08/25 11:15 AB (Rec: 01/08/25 13:27 AB [id number]) Subjective Physical Therapy Visit Type Type Initial Evaluation Visit Start Time 11:15 Visit Stop Time 11:45 Number of AWS ARCHITECT Visits 0 Physical Therapy Visit Comments Patient Comments agreeable to do PT M4 PT-IP Mobility and Gait Start: 01/08/25 13:16 Freq: NEEDED Status: Active Protocol: Document 01/08/25 11:15 AB (Rec: 01/08/25 13:27 AB [id number]) PT-Bed Mobility Assessment Supine to Sit Supine to Sit Standby Assistance PT-Transfer Assessment Sit to and From Stand Sit to and from Contact Guard Assistance,1 Person Assistance,Use of Stand Upper Extremities Equipment Transfer Assistive Gait Belt,Front Wheeled Walker Device Orthotic/Prosthetic No Devices or Brace: Transfers Transfer Destination Chair Transfer Technique ambulated Transfer Ability Level of Assist Contact Guard Assistance,1 Person Assistance,Use of Upper Extremities Comments Mobility Comments pt in bed and agreeable to do PT. obtained PLOF and home set up. BP: 121/74 O2 sat at RA 95% SD:81. pt completed supine to sit SBA. able to sit on EOB SBA. sit to stand CGA and ambulated in room using FWW CGA ~ 75 ft with slow paced gait. pt agreed to sit on the chair. positioned pt on the chair. call light and table placed within reach. Gait Assessment Gait Gait Assistance Contact Guard Assist Required: Distance (Feet) 75 Able to Maintain Yes Weight Bearing Status During Gait Assistive Devices Assistive Device Gait Belt,Front Wheeled Walker Orthotic/Prosthetic No Devices or Brace: Gait Deviations General Gait Pattern Antalgic,Decreased Stride Length,Decreased Feet Clearance Factors Limiting Gait Function Factors Limiting Decreased Activity Tolerance,Decreased Strength,Poor Gait Function Balance,Poor Safety Awareness PT-Balance Assessment Sitting Balance and Reactions Static Sitting Normal Balance Ability Dynamic Sitting Good Balance Ability Standing Balance and Reactions Static Standing Good Balance Ability Dynamic Standing Fair Balance Ability Device Used FWW M5 PT-IP Objective Assessments Start: 01/08/25 13:16 Freq: NEEDED Status: Active Protocol: Document 01/08/25 11:15 AB (Rec: 01/08/25 13:27 AB [id number]) Orientation Orientation/Cognition Level of Alertness Alert Orientation Name,Place,Situation Language Function Hard of Hearing Ability Safety Awareness Decreased Safety Awareness Memory Description No Deficits Noted Gross Range of Motion Lower Extremity ROM Assessment Within Functional Limits Strength Lower Extremity Strength Assessment Within Functional Limits Muscle Tone Muscle Tone WNL Yes M6 PT-IP Treatment Start: 01/08/25 13:16 Freq: NEEDED Status: Active Protocol: Document 01/08/25 11:15 AB (Rec: 01/08/25 13:27 AB [id number]) Physical Therapy Treatment Education Education Provided Safety M7 PT-IP Assessment and Plan Start: 01/08/25 13:16 Freq: NEEDED Status: Active Protocol: Document 01/08/25 11:15 AB (Rec: 01/08/25 13:27 AB [id number]) PT Summary Assessment and Plan Potential Rehabilitation Good Potential Status of Condition Evolving at Evaluation Summary Impairments Pain,Strength,Balance,Coordination,Sensation,Cognition, Bed Mobility,Transfers,Gait,Activity Tolerance Assessment Summary pt is a 74 y/o F who is admitted for UTI, weakness. pt with recent fall s/p L hip ORIF and was just d/c'd from SNF. pt requiring CGA for mobility using FWW and presents with overall weakness affecting activity tolerance and independence. pt lives with her sister who can assist her at home. pt will benefit from HHPT vs outpt PT. will continue to assess progress. Goals Bed Mobility Goal Independent Transfer Goal Independent,Four Wheeled Walker Gait Goal Independent,Four Wheel Walker Gait Distance 200 Other Goals up/down 1 flight of stairs B rails SBA Days to Meet Goals 10 Frequency of Treatment Frequency Of Once a Day Treatment Treatment Plan Physical Therapy Bed Mobility Training,Transfer Training,Gait Training, Treatment Plan Therapeutic Exercise,Balance Retraining,Discharge Planning,Hot or Cold Pack,Neuromuscular Re-ed, Coordination Retraining Recommendations To Nursing Amount of Assist 1 Person Assist Needed Discharge Recommendations PT Discharge Home with Assistance,Home Health,Outpatient PT Recommendations Transportation Needs Private Vehicle at Discharge - PT assist 1
--- NOTE | 2025-01-08 14:10 | OT.IP.EVAL ---
Current Diagnoses Urinary tract infection, site not specified (01/07/25) Past Medical History (Last Reviewed 12/04/24 @ 11:50 by Jatin Hagan MD) Abdominal aortic aneurysm (AAA) 3.0 cm to 5.0 cm in diameter in female Altered bowel habits Bochdalek hernia Constipation Depression with anxiety Esophageal thickening GERD (gastroesophageal reflux disease) Gross hematuria Hiatal hernia History of smoking History of UTI Hx of small bowel obstruction Lower urinary tract symptoms (LUTS) Non-compliance Obstructive defect of renal pelvis Postmenopausal atrophic vaginitis Postmenopausal atrophic vaginitis Pulmonary emphysema Pulmonary nodules/lesions, multiple Right kidney stone Right nephrolithiasis Right nephrolithiasis Tobacco use disorder Tobacco use disorder, moderate, in early remission Surgical History (Last Reviewed 12/04/24 @ 11:50 by Jatin Hagan MD) H/O: hysterectomy History of laparoscopic cholecystectomy Occupational Therapy Inpatient Evaluation/Re-Eval M1 PT/OT-IP Prior Functional Status Start: 01/08/25 13:16 Freq: NEEDED Status: Active Protocol: Document 01/08/25 14:09 [facility] (Rec: 01/08/25 14:28 [facility] Desktop) Medical Review Prior Functional Status Medical History Yes Reviewed Communication able to make needs known Mobility and Gait pt stated that she was modified independent with all mobilities and ambulation using a 4WW Activities of Daily Pt states has been able to do ADL needs but needs Living and IADL's assist with IADl needs. Social History Household Members family Living Arrangements House Number of Floors ( Two Floors Floors) Number of Stairs To pt's sister lives upstairs and pt stays on first level Enter/Railing? of the house Has 1 flight of steps with B rails to get into the house Home Environment High Toilet,Tub/Shower Home Equipment Four Wheel Walker Additional Social pt stated that she sleeps on her recliner History Comment M2 OT-IP Current Condition Start: 01/08/25 14:09 Freq: Status: Active Protocol: Document 01/08/25 14:09 [facility] (Rec: 01/08/25 14:28 [facility] Desktop) Occupational Therapy Current Condition Current Condition Evaluation Date 01/08/25 Treatment Diagnosis UTI, generalized weakness Diagnosis Onset Date 01/07/25 M3 OT- IP Subjective and Pain Start: 01/08/25 14:09 Freq: Status: Active Protocol: Document 01/08/25 14:09 [facility] (Rec: 01/08/25 14:28 [facility] Desktop) OT- Subjective Occupational Therapy Visit Type Type Initial Evaluation Visit Start Time 13:30 Visit Stop Time 14:10 Occupational Therapy Visit Comments Patient Comments Pt agreed to get up to do oral care/grooming needs and use the toilet. Patient/Caregiver TO go home. Goals OT Pain Assessment Pain When Pain Assessed At Rest Pain Present Pain Present Denied Pain M4 OT- IP ADL's Start: 01/08/25 14:09 Freq: Status: Active Protocol: Document 01/08/25 14:09 [facility] (Rec: 01/08/25 14:28 [facility] Desktop) OT [id number] Comments OT Self-Feeding Not at meal time. Comments OT ADL-Grooming General Evaluation Areas Needing Retrieving/Set-up of Grooming Items Assistance Comments OT Grooming Comments Able to do while standing with the fww at the sink. OT ADL-Oral Care General Eval Oral Care Ability Independent OT ADL-Dressing General Eval Lower Body Dressing Moderate Assistance Ability Areas Needing Underpants/Brief Assistance Comments OT Dressing Comments The BSC too high so pt needing assist for her brief. Pt would benefit from BSC at home to increased to stand as needed, currently pt pushing on the FWW to asisst to stand or pushes on the tobias to assist to stand at home. OT ADL-Toileting General Evaluation Toileting Ability Minimal Assistance Areas Needing Manage Clothing Assistance Comments OT Toileting Assist to get the brief over her feet. Comments OT ADL-Bathing Comments OT Bathing Comments Pt refusing to shower as too tired. Pt would benefit from a shower chair/transfer pole versus tub bench. Also benefit from HHPS. M5 OT- IP IADL's Start: 01/08/25 14:09 Freq: Status: Active Protocol: Document 01/08/25 14:09 [facility] (Rec: 01/08/25 14:28 [facility] Desktop) OT-Instrumental Activities of Daily Living Home Safety Awareness Home Safety Comments Pt is a bit groggy and best to have assist at home. Suggested pt have a LIfe alert or carry her cell phone in a bryon pack to call for help. Medication Management Medication Pt would benefit from supervision and use of pill Management Comments organizer. Money Management Money Management Pt's daughter has paid her bills for the past both as Comments pt has been the the hospital or SNF. Meal Preparation Meal Preparation Caregiver Provides Assist Watchmaker Apprentice Watchmaker Apprentice Caregiver Provides Assist Driving Driving Concerns Identified Regarding Safety M6 OT- IP Functional Cognition Start: 01/08/25 14:09 Freq: Status: Active Protocol: Document 01/08/25 14:09 [facility] (Rec: 01/08/25 14:28 [facility] Desktop) Cognitive Factors Limiting Selfcare Function Cognitive Ability Level of Alertness Alert Patient Orientation Name,Place,Situation Attention Span Capable of Focused Attention,Capable of Sustained Ability Attention Ability to Follow Able to Follow One Step Commands Commands Cognitive Comments Cognitive Assessment Pt able to follow command. MODA vc for safety of use of Comments FWW. Pt may benefit from SLUMS. OT- Vision and Hearing OT- Vision Assessment Visual Acuity Glasses All The Time Visual Attentiveness WFL Occular Pursuits WFL M7 OT- IP Mobility and Balance Start: 01/08/25 14:09 Freq: Status: Active Protocol: Document 01/08/25 14:09 [facility] (Rec: 01/08/25 14:28 [facility] Desktop) OT-Transfer Assessment Sit to and From Stand Sit to and from Standby Assistance,Contact Guard Assistance Stand Transfers Transfer Ability Standby Assistance Technique Transfer Destination Bed,Toilet Transfer Technique Stand Step Pivot Devices Transfer Assistive Gait Belt,Front Wheeled Walker Devices Comments Mobility Comments SBA to stand from the recliner and CGA from the BSC. Once on her feet SBA with FWW. OT- Balance Assessment Sitting Balance and Reactions Static Sitting Normal Balance Ability Dynamic Sitting Good Balance Ability Standing Balance and Reactions Static Standing Good Balance Ability Dynamic Standing Fair Balance Ability M8 OT- IP Objective Assessments Start: 01/08/25 14:09 Freq: Status: Active Protocol: Document 01/08/25 14:09 [facility] (Rec: 01/08/25 14:28 [facility] Desktop) OT Gross Range of Motion Upper Extremity Range of Motion Assessment Within Functional Limits OT Strength Comments Strength Comments WFL for ADL needs. M9 OT- IP Assessment and Plan Start: 01/08/25 14:09 Freq: Status: Active Protocol: Document 01/08/25 14:09 [facility] (Rec: 01/08/25 14:28 [facility] Desktop) OT Summary Assessment and Plan Potential Rehabilitation Good Potential Analytic Complexity Moderate at Evaluation Summary OT Impairments Balance,Functional Mobility,Dressing,Toileting,Bathing, Toilet Transfers,Shower Transfers,Activity Tolerance Progress Towards Progressing Toward Goals Goals Assessment Summary Pt low complexity and main barriers are decreased activity tolerance, decreased safety awareness and will benefit from assist at home with IADL and some ADL needs. Suggested ADL equipment for pt to get. Pt to go home with assist when medically stable. Goals Self-Feeding Goal Independent Grooming Goal Independent Dressing Goal Independent Toileting Goal Independent Bathing Goal Standby Assistance Toilet Transfer Goal Independent Shower Transfer Goal Independent Patient/Caregiver Demonstrate Energy Conservation and Pacing Education Goal Days to Meet Goals 7 Frequency of Treatment Other frequency 5x/week Treatment Plan OT Treatment Plan ADL Training,Functional Mobility,Patient/Family Education,Discharge Planning Other Treatment Shower, SLUMS Recommendations and Next Treatment Focus Discharge Recommendations OT Discharge Home with 07/01 Assist Available,Home Health Recommendations Home Equipment Needs tub bench versus transfer pole /shower chair, HHPS, BSC , FWW Transportation Needs Private Vehicle at Discharge
--- NOTE | 2025-01-08 14:40 | P.HP_ITS ---
History of Present Illness History of Present Illness Date Patient Seen: 01/08/25 Chief complaint: Rigors feverishness leukocytosis suspected infecti Narrative: Chief complaint: Fever leukocytosis fever fatigue and rigors with leukocytosis 23,000 and small right lower lobe infiltrate History of present illness 01/07: 74-year-old female with past medical history of recurrent urinary tract infection, hyperlipidemia, depression and GERD presents with generalized weakness and fatigue. Of note the patient recently transferred out from a nursing facility to a private home with her sister a month ago. The patient has a history of recurrent UTI and most recently the patient was started on nitrofurantoin yesterday. The patient did receive 1 dose prior to presenting to our ER today. Of note the patient does have multiple allergies to penicillin cephalosporin and clindamycin. Despite taking the nitrofurantoin the patient continued to have fatigue and generalized weakness. The patient also reports fever, chills, shortness of breath. In our emergency room, the patient was hemodynamically stable and was afebrile. Lab however shows a WBC of 23 lactate of 2.0 BNP of 870 and UA that was negative for UTI. CT angio of the chest as a minimal area of posterior lower lobe airspace disease. Abdomen and pelvic shows no acute finding other than slight increase size in descending thoracic aneurysm dilation without dissection or rupture. The patient was given IV fluid and levofloxacin. Review of systems: No loss of consciousness No vomiting or diarrhea No palpitations Physical exam: No acute distress at the time of my examination alert cogent good recollection of the events HEENT unremarkable Heart rate and rhythm regular Lungs with wheezes on the right but clear on the left crackles at left base Abdomen nondistended Extremities no edema Objective laboratory and imaging please see the bottom of the note: Assessment and plan: Leukocytosis 23,000 with subtle right lower lobe airway consolidation shortness for breath rigors and feverish sensation suspect aspiration pneumonia * Levaquin initiated in the emergency department which is a workable antibiotic * No findings to suggest UTI although patient is still has urinary urgency this however seems to be chronic * Continue another 24 hours of observation and reassessment in the a.m. 01/09 * Doubt nitrofurantoin is culprit in any of these symptoms DVT prophylaxis with subcutaneous heparin Code status: * Full code blue 55 minutes were involved in evaluation of this patient [id number] meticulous review of laboratory and imaging findings [facility] Medical History Abdominal aortic aneurysm (AAA) 3.0 cm to 5.0 cm in diameter in female Altered bowel habits Bochdalek hernia Constipation Depression with anxiety Esophageal thickening GERD (gastroesophageal reflux disease) Gross hematuria Hiatal hernia History of smoking History of UTI Hx of small bowel obstruction Lower urinary tract symptoms (LUTS) Non-compliance Obstructive defect of renal pelvis Postmenopausal atrophic vaginitis Postmenopausal atrophic vaginitis Pulmonary emphysema Pulmonary nodules/lesions, multiple Right kidney stone Right nephrolithiasis Right nephrolithiasis Tobacco use disorder Tobacco use disorder, moderate, in early remission Surgical History H/O: hysterectomy History of laparoscopic cholecystectomy Family History Father Hearing impairment UTI (urinary tract infection) Kidney stones Social History household members: family Smoking Status: Former smoker quit status: considering quitting second hand exposure: No alcohol intake: current substance use type: does not use Meds Home Medications and Allergies Home Medications ?Medication ?Instructions ?Recorded ?Confirmed ?Type atorvastatin 20 mg tablet 20 mg PO QPM #90 tabs 01/07/25 Rx paroxetine HCl 20 mg tablet 20 mg PO DAILY #90 tabs 01/07/25 Rx bisacodyl 10 mg rectal suppository 10 mg RI PRN PRN Co nstipation #3 ea 12/05/24 01/07/25 Rx pantoprazole 20 mg tablet,delayed 20 mg PO BIDAC #30 t abs 12/05/24 01/07/25 Rx release nitrofurantoin macrocrystal 100 mg 100 mg PO BID #6 ca ps 01/06/25 01/07/25 Rx capsule omeprazole 20 mg capsule,delayed 20 mg PO BID 01/07/25 01/07/25 History release Allergies Allergy/AdvReac Type Severity Reaction Status Date / Time nitrofurantoin Allergy Intermediate Nausea/Vomiting, Verified 01/07/25 17:45 weakness/fatigue penicillin G (PENICILLIN G) Allergy Mild RASH A Verified 01/08/25 11:26 CHILD cephalexin (CEPHALEXIN) Allergy Unknown Verified 01/07/25 17:45 clindamycin (CLINDAMYCIN) Allergy Unknown tongue Verified 01/07/25 17:45 spasms tamsulosin AdvReac Intermediate puffy eyes Verified 01/07/25 17:45 Exam Vital Signs (past 8 hours): - 01/08/25 08:00 01/08/25 08:00 Temperature 97.9 F Oxygen Delivery Method Room Air Oxygen Delivery Method Room Air Oxygen Flow Rate 0 Objective Labs 01/07/25 17:15 01/08/25 04:21 Labs: Laboratory Results - last 24 hr 01/07/25 01/07/25 01/07/25 17:15 17:15 20:23 WBC 23.4 H RBC 3.89 L Hgb 11.8 L Hct 36.8 MCV 94.6 MCH 30.3 MCHC 32.0 RDW 18.0 H Plt Count 307 Neut % (Auto) 94.2 H Lymph % (Auto) 1.5 L Patrick % (Auto) 2.1 L Eos % (Auto) 2.0 Baso % (Auto) 0.2 Neut # (Auto) 69287 H Lymph # (Auto) 300 L Patrick # (Auto) 500 Eos # (Auto) 500 H Baso # (Auto) 0 PT 14.3 H INR 1.3 APTT 28 Sodium 134 L Potassium 3.6 Chloride 100 Carbon Dioxide 22 BUN 22 H Creatinine 0.76 Estimated GFR > 60 BUN/Creatinine Ratio 28.9 H Glucose 136 H Lactate 2.0 Calcium 8.8 Magnesium 1.6 Total Bilirubin 0.7 AST 59 H ALT 49 H Alkaline Phosphatase 119 Total Creatine Kinase 37 Troponin I < 0.012 NT-Pro-B Natriuret Pep 848 H 870 H Total Protein 7.0 Albumin 3.7 Globulin 3.3 Albumin/Globulin Ratio 1.1 Lipase 17 L Nasal Screen MRSA (PCR) 01/07/25 01/08/25 22:30 04:21 WBC RBC Hgb Hct MCV MCH MCHC RDW Plt Count Neut % (Auto) Lymph % (Auto) Patrick % (Auto) Eos % (Auto) Baso % (Auto) Neut # (Auto) Lymph # (Auto) Patrick # (Auto) Eos # (Auto) Baso # (Auto) PT INR APTT Sodium 134 L Potassium 3.3 L Chloride 106 Carbon Dioxide 23 BUN 19 H Creatinine 0.51 L Estimated GFR > 60 BUN/Creatinine Ratio 37.3 H Glucose 77 Lactate Calcium 8.0 L Magnesium Total Bilirubin AST ALT Alkaline Phosphatase Total Creatine Kinase Troponin I NT-Pro-B Natriuret Pep Total Protein Albumin Globulin Albumin/Globulin Ratio Lipase Nasal Screen MRSA (PCR) Not detected Assessment & Plan Time-Based Coding :: [TOTAL MINUTES] spent with patient and on the chart (including review of chart, obtaining history, exam, reviewing outside data, placing orders, documenting exam and treatment plan, and counseling patient) on [DATE].
[2025-01-08] MEDS: ATORVASTATIN 20 MG TABLET PO (17:11)
[2025-01-08 18:21] LABS: Add Manual Diff / Slide Review NO; Hematocrit 31.6 % (36-46); Hemoglobin 10.4 g/dL (12.0-16.0); Lymphocytes Absolute Auto 1000 /uL (1100-4500); Mean Corpuscular HGB Conc 33.0 % (30-36); Mean Corpuscular Hemoglobin 31.0 PG (26-34); Mean Corpuscular Volume 93.9 fL (80-100); Platelet Count 245 X10^3/uL (150-400)
[2025-01-09] VITALS (10 sets, daily range): BP systolic 126–146; BP diastolic 74–76; PULSE 75–84; RESP 16–39; TEMP 36.5; O2SAT 98
[2025-01-09 05:39] LABS: Blood Urea Nitrogen 10 mg/dL (7-17); Calcium 8.2 mg/dL (8.4-10.2); Carbon Dioxide 24 mmol/L (22-32); Chloride 105 mmol/L (98-107); Estimated Glomerular Filt Rate > 60 mL/min (>60); Glucose 83 mg/dL (70-99); HEMOLYSIS < 15 (0-50); Potassium 3.4 mmol/L (3.4-5.1); Sodium 135 mmol/L (137-145)
[2025-01-09] MEDS: PANTOPRAZOLE DR 20 MG TABLET PO (06:47)
[2025-01-09] MEDS: HEPARIN 5,000 UNIT/ML VIAL 5000 UNIT SUBCUT (08:27)
[2025-01-09] MEDS: POTASSIUM CHLORIDE 20 MEQ TAB 40 MEQ PO (08:27)
--- NOTE | 2025-01-09 11:35 | PT.IPTN ---
Current Diagnoses Urinary tract infection, site not specified (01/07/25) Physical Therapy Treatment Note M2 PT-IP Current Condition Start: 01/08/25 13:16 Freq: NEEDED Status: Active Protocol: Document 01/08/25 11:15 AB (Rec: 01/08/25 13:27 AB [id number]) Physical Therapy Current Condition Current Condition Evaluation Date 01/08/25 Treatment Diagnosis UTI; generalized weakness Onset Date 01/07/25 M3 PT-IP Subjective Start: 01/08/25 13:16 Freq: NEEDED Status: Active Protocol: Document 01/09/25 11:35 AB (Rec: 01/09/25 13:59 AB Desktop) Subjective Physical Therapy Visit Type Type Treatment Note Visit Start Time 11:35 Visit Stop Time 12:00 Number of STORE ADMINISTRATIVE ASSISTANT Visits 0 Physical Therapy Visit Comments Patient Comments stated that she wants to go home M4 PT-IP Mobility and Gait Start: 01/08/25 13:16 Freq: NEEDED Status: Active Protocol: Document 01/09/25 11:35 AB (Rec: 01/09/25 13:59 AB Desktop) PT-Transfer Assessment Sit to and From Stand Sit to and from Standby Assistance,1 Person Assistance,Use of Upper Stand Extremities Equipment Transfer Assistive Gait Belt,4 Wheeled Walker Device Orthotic/Prosthetic No Devices or Brace: Transfers Transfer Destination Toilet Transfer Technique ambulated Transfer Ability Level of Assist Standby Assistance,1 Person Assistance,Use of Upper Extremities Comments Mobility Comments pt sitting on the chair and stated that she does not feel up to doing something since she did not sleep well last night and want to hear from the doctor on d/c plan. pt stated that she will try to do some walking but does not want to do stair climbing. sit to stand SBA and ambulated in room using 4WW SBA ~ 75 ft. cues for brakes management. pt requested to use the toilet and ambulated to the toilet using 4WW SBA. ambulated towards the sink SBA using 4WW and able to stand SBA while doing handwashing . pt ambulated back to her chair SBA using 4WW. positioned pt on the chair. call light and table placed within reach. Gait Assessment Gait Gait Assistance Standby Assistance Required: Distance (Feet) 75 Able to Maintain Yes Weight Bearing Status During Gait Assistive Devices Assistive Device Gait Belt,4 Wheeled Walker Orthotic/Prosthetic No Devices or Brace: Gait Deviations General Gait Pattern Antalgic,Decreased Stride Length,Decreased Feet Clearance Factors Limiting Gait Function Factors Limiting Decreased Activity Tolerance,Decreased Strength, Gait Function Difficulty Following Directions,Pain,Poor Balance,Poor Safety Awareness M5 PT-IP Objective Assessments Start: 01/08/25 13:16 Freq: NEEDED Status: Active Protocol: Document 01/08/25 11:15 AB (Rec: 01/08/25 13:27 AB [id number]) Orientation Orientation/Cognition Level of Alertness Alert Orientation Name,Place,Situation Language Function Hard of Hearing Ability Safety Awareness Decreased Safety Awareness Memory Description No Deficits Noted Gross Range of Motion Lower Extremity ROM Assessment Within Functional Limits Strength Lower Extremity Strength Assessment Within Functional Limits Muscle Tone Muscle Tone WNL Yes M6 PT-IP Treatment Start: 01/08/25 13:16 Freq: NEEDED Status: Active Protocol: Document 01/09/25 11:35 AB (Rec: 01/09/25 13:59 AB Desktop) Physical Therapy Treatment Education Education Provided Safety M7 PT-IP Assessment and Plan Start: 01/08/25 13:16 Freq: NEEDED Status: Active Protocol: Document 01/09/25 11:35 AB (Rec: 01/09/25 13:59 AB Desktop) PT Summary Assessment and Plan Potential Rehabilitation Fair Potential Summary Impairments Pain,ROM,Strength,Balance,Coordination,Sensation,Tone, Cognition,Bed Mobility,Transfers,Gait,Activity Tolerance Progress Towards Slow Progress due to Activity Tolerance Goals Assessment Summary pt requiring SBA for ambulation using 4WW. Refused stair climbing today. pt lives with her sister and can assist if needed. pt will benefit from HHPT. Goals Bed Mobility Goal Independent Transfer Goal Independent,Four Wheeled Walker Gait Goal Independent,Four Wheel Walker Gait Distance 200 Other Goals up/down 1 flight of stairs B rails SBA Days to Meet Goals 10 Frequency of Treatment Frequency Of Once a Day Treatment Treatment Plan Physical Therapy Bed Mobility Training,Transfer Training,Gait Training, Treatment Plan Therapeutic Exercise,Balance Retraining,Discharge Planning,Hot or Cold Pack,Neuromuscular Re-ed, Coordination Retraining Other stair climbing Recommendations and Next Treatment Focus Recommendations To Nursing Amount of Assist 1 Person Assist Needed Discharge Recommendations PT Discharge Home with Assistance,Home Health,Outpatient PT Recommendations Transportation Needs Private Vehicle at Discharge - PT assist 1
--- NOTE | 2025-01-09 13:59 | PC.NURSE ---
[address] DR NAILS AT BEDSIDE DISCUSSING POC WITH PATIENT/ DAUGHTER. PLAN TO DISCHARGE PT TODAY.
--- NOTE | 2025-01-09 14:13 | PC.NURSE ---
IV D/C'D. DISCHARGE PACKET DISCUSSED/ GIVEN TO PATIENT. SIGNATURE PAGE PLACED IN CHART. WAITING ON DAUGHTER AND WRITTEN ATBX PRESCRIPTION FROM .
--- NOTE | 2025-01-09 14:23 | PC.NURSE ---
WRITTEN PRESCRIPTION GIVEN TO PATIENT. DISCHARGED.
--- NOTE | 2025-01-09 15:29 | PM.DS.1 ---
History of Present Illness History of Present Illness Chief complaint: Rigors feverishness leukocytosis suspected infecti Narrative: Per H&P: 74-year-old female with past medical history of recurrent urinary tract infection, hyperlipidemia, depression and GERD presents with generalized weakness and fatigue. Of note the patient recently transferred out from a nursing facility to a private home with her sister a month ago. The patient has a history of recurrent UTI and most recently the patient was started on nitrofurantoin yesterday. The patient did receive 1 dose prior to presenting to our ER today. Of note the patient does have multiple allergies to penicillin cephalosporin and clindamycin. Despite taking the nitrofurantoin the patient continued to have fatigue and generalized weakness. The patient however denies any fever, chills, nausea, vomiting, diarrhea, dysuria, chest pain, shortness of breath or coughing. In our emergency room, the patient was hemodynamically stable and was afebrile. Lab however shows a WBC of 23 lactate of 2.0 BNP of 870 and UA that was positive for UTI. CT angio of the chest abdomen and pelvic shows no acute finding other than slight increase size in descending thoracic aneurysm dilation without dissection or rupture. The patient was given IV fluid and levofloxacin. Discharge Providers Provider Date of admission: 01/07/25 21:29 Discharge Date: 01/09/25 Primary care physician: Harry Jaime DO Consults: 01/07/25 21:28 Consult to Occupational Therapy Evaluate & Treat Comment: Physician Instructions: Evaluate and treat 01/07/25 21:31 Consult to Physical Therapy Evaluate & Treat Comment: Physician Instructions: Evaluate and Treat 01/08/25 09:24 Consult to Home Health Routine Comment: Reason For Exam: home health Discharge provider: Glory Ferrer MD Summary Hospital Course Discharge Diagnosis: 1. Right upper lobe infiltrate, likely aspiration pneumonia 2. UTI, ruled out 3. Leukocytosis, resolved 4. Generalized weakness, improved 5. Hyperlipidemia 6. GERD Hospital Course: Patient was admitted with acute onset of weakness, fatigue, shortness of breath, and fevers. She had recently been discharged from [facility]. At home, she thought she had a urinary tract infection. She was able to have a urinalysis dropped off at her PCPs office. Her PCPs office sent nitrofurantoin in for her. She took 1 dose the evening before admission and a 2nd dose the day of admission. She subsequently developed worsening symptoms inclusive of weakness, fatigue, shortness of breath, fevers, chills, facial flushing. She thought it might be secondary to the nitrofurantoin as she reportedly has a history of a reaction to it. She subsequently came to the emergency department and was admitted. CT revealed a right upper lobe infiltrate. UA was unremarkable. She was placed on IV Levaquin. She did recall an episode of aspiration shortly before discharge from [facility]. Her white blood cell count improved to 10.3. She was mildly hypokalemic which was repleted, improved and was 3.4 on the date of discharge. We did have a long discussion related to her frustrations with her primary care provider's office. She felt she should have had phone calls back from her PCP related to how she was feeling. She was also convinced her symptoms on admission were related to nitrofurantoin. We discussed that it is entirely possible given the infiltrate seen on her CT that her symptoms had to do with that rather than the nitrofurantoin. I also advised that primary care clinics are very busy and it is entirely possible that her PCP did not even get the messages from their staff regarding her phone calls. She did admit she received 2 phone calls yesterday that could have been from her PCPs office but she did not answer them she was in the hospital. She felt significantly improved, had no urinary symptoms and no respiratory symptoms on the date of discharge. She is discharged in stable condition. Status at Discharge Cognitive/behavioral status at discharge: at baseline, oriented Overall status at discharge: patient is progressing back to baseline Time Spent with Patient Time spent: Greater than 30 minutes Exam Vital Signs (past 8 hours): - 01/09/25 07:58 01/09/25 08:00 Temperature 97.7 F Pulse Rate 82 Respiratory Rate 16 Blood Pressure 126/76 Pulse Oximetry 98 Oxygen Delivery Method Room Air Oxygen Delivery Method Room Air Oxygen Flow Rate 0 Narrative Exam Narrative: GEN: Elderly female, Alert and oriented x 3, NAD HEENT:NC, Face symmetric CHEST: Respiratory excursions symmetric, CTAB CV: RRR, no M/R/G ABD: Soft, NT/ND, BT present in all 4 quadrants, no organomegaly or masses EXTR: warm, well perfused, no C/C/E SKIN: warm and dry, no rash NEURO: Alert and oriented x 3, nonfocal Objective Labs 01/08/25 18:01 01/09/25 04:28 Labs: Laboratory Results - last 24 hr 01/08/25 01/09/25 18:01 04:28 WBC 10.3 D RBC 3.36 L Hgb 10.4 L Hct 31.6 L MCV 93.9 MCH 31.0 MCHC 33.0 RDW 17.8 H Plt Count 245 Neut % (Auto) 65.5 D Lymph % (Auto) 9.4 L [place] % (Auto) 3.5 Eos % (Auto) 21.3 H Baso % (Auto) 0.3 Neut # (Auto) 6700 Lymph # (Auto) 1000 L [place] # (Auto) 400 Eos # (Auto) 2200 H Baso # (Auto) 0 Sodium 135 L Potassium 3.4 Chloride 105 Carbon Dioxide 24 BUN 10 Creatinine 0.47 L Estimated GFR > 60 BUN/Creatinine Ratio 21.3 Glucose 83 Calcium 8.2 L PFSH Medical History Abdominal aortic aneurysm (AAA) 3.0 cm to 5.0 cm in diameter in female Altered bowel habits Bochdalek hernia Constipation Depression with anxiety Esophageal thickening GERD (gastroesophageal reflux disease) Gross hematuria Hiatal hernia History of smoking History of UTI Hx of small bowel obstruction Lower urinary tract symptoms (LUTS) Non-compliance Obstructive defect of renal pelvis Postmenopausal atrophic vaginitis Postmenopausal atrophic vaginitis Pulmonary emphysema Pulmonary nodules/lesions, multiple Right kidney stone Right nephrolithiasis Right nephrolithiasis Tobacco use disorder Tobacco use disorder, moderate, in early remission Surgical History H/O: hysterectomy History of laparoscopic cholecystectomy Family History Father Hearing impairment UTI (urinary tract infection) Kidney stones Social History household members: family Smoking Status: Former smoker quit status: considering quitting second hand exposure: No alcohol intake: current substance use type: does not use Discharge Plan Discharge Plan Patient Disposition: Home Health Service Provider Discharge Comment: You were admitted with a small pneumonia in your right upper lung. It was likely due to an aspiration event. You will be discharged on levofloxacin. Please buy and start probiotics twice daily and continue for 2 weeks after completing the antibiotics. Return to the ED: Fevers/chills/shortness of breath Inability to hold down food/fluids/medications Discharge orders & Medications Prescriptions: New levofloxacin 750 mg tablet 750 mg PO DAILY Qty: 5 0RF Continued atorvastatin 20 mg tablet 20 mg PO QPM Qty: 90 3RF Rx Instructions: Take 1 tablet daily for hyperlipidemia paroxetine HCl 20 mg tablet 20 mg PO DAILY Qty: 90 0RF omeprazole 20 mg capsule,delayed release(DR/EC) 20 mg PO BID bisacodyl 10 mg Suppository 10 mg WI PRN PRN (Reason: Constipation) Qty: 3 0RF Discontinued nitrofurantoin macrocrystal 100 mg capsule 100 mg PO BID Qty: 6 0RF Rx Instructions: must administer with a meal/food pantoprazole 20 mg Tablet,Delayed Release (Dr/Ec) 20 mg PO BIDAC Qty: 30 0RF Follow up/Referrals: Harry Jaime DO [Primary Care Provider, Family Practice] Diet/Activity/Treatments Diet: Diet as Tolerated and Regular Activity: As tolerated Oxygen: N/A Visit Report/Discharge Packet Instructions: Aspiration Pneumonia Stand Alone Forms: Patient Portal/API, Stroke Signs & Symptoms Discharge Data Primary Care Provider: Harry Jaime
--- NOTE | 2025-01-10 07:13 | CM.DPC ---
DCP Discharge Home Per MD, pt is medically stable to d/c home today with HH and outpt f/u and no identified barriers to discharge. Per RN, discharge instructions provided and transport home arrived and no concerns noted. SW alerted TCM team for outpt f/u with her PCP Dr. Jaime and secure emailed discharge summary to [facility] to review for Resumption of HH, F2F and orders previously sent. SRIKANTH Landers
== END 2025-01-09 14:24 | disposition home health service (06) | DRG 179 ==
LOC: ED 19:58 → AC 21:30 → ICU 21:57
PROVIDERS: Emergency Medicine; Admitting Provider Internal Medicine; Emergency Provider Emergency Medicine; PCP Family Medicine; Referring Provider Emergency Medicine; Visit Provider Internal Medicine
DX: J69.0 Pneumonitis due to inhalation of food and vomit (principal); R53.1 Weakness; F32.A Depression, unspecified; E78.5 Hyperlipidemia, unspecified; K21.9 Gastro-esophageal reflux disease without esophagitis; I71.23 Aneurysm of the descending thoracic aorta, without rupture; E87.6 Hypokalemia; Z87.440 Personal history of urinary (tract) infections; Z88.0 Allergy status to penicillin; Z88.1 Allergy status to other antibiotic agents; Z87.891 Personal history of nicotine dependence
CPT/HCPCS: 36415; 71045; 71275; 74174; 80048; 80053; 81001; 82550; 83605; 83690; 83735; 83880; 84484; 85025; 85610; 85730; 87040; 87797; 96365; 97116; 97161; 97165; 97530; 99284; 99291; J1644; J1956; Q9967

== ENCOUNTER → 2025-03-03 13:28 | Outpatient (CLI) | payer OTHER, SELFPAY | PROVIDERS: PCP Family Medicine; Visit Provider Chiropractor | DX: R30.0 Dysuria (principal); N94.9 Unspecified condition associated with female genital organs and menstrual cycle | CPT/HCPCS: 87086; 87210 ==